=== PATIENT | male | born 1980 | race Two or more races ===

== ENCOUNTER 2018-08-30 14:46 | Emergency (ER) | payer MEDICAID ==
[~2018-08-30] VITALS: Ht 167.6 cm; Wt 90.0 kg
[2018-08-30 16:38] LABS: BASOPHILS % 0.3 % (0.0-2.0); EOSINOPHILS % 0.5 % (0.0-5.0); HEMATOCRIT. 47.7 % (42.0-52.0); HEMOGLOBIN. 16.1 g/dL (14.0-18.0); LYMPHOCYTES % 16.2 % (20.0-50.0); MEAN CORPUSCULAR HEMOGLOBIN 32.7 pg (28.0-32.0); MEAN CORPUSCULAR VOLUME 96.9 fL (80.0-94.0); MONOCYTES % 11.9 % (2.0-8.0); NEUTROPHILS % 71.1 % (40.0-76.0); RED BLOOD CELL COUNT 4.92 mill/uL (4.7-6.1); RED CELL DISTRIBUTION WIDTH 14.5 % (11.6-14.6)
[2018-08-30 16:39] LABS: CHLORIDE 105 mEq/L (98-107)
[2018-08-30 16:46] LABS: ETHANOL BLOOD < 10 mg/dL
[2018-08-30 16:52] LABS: CLARITY URINE CLEAR (CLEAR); COLOR URINE YELLOW (YELLOW); KETONES URINE TRACE (NEGATIVE); LEUKOCYTE ESTERASE URINE NEGATIVE (NEGATIVE); NITRITE URINE NEGATIVE (NEGATIVE); OCCULT BLOOD URINE NEGATIVE (NEGATIVE); PROTEIN URINE 1+ (NEGATIVE); UROBILINOGEN URINE 0.2 E.U./dL (0.2-1.0)
[2018-08-30 16:56] LABS: MEAN PLATELET VOLUME 9.3 fl (7.4-10.4); PLATELET 220 x1000/uL (130-400)
[2018-08-30] MEDS ORDERED: LORAZEPAM 1MG TABLET PO ONE (18:30)
[2018-08-31 04:06] VITALS: BP 153/98
[2018-08-31 08:13] LABS: *AMPHETAMINES SCREEN URINE NEGATIVE (NEGATIVE); *BARBITURATES SCREEN URINE NEGATIVE (NEGATIVE); *BENZODIAZEPINES SCREEN URINE NEGATIVE (NEGATIVE); *COCAINE SCREEN URINE NEGATIVE (NEGATIVE); METHADONE URINE SCREEN NEGATIVE (NEGATIVE)
[2018-08-31 08:14] LABS: CANNABINOID URINE SCREEN NEGATIVE (NEGATIVE); OPIATES URINE SCREEN NEGATIVE (NEGATIVE); PHENCYCLIDINE URINE SCREEN NEGATIVE (NEGATIVE)
== END 2018-08-31 10:39 | disposition home or self-care (01) ==
LOC: ER 14:49
DX: R51 Headache (principal); F17.200 Nicotine dependence, unspecified, uncomplicated
CPT/HCPCS: 36415; 80305; 80307; 80320; 99283; G0480

== ENCOUNTER 2019-01-29 22:44 | Emergency (ER) | payer MEDICAID ==
[~2019-01-29] VITALS: Ht 175.3 cm; Wt 80.0 kg
[2019-01-29] MEDS ORDERED: SODIUM CHLORIDE 0.9% 1,000 ML IV ONE ×2 (23:14)
[2019-01-29] MEDS ORDERED: LORAZEPAM 2MG/ML CPJ IV ONE (23:15)
[2019-01-29] MEDS ORDERED: ONDANSETRON HCL 4MG/2ML INJ IV PRN (23:15)
[2019-01-29 23:33] LABS: BASOPHILS % 0.2 % (0.0-2.0); EOSINOPHILS % 0.2 % (0.0-5.0); HEMOGLOBIN. 16.7 g/dL (14.0-18.0); LYMPHOCYTES % 11.9 % (20.0-50.0); MEAN CORPUSCULAR HEMOGLOBIN 33.2 pg (28.0-32.0); MEAN CORPUSCULAR VOLUME 97.6 fL (80.0-94.0); MEAN PLATELET VOLUME 8.9 fl (7.4-10.4); MONOCYTES % 5.1 % (2.0-8.0); NEUTROPHILS % 82.6 % (40.0-76.0); PLATELET 224 x1000/uL (130-400); RED BLOOD CELL COUNT 5.02 mill/uL (4.7-6.1); RED CELL DISTRIBUTION WIDTH 13.9 % (11.6-14.6)
[2019-01-29 23:38] LABS: CHLORIDE 107 mEq/L (98-107)
[2019-01-29 23:43] LABS: ETHANOL BLOOD 76 mg/dL
[2019-01-29 23:58] LABS: CLARITY URINE CLEAR (CLEAR); COLOR URINE YELLOW (YELLOW); KETONES URINE TRACE (NEGATIVE); LEUKOCYTE ESTERASE URINE NEGATIVE (NEGATIVE); NITRITE URINE NEGATIVE (NEGATIVE); OCCULT BLOOD URINE NEGATIVE (NEGATIVE); PH URINE 7.5 (4.5-8.0); PROTEIN URINE 1+ (NEGATIVE)
[2019-01-30 00:16] LABS: CANNABINOID URINE SCREEN NEGATIVE (NEGATIVE)
[2019-01-30 00:17] LABS: *AMPHETAMINES SCREEN URINE PRESUMTIVE POSITIVE (NEGATIVE); *BARBITURATES SCREEN URINE NEGATIVE (NEGATIVE); *BENZODIAZEPINES SCREEN URINE NEGATIVE (NEGATIVE); *COCAINE SCREEN URINE NEGATIVE (NEGATIVE); OPIATES URINE SCREEN NEGATIVE (NEGATIVE); PHENCYCLIDINE URINE SCREEN NEGATIVE (NEGATIVE)
[2019-01-30 00:19] LABS: METHADONE URINE SCREEN NEGATIVE (NEGATIVE)
[2019-01-30] MEDS ORDERED: LORAZEPAM 2MG/ML CPJ IV ONE (01:30)
[2019-01-30 06:52] VITALS: BP 151/102
== END 2019-01-30 06:53 | disposition home or self-care (01) ==
LOC: ER 22:44
DX: F15.10 Other stimulant abuse, uncomplicated (principal); F20.9 Schizophrenia, unspecified
CPT/HCPCS: 36415; 71045; 74018; 80053; 80305; 80307; 80320; 80329; 81003; 85025; 93005; 96374; 96375; 96376; 99284; J2060; J2405; J7030; G0480

== ENCOUNTER 2019-01-30 22:50 | Emergency (ER) | payer MEDICAID ==
[~2019-01-30] VITALS: Ht 170.2 cm; Wt 100.0 kg
[2019-01-30] MEDS ORDERED: IBUPROFEN 600MG TABLET PO STA (23:43)
[2019-01-31 02:06] VITALS: BP 164/93
== END 2019-01-31 02:09 | disposition home or self-care (01) ==
LOC: ER 22:50
DX: R07.81 Pleurodynia (principal); F20.9 Schizophrenia, unspecified; F22 Delusional disorders; F15.10 Other stimulant abuse, uncomplicated; L98.8 Other specified disorders of the skin and subcutaneous tissue; Z98.890 Other specified postprocedural states
CPT/HCPCS: 71045; 99283

== ENCOUNTER 2019-02-07 02:13 | Emergency (ER) | payer MEDICAID ==
[~2019-02-07] VITALS: Ht 167.6 cm; Wt 100.0 kg
[2019-02-07] MEDS ORDERED: DIPHENHYDRAMINE 25MG CAPSULE PO ONE (03:15)
[2019-02-07] MEDS ORDERED: LORAZEPAM 1MG TABLET PO ONE (03:15)
[2019-02-07 05:52] VITALS: BP 179/122
== END 2019-02-07 06:20 | disposition home or self-care (01) ==
LOC: ER 02:13
DX: S60.562A Insect bite (nonvenomous) of left hand, initial encounter (principal); F15.10 Other stimulant abuse, uncomplicated; F20.9 Schizophrenia, unspecified; W57.XXXA Bitten or stung by nonvenomous insect and other nonvenomous arthropods, initial encounter; Y93.89 Activity, other specified; Y92.018 Other place in single-family (private) house as the place of occurrence of the external cause
CPT/HCPCS: 73130; 93005; 99283; Q0163

== ENCOUNTER 2019-03-17 23:02 | Emergency (ER) | payer MEDICAID ==
[~2019-03-17] VITALS: Ht 170.2 cm; Wt 100.0 kg
[2019-03-18] MEDS ORDERED: IBUPROFEN 600MG TABLET PO ONE (02:15)
[2019-03-18] MEDS ORDERED: LORAZEPAM 1MG TABLET PO ONE (02:15)
[2019-03-18 10:43] LABS: *AMPHETAMINES SCREEN URINE PRESUMTIVE POSITIVE (NEGATIVE); *BARBITURATES SCREEN URINE NEGATIVE (NEGATIVE); *BENZODIAZEPINES SCREEN URINE NEGATIVE (NEGATIVE); *COCAINE SCREEN URINE NEGATIVE (NEGATIVE); METHADONE URINE SCREEN NEGATIVE (NEGATIVE); OPIATES URINE SCREEN NEGATIVE (NEGATIVE)
[2019-03-18 10:45] LABS: CANNABINOID URINE SCREEN NEGATIVE (NEGATIVE); PHENCYCLIDINE URINE SCREEN NEGATIVE (NEGATIVE)
[2019-03-18 10:46] VITALS: BP 112/68
== END 2019-03-18 14:00 | disposition left against medical advice (07) ==
LOC: ER 23:02
DX: F15.188 Other stimulant abuse with other stimulant-induced disorder (principal); F22 Delusional disorders; R44.0 Auditory hallucinations; R03.0 Elevated blood-pressure reading, without diagnosis of hypertension
CPT/HCPCS: 80305; 93005; 99284

== ENCOUNTER 2019-03-29 09:58 | Inpatient (IN) | payer MEDICAID ==
[~2019-03-29] VITALS: Ht 167.6 cm; Wt 104.3 kg
[2019-03-29] MEDS ORDERED: SODIUM CHLORIDE 0.9% 1,000 ML IV ONE (10:31)
[2019-03-29] MEDS ORDERED: LORAZEPAM 2MG/ML CPJ IV ONE ×2 (10:45→11:15)
[2019-03-29 10:58] LABS: BASOPHILS % 0.2 % (0.0-2.0); HEMATOCRIT. 48.5 % (42.0-52.0); HEMOGLOBIN. 16.5 g/dL (14.0-18.0); LYMPHOCYTES % 9.8 % (20.0-50.0); MEAN CORPUSCULAR HEMOGLOBIN 32.7 pg (28.0-32.0); MEAN CORPUSCULAR VOLUME 95.9 fL (80.0-94.0); MEAN PLATELET VOLUME 9.2 fl (7.4-10.4); MONOCYTES % 6.6 % (2.0-8.0); NEUTROPHILS % 83.4 % (40.0-76.0); PLATELET 236 x1000/uL (130-400); RED BLOOD CELL COUNT 5.05 mill/uL (4.7-6.1); RED CELL DISTRIBUTION WIDTH 14.2 % (11.6-14.6)
[2019-03-29 11:06] LABS: CHLORIDE 107 mEq/L (98-107)
[2019-03-29 11:11] LABS: ETHANOL BLOOD 52 mg/dL
[2019-03-29] MEDS ORDERED: ENALAPRIL 2.5MG/2ML VIAL 2ML IV ONE (11:45)
[2019-03-29] MEDS ORDERED: NICARDIPINE 40MG/200ML PREMIX 200 ML IV STA (12:08)
[2019-03-29 12:09] LABS: CREATINE KINASE MB FRACTION 1.7 ng/mL (0.5-3.6)
[2019-03-29] MEDS ORDERED: ASPIRIN 81MG TABLET PO ONE (12:15)
[2019-03-29 13:29] LABS: CLARITY URINE TURBID (CLEAR); COLOR URINE YELLOW (YELLOW); KETONES URINE 1+ (NEGATIVE); LEUKOCYTE ESTERASE URINE NEGATIVE (NEGATIVE); NITRITE URINE NEGATIVE (NEGATIVE); OCCULT BLOOD URINE TRACE (NEGATIVE); PROTEIN URINE 1+ (NEGATIVE); SPECIFIC GRAVITY URINE 1.025 (1.005-1.030); UROBILINOGEN URINE 0.2 E.U./dL (0.2-1.0)
[2019-03-29 13:43] LABS: *COCAINE SCREEN URINE NEGATIVE (NEGATIVE); METHADONE URINE SCREEN NEGATIVE (NEGATIVE); OPIATES URINE SCREEN NEGATIVE (NEGATIVE)
[2019-03-29 13:44] LABS: *AMPHETAMINES SCREEN URINE PRESUMTIVE POSITIVE (NEGATIVE); *BARBITURATES SCREEN URINE NEGATIVE (NEGATIVE); *BENZODIAZEPINES SCREEN URINE NEGATIVE (NEGATIVE); CANNABINOID URINE SCREEN NEGATIVE (NEGATIVE); PHENCYCLIDINE URINE SCREEN NEGATIVE (NEGATIVE)
[2019-03-29] MEDS ORDERED: LORAZEPAM 2MG/ML CPJ IV PRN (17:15)
[2019-03-29] MEDS ORDERED: HYDRALAZINE 20MG/ML VIAL IV PRN (17:15)
[2019-03-29 17:47] VITALS: BP 173/105
[2019-03-29 18:01] VITALS: BP 165/98
[2019-03-29] MEDS ORDERED: ACETAMINOPHEN 325MG TABLET PO PRN (19:15)
[2019-03-29] MEDS ORDERED: CLONIDINE 0.1MG TABLET PO PRN (19:15)
[2019-03-29] MEDS ORDERED: ONDANSETRON HCL 4MG/2ML INJ IV PRN (19:15)
[2019-03-29] MEDS ORDERED: MAGNESIUM/ALUMINUM HYDROXIDE/SIMETHICONE 30ML UDC PO PRN (19:15)
[2019-03-29] MEDS ORDERED: DIPHENHYDRAMINE 50MG/ML VIAL IV PRN (19:15)
[2019-03-29] MEDS ORDERED: INFLUENZA VIRUS VACCINE(AFLURIA) 0.5ML SYR IM ONE (19:45)
[2019-03-29 20:00] VITALS: BP 156/90
[2019-03-29] MEDS: NIFEDIPINE XL 60MG TAB PO SCH (20:16)
[2019-03-29] MEDS ORDERED: PNEUMOCOCCAL 23-VAL P-SAC VAC 0.5 ML IM ONE (21:45)
[2019-03-29 22:00] VITALS: BP 129/75
[2019-03-29] MEDS ORDERED: CHLORDIAZEPOXIDE 25MG CAPSULE PO SCH (22:00)
[2019-03-29] MEDS: SODIUM CHLORIDE 0.9% INJ 3ML FLUSH IVF SCH (22:00)
[2019-03-29] MEDS: DIAZEPAM 5 MG TABLET PO SCH (22:10)
[2019-03-30] VITALS (12 sets, daily range): BP systolic 102–146; BP diastolic 57–83
[2019-03-30] MEDS: DIAZEPAM 5 MG TABLET PO SCH ×2 (06:12→14:27)
[2019-03-30] MEDS: SODIUM CHLORIDE 0.9% INJ 3ML FLUSH IVF SCH ×3 (06:12→22:00)
[2019-03-30] MEDS: NIFEDIPINE XL 60MG TAB PO SCH (09:29)
[2019-03-30] MEDS ORDERED: CEFTRIAXONE SODIUM 1 G/VIAL IM ONE (18:30)
[2019-03-30] MEDS ORDERED: CEFTRIAXONE 1 G PREMIX 50 ML IV SCH (20:00)
[2019-03-31] VITALS: BP 140/73
[2019-03-31 00:43] VITALS: BP 140/73
[2019-03-31 02:01] VITALS: BP 121/76
[2019-03-31 04:00] VITALS: BP 104/60
[2019-03-31] MEDS: SODIUM CHLORIDE 0.9% INJ 3ML FLUSH IVF SCH (06:31)
[2019-03-31] MEDS ORDERED: NIFE10CA PO (06:45)
[2019-03-31 06:51] VITALS: BP 125/72
[2019-03-31 07:30] VITALS: BP 127/65
[2019-03-31] MEDS ORDERED: NIFEDIPINE XL 30MG TAB PO SCH (09:00)
== END 2019-03-31 07:52 | disposition home or self-care (01) | DRG 52 ==
LOC: ER 09:58 → 3WST 14:15 → EDBEDREQTM 14:18 → EDBEDREQSVC 14:18 → ENRESERV 14:24
PROVIDERS: ADMIT Internal Medicine; ATTEND Internal Medicine
DX: G92 Toxic encephalopathy (principal); E66.01 Morbid (severe) obesity due to excess calories; I10 Essential (primary) hypertension; A46 Erysipelas; I16.1 Hypertensive emergency; Z68.37 Body mass index [BMI] 37.0-37.9, adult; Z79.899 Other long term (current) drug therapy; Z87.891 Personal history of nicotine dependence
CPT/HCPCS: 36415; 71045; 80305; 80307; 80320; 80329; 81003; 82550; 82553; 84443; 84484; 90686; 90732; 93005; 93970; 99291; J0360; J0696; J2060; J3490; J7030; G0480

== ENCOUNTER 2019-04-13 23:00 | Emergency (ER) | payer MEDICAID, OTHER ==
[~2019-04-13] VITALS: Ht 170.2 cm; Wt 109.0 kg
[~2019-04-13 23:00] MED LIST: NIFE10CA PO
[2019-04-13] MEDS ORDERED: KETOROLAC 30MG/ML VIAL IV STA (23:45)
[2019-04-13] MEDS ORDERED: SODIUM CHLORIDE 0.9% 1,000 ML IV ONE (23:45)
[2019-04-14 00:21] LABS: BASOPHILS % 0.2 % (0.0-2.0); EOSINOPHILS % 0.4 % (0.0-5.0); HEMATOCRIT. 44.7 % (42.0-52.0); HEMOGLOBIN. 15.4 g/dL (14.0-18.0); LYMPHOCYTES % 12.4 % (20.0-50.0); MEAN CORPUSCULAR HEMOGLOBIN 32.6 pg (28.0-32.0); MEAN PLATELET VOLUME 9.1 fl (7.4-10.4); MONOCYTES % 9.3 % (2.0-8.0); NEUTROPHILS % 77.7 % (40.0-76.0); PLATELET 203 x1000/uL (130-400); RED BLOOD CELL COUNT 4.71 mill/uL (4.7-6.1); RED CELL DISTRIBUTION WIDTH 13.7 % (11.6-14.6)
[2019-04-14 00:29] LABS: CHLORIDE 104 mEq/L (98-107)
[2019-04-14 00:31] LABS: ETHANOL BLOOD < 10 mg/dL
[2019-04-14 00:55] LABS: CLARITY URINE CLEAR (CLEAR); COLOR URINE YELLOW (YELLOW); KETONES URINE NEGATIVE (NEGATIVE); LEUKOCYTE ESTERASE URINE NEGATIVE (NEGATIVE); NITRITE URINE NEGATIVE (NEGATIVE); OCCULT BLOOD URINE NEGATIVE (NEGATIVE); PH URINE 7.5 (4.5-8.0); PROTEIN URINE NEGATIVE (NEGATIVE); SPECIFIC GRAVITY URINE 1.018 (1.005-1.030); UROBILINOGEN URINE 0.2 E.U./dL (0.2-1.0)
[2019-04-14 01:06] LABS: *BENZODIAZEPINES SCREEN URINE NEGATIVE (NEGATIVE); *COCAINE SCREEN URINE NEGATIVE (NEGATIVE); METHADONE URINE SCREEN NEGATIVE (NEGATIVE)
[2019-04-14 01:07] LABS: *AMPHETAMINES SCREEN URINE NEGATIVE (NEGATIVE); *BARBITURATES SCREEN URINE NEGATIVE (NEGATIVE); CANNABINOID URINE SCREEN NEGATIVE (NEGATIVE); OPIATES URINE SCREEN NEGATIVE (NEGATIVE); PHENCYCLIDINE URINE SCREEN NEGATIVE (NEGATIVE)
[2019-04-14] MEDS ORDERED: IOHEXOL-300 100 ML BOTTLE ONE (04:41)
[2019-04-14 05:25] VITALS: BP 132/97
== END 2019-04-14 05:34 | disposition home or self-care (01) ==
LOC: ER 23:00
DX: R10.31 Right lower quadrant pain (principal); I10 Essential (primary) hypertension; F12.10 Cannabis abuse, uncomplicated; F17.200 Nicotine dependence, unspecified, uncomplicated
CPT/HCPCS: 36415; 74177; 80053; 80305; 80320; 81003; 83690; 85025; 96374; 99284; J1885; J7030; Q9967; Z7610; G0480

== ENCOUNTER 2019-04-20 03:52 | Emergency (ER) | payer MEDICAID ==
[~2019-04-20] VITALS: Ht 167.6 cm; Wt 100.0 kg
[2019-04-20] MEDS ORDERED: MORPHINE SULFATE 4 MG/ML CPJ (NOT FOR IM USE) IV STA (04:14)
[2019-04-20] MEDS ORDERED: ONDANSETRON HCL 4MG/2ML INJ IV STA (04:14)
[2019-04-20] MEDS ORDERED: SODIUM CHLORIDE 0.9% 1,000 ML IV ONE ×2 (04:14→10:04)
[2019-04-20 04:37] LABS: BASOPHILS % 0.5 % (0.0-2.0); HEMATOCRIT. 45.5 % (42.0-52.0); HEMOGLOBIN. 15.5 g/dL (14.0-18.0); LYMPHOCYTES % 13.3 % (20.0-50.0); MEAN CORPUSCULAR HEMOGLOBIN 32.4 pg (28.0-32.0); MEAN PLATELET VOLUME 8.9 fl (7.4-10.4); MONOCYTES % 6.4 % (2.0-8.0); NEUTROPHILS % 79.8 % (40.0-76.0); PLATELET 261 x1000/uL (130-400); RED BLOOD CELL COUNT 4.79 mill/uL (4.7-6.1); RED CELL DISTRIBUTION WIDTH 14.1 % (11.6-14.6)
[2019-04-20 04:41] LABS: CHLORIDE 108 mEq/L (98-107)
[2019-04-20 04:42] LABS: INR 1.1
[2019-04-20] MEDS ORDERED: AMOXICILLIN/POTASSIUM CLAVULANATE 875/125MG TAB PO ONE (05:45)
[2019-04-20] MEDS ORDERED: MORPHINE SULFATE 4 MG/ML CPJ (NOT FOR IM USE) IV ONE (06:45)
[2019-04-20 07:08] LABS: CLARITY URINE CLEAR (CLEAR); COLOR URINE YELLOW (YELLOW); KETONES URINE 1+ (NEGATIVE); LEUKOCYTE ESTERASE URINE NEGATIVE (NEGATIVE); NITRITE URINE NEGATIVE (NEGATIVE); OCCULT BLOOD URINE TRACE (NEGATIVE); PH URINE 5.5 (4.5-8.0); PROTEIN URINE TRACE (NEGATIVE); SPECIFIC GRAVITY URINE 1.019 (1.005-1.030); UROBILINOGEN URINE 0.2 E.U./dL (0.2-1.0)
[2019-04-20] MEDS ORDERED: LORAZEPAM 2MG/ML CPJ IV ONE (10:15)
[2019-04-20] MEDS ORDERED: LORAZEPAM 1MG TABLET PO ONE (10:15)
[2019-04-20 14:28] LABS: *AMPHETAMINES SCREEN URINE PRESUMTIVE POSITIVE (NEGATIVE); *BARBITURATES SCREEN URINE NEGATIVE (NEGATIVE); *BENZODIAZEPINES SCREEN URINE NEGATIVE (NEGATIVE); *COCAINE SCREEN URINE NEGATIVE (NEGATIVE)
[2019-04-20 14:29] LABS: CANNABINOID URINE SCREEN NEGATIVE (NEGATIVE); METHADONE URINE SCREEN NEGATIVE (NEGATIVE); OPIATES URINE SCREEN PRESUMTIVE POSITIVE (NEGATIVE); PHENCYCLIDINE URINE SCREEN NEGATIVE (NEGATIVE)
[2019-04-21] MEDS ORDERED: ACETAMINOPHEN 500MG TABLET PO ONE (00:15)
[2019-04-21] MEDS ORDERED: ACETAMINOPHEN 325MG TABLET PO STA (14:34)
[2019-04-21 15:45] VITALS: BP 134/77
== END 2019-04-21 16:00 | disposition home or self-care (01) ==
LOC: ER 03:58
DX: K57.32 Diverticulitis of large intestine without perforation or abscess without bleeding (principal); T43.621A Poisoning by amphetamines, accidental (unintentional), initial encounter; I10 Essential (primary) hypertension; Z79.899 Other long term (current) drug therapy; Y92.89 Other specified places as the place of occurrence of the external cause
CPT/HCPCS: 36415; 71045; 74176; 80053; 80305; 81003; 83690; 84484; 85025; 85610; 93005; 96374; 96375; 96376; 99284; J2060; J2270; J2405; J7030; Z7610

== ENCOUNTER 2019-04-23 00:36 | Emergency (ER) | payer MEDICAID ==
[~2019-04-23] VITALS: Ht 170.2 cm; Wt 100.0 kg
[2019-04-23 01:05] VITALS: BP 160/105
[2019-04-23] MEDS ORDERED: ACETAMINOPHEN 500MG TABLET PO ONE (01:15)
== END 2019-04-23 05:43 | disposition home or self-care (01) ==
LOC: ER 00:36
DX: G89.29 Other chronic pain (principal); R10.30 Lower abdominal pain, unspecified; F15.10 Other stimulant abuse, uncomplicated; R51 Headache; Z98.890 Other specified postprocedural states
CPT/HCPCS: 99283; Z7610

== ENCOUNTER 2019-05-23 05:29 | Emergency (ER) | payer MEDICAID ==
[~2019-05-23] VITALS: Ht 172.7 cm; Wt 100.0 kg
[2019-05-23] MEDS ORDERED: IBUPROFEN 600MG TABLET PO STA (09:00)
[2019-05-23 10:02] VITALS: BP 193/127
[2019-05-23] MEDS ORDERED: LORAZEPAM 1MG TABLET PO ONE (10:15)
[2019-05-23 10:21] LABS: CLARITY URINE CLEAR (CLEAR); COLOR URINE YELLOW (YELLOW); KETONES URINE TRACE (NEGATIVE); LEUKOCYTE ESTERASE URINE NEGATIVE (NEGATIVE); NITRITE URINE NEGATIVE (NEGATIVE); OCCULT BLOOD URINE NEGATIVE (NEGATIVE); PH URINE 5.5 (4.5-8.0); PROTEIN URINE 1+ (NEGATIVE); SPECIFIC GRAVITY URINE 1.022 (1.005-1.030); UROBILINOGEN URINE 0.2 E.U./dL (0.2-1.0)
[2019-05-23 11:02] LABS: *AMPHETAMINES SCREEN URINE PRESUMTIVE POSITIVE (NEGATIVE)
[2019-05-23 11:03] LABS: *BARBITURATES SCREEN URINE NEGATIVE (NEGATIVE); *BENZODIAZEPINES SCREEN URINE NEGATIVE (NEGATIVE); *COCAINE SCREEN URINE NEGATIVE (NEGATIVE); METHADONE URINE SCREEN NEGATIVE (NEGATIVE); OPIATES URINE SCREEN NEGATIVE (NEGATIVE); PHENCYCLIDINE URINE SCREEN NEGATIVE (NEGATIVE)
[2019-05-23 11:04] LABS: CANNABINOID URINE SCREEN NEGATIVE (NEGATIVE)
== END 2019-05-23 11:19 | disposition home or self-care (01) ==
LOC: ER 05:29
DX: F15.10 Other stimulant abuse, uncomplicated (principal); F17.210 Nicotine dependence, cigarettes, uncomplicated
CPT/HCPCS: 36415; 71045; 73552; 80305; 80320; 81003; 93005; 99284; G0480

== ENCOUNTER 2019-05-23 20:37 | Emergency (ER) | payer MEDICAID, OTHER ==
[~2019-05-23] VITALS: Ht 182.9 cm; Wt 96.0 kg
[2019-05-23 23:32] LABS: BASOPHILS % 0.4 % (0.0-2.0); EOSINOPHILS % 0.1 % (0.0-5.0); HEMATOCRIT. 48.9 % (42.0-52.0); HEMOGLOBIN. 16.4 g/dL (14.0-18.0); LYMPHOCYTES % 15.9 % (20.0-50.0); MEAN CORPUSCULAR HEMOGLOBIN 31.9 pg (28.0-32.0); MEAN CORPUSCULAR VOLUME 95.3 fL (80.0-94.0); MONOCYTES % 10.1 % (2.0-8.0); NEUTROPHILS % 73.5 % (40.0-76.0); PLATELET 231 x1000/uL (130-400); RED BLOOD CELL COUNT 5.14 mill/uL (4.7-6.1)
[2019-05-23 23:40] LABS: CHLORIDE 102 mEq/L (98-107)
[2019-05-24] MEDS ORDERED: SODIUM CHLORIDE 0.9% 1,000 ML IV ONE (00:13)
[2019-05-24 01:49] LABS: *AMPHETAMINES SCREEN URINE PRESUMTIVE POSITIVE (NEGATIVE); *BARBITURATES SCREEN URINE NEGATIVE (NEGATIVE)
[2019-05-24 01:51] LABS: *BENZODIAZEPINES SCREEN URINE NEGATIVE (NEGATIVE); *COCAINE SCREEN URINE NEGATIVE (NEGATIVE); CANNABINOID URINE SCREEN NEGATIVE (NEGATIVE); METHADONE URINE SCREEN NEGATIVE (NEGATIVE); OPIATES URINE SCREEN NEGATIVE (NEGATIVE); PHENCYCLIDINE URINE SCREEN NEGATIVE (NEGATIVE)
[2019-05-24 02:03] LABS: HEPATITIS B SURFACE ANTIGEN NEGATIVE
[2019-05-24 02:32] LABS: HEPATITIS A AB IGM NEGATIVE (NEGATIVE)
[2019-05-24 07:01] VITALS: BP 143/82
[2019-05-26 13:06] LABS: HIV SCREEN 4G Non Reactive (Non Reactive)
== END 2019-05-24 07:03 | disposition home or self-care (01) ==
LOC: ER 20:37
DX: R07.89 Other chest pain (principal); F15.10 Other stimulant abuse, uncomplicated
CPT/HCPCS: 36415; 71045; 80053; 80305; 84484; 85025; 87389; 93005; 99284; J7030; 86705; 86709; 86803; 87340

== ENCOUNTER 2019-05-25 02:26 | Emergency (ER) | payer MEDICAID ==
[~2019-05-25] VITALS: Ht 165.1 cm; Wt 100.0 kg
[2019-05-25] MEDS ORDERED: ACETAMINOPHEN 325MG TABLET PO ONE (03:30)
[2019-05-25 04:08] VITALS: BP 154/107
== END 2019-05-25 04:27 | disposition home or self-care (01) ==
LOC: ER 02:26
DX: M79.605 Pain in left leg (principal); F99 Mental disorder, not otherwise specified; F15.10 Other stimulant abuse, uncomplicated
CPT/HCPCS: 93005; 99283

== ENCOUNTER 2019-05-31 23:54 | Emergency (ER) | payer MEDICAID ==
[~2019-05-31] VITALS: Ht 180.3 cm; Wt 110.0 kg
[2019-06-01] MEDS ORDERED: SODIUM CHLORIDE 0.9% 1,000 ML IV ONE ×2 (01:00→03:15)
[2019-06-01] MEDS ORDERED: LORAZEPAM 2MG/ML CPJ IV ONE ×2 (01:00→03:15)
[2019-06-01 01:17] LABS: BASOPHILS % 0.2 % (0.0-2.0); HEMATOCRIT. 48.5 % (42.0-52.0); HEMOGLOBIN. 16.3 g/dL (14.0-18.0); LYMPHOCYTES % 12.9 % (20.0-50.0); MEAN CORPUSCULAR HEMOGLOBIN 32.1 pg (28.0-32.0); MEAN CORPUSCULAR VOLUME 95.3 fL (80.0-94.0); MEAN PLATELET VOLUME 8.8 fl (7.4-10.4); MONOCYTES % 8.3 % (2.0-8.0); NEUTROPHILS % 78.6 % (40.0-76.0); PLATELET 243 x1000/uL (130-400); RED BLOOD CELL COUNT 5.09 mill/uL (4.7-6.1)
[2019-06-01 01:27] LABS: CHLORIDE 109 mEq/L (98-107)
[2019-06-01 01:31] LABS: ETHANOL BLOOD 13 mg/dL
[2019-06-01 03:18] LABS: *AMPHETAMINES SCREEN URINE PRESUMTIVE POSITIVE (NEGATIVE); *BARBITURATES SCREEN URINE NEGATIVE (NEGATIVE); *BENZODIAZEPINES SCREEN URINE NEGATIVE (NEGATIVE); *COCAINE SCREEN URINE NEGATIVE (NEGATIVE)
[2019-06-01 03:19] LABS: CANNABINOID URINE SCREEN NEGATIVE (NEGATIVE); METHADONE URINE SCREEN NEGATIVE (NEGATIVE); OPIATES URINE SCREEN NEGATIVE (NEGATIVE); PHENCYCLIDINE URINE SCREEN NEGATIVE (NEGATIVE)
[2019-06-01 07:56] VITALS: BP 131/72
== END 2019-06-01 08:00 | disposition home or self-care (01) ==
LOC: ER 23:54
DX: F15.10 Other stimulant abuse, uncomplicated (principal); R07.89 Other chest pain
CPT/HCPCS: 36415; 71045; 80053; 80305; 80320; 84484; 85025; 93005; 96374; 96376; 99284; J2060; J7030; Z7610; G0480

== ENCOUNTER 2019-06-05 03:16 | Emergency (ER) | payer MEDICAID ==
[~2019-06-05] VITALS: Ht 162.6 cm; Wt 90.0 kg
[2019-06-05] MEDS ORDERED: SODIUM CHLORIDE 0.9% 1,000 ML IV ONE (05:00)
[2019-06-05 05:12] LABS: BASOPHILS % 0.3 % (0.0-2.0); EOSINOPHILS % 0.3 % (0.0-5.0); HEMATOCRIT. 45.3 % (42.0-52.0); HEMOGLOBIN. 15.6 g/dL (14.0-18.0); LYMPHOCYTES % 18.4 % (20.0-50.0); MEAN CORPUSCULAR HEMOGLOBIN 32.2 pg (28.0-32.0); MEAN CORPUSCULAR VOLUME 93.5 fL (80.0-94.0); MEAN PLATELET VOLUME 8.9 fl (7.4-10.4); MONOCYTES % 10.8 % (2.0-8.0); NEUTROPHILS % 70.2 % (40.0-76.0); PLATELET 235 x1000/uL (130-400); RED BLOOD CELL COUNT 4.84 mill/uL (4.7-6.1); RED CELL DISTRIBUTION WIDTH 13.9 % (11.6-14.6)
[2019-06-05] MEDS ORDERED: IBUPROFEN 600MG TABLET PO ONE (05:15)
[2019-06-05 05:23] LABS: CHLORIDE 106 mEq/L (98-107)
[2019-06-05 05:23] LABS: *BARBITURATES SCREEN URINE NEGATIVE (NEGATIVE); *BENZODIAZEPINES SCREEN URINE NEGATIVE (NEGATIVE); *COCAINE SCREEN URINE PRESUMTIVE POSITIVE (NEGATIVE); METHADONE URINE SCREEN NEGATIVE (NEGATIVE); OPIATES URINE SCREEN NEGATIVE (NEGATIVE); PHENCYCLIDINE URINE SCREEN NEGATIVE (NEGATIVE)
[2019-06-05 05:24] LABS: *AMPHETAMINES SCREEN URINE NEGATIVE (NEGATIVE); CANNABINOID URINE SCREEN NEGATIVE (NEGATIVE)
[2019-06-05 05:27] LABS: ETHANOL BLOOD < 10 mg/dL
[2019-06-05] MEDS ORDERED: HYDROCODONE/ACETAMINOPHEN 5/325MG TABLET PO ONE (06:30)
[2019-06-05 08:05] VITALS: BP 121/81
== END 2019-06-05 08:08 | disposition home or self-care (01) ==
LOC: ER 03:16
DX: R07.89 Other chest pain (principal); E86.0 Dehydration; F15.10 Other stimulant abuse, uncomplicated; F14.10 Cocaine abuse, uncomplicated
CPT/HCPCS: 36415; 80053; 80305; 80320; 84484; 85025; 93005; 99284; J7030; Z7610; G0480

== ENCOUNTER 2019-06-13 07:07 | Emergency (ER) | payer MEDICAID ==
[~2019-06-13] VITALS: Ht 172.7 cm; Wt 107.0 kg
[2019-06-13 09:15] LABS: BASOPHILS % 0.3 % (0.0-2.0); EOSINOPHILS % 0.1 % (0.0-5.0); HEMATOCRIT. 43.6 % (42.0-52.0); HEMOGLOBIN. 15.2 g/dL (14.0-18.0); LYMPHOCYTES % 14.8 % (20.0-50.0); MEAN CORPUSCULAR HEMOGLOBIN 32.6 pg (28.0-32.0); MEAN CORPUSCULAR VOLUME 93.5 fL (80.0-94.0); MEAN PLATELET VOLUME 8.8 fl (7.4-10.4); MONOCYTES % 10.6 % (2.0-8.0); NEUTROPHILS % 74.2 % (40.0-76.0); PLATELET 220 x1000/uL (130-400); RED BLOOD CELL COUNT 4.66 mill/uL (4.7-6.1)
[2019-06-13 09:18] LABS: CHLORIDE 106 mEq/L (98-107)
[2019-06-13 09:21] LABS: *AMPHETAMINES SCREEN URINE PRESUMTIVE POSITIVE (NEGATIVE); *BARBITURATES SCREEN URINE NEGATIVE (NEGATIVE); *BENZODIAZEPINES SCREEN URINE NEGATIVE (NEGATIVE); *COCAINE SCREEN URINE PRESUMTIVE POSITIVE (NEGATIVE); METHADONE URINE SCREEN NEGATIVE (NEGATIVE); OPIATES URINE SCREEN NEGATIVE (NEGATIVE)
[2019-06-13 09:22] LABS: CANNABINOID URINE SCREEN NEGATIVE (NEGATIVE); PHENCYCLIDINE URINE SCREEN NEGATIVE (NEGATIVE)
[2019-06-13 09:57] VITALS: BP 148/98
== END 2019-06-13 10:00 | disposition home or self-care (01) ==
LOC: ER 07:07
DX: F15.10 Other stimulant abuse, uncomplicated (principal); F14.10 Cocaine abuse, uncomplicated
CPT/HCPCS: 36415; 71045; 80053; 80305; 83880; 84484; 85025; 93005; 99285

== ENCOUNTER 2019-07-06 06:44 | Emergency (ER) | payer MEDICAID, OTHER ==
[~2019-07-06] VITALS: Ht 170.2 cm; Wt 87.0 kg
[2019-07-06 08:50] VITALS: BP 156/99
== END 2019-07-06 09:08 | disposition home or self-care (01) ==
LOC: ER 06:44
DX: F15.10 Other stimulant abuse, uncomplicated (principal); F19.10 Other psychoactive substance abuse, uncomplicated; M79.10 Myalgia, unspecified site
CPT/HCPCS: 71045; 93005; 99283

== ENCOUNTER 2019-07-12 06:12 | Emergency (ER) | payer MEDICAID ==
[~2019-07-12] VITALS: Ht 167.6 cm; Wt 104.0 kg
[2019-07-12] MEDS ORDERED: SODIUM CHLORIDE 0.9% 1,000 ML IV ONE (06:37)
[2019-07-12 07:00] LABS: BASOPHILS % 0.3 % (0.0-2.0); HEMOGLOBIN. 16.5 g/dL (14.0-18.0); LYMPHOCYTES % 7.5 % (20.0-50.0); MEAN CORPUSCULAR HEMOGLOBIN 32.3 pg (28.0-32.0); MEAN CORPUSCULAR VOLUME 94.3 fL (80.0-94.0); MEAN PLATELET VOLUME 9.2 fl (7.4-10.4); MONOCYTES % 7.4 % (2.0-8.0); NEUTROPHILS % 84.8 % (40.0-76.0); PLATELET 243 x1000/uL (130-400); RED CELL DISTRIBUTION WIDTH 14.1 % (11.6-14.6)
[2019-07-12 07:03] LABS: CHLORIDE 106 mEq/L (98-107)
[2019-07-12] MEDS ORDERED: LORAZEPAM 2MG/ML CPJ IV ONE ×3 (07:15→10:30)
[2019-07-12] MEDS ORDERED: IOHEXOL-350 100 ML BOTTLE ONE (11:31)
[2019-07-12 12:00] VITALS: BP 140/86
== END 2019-07-12 12:06 | disposition home or self-care (01) ==
LOC: ER 06:41
DX: R07.9 Chest pain, unspecified (principal); R11.0 Nausea; F14.10 Cocaine abuse, uncomplicated; F17.200 Nicotine dependence, unspecified, uncomplicated
CPT/HCPCS: 36415; 71045; 71275; 80053; 83880; 84484; 85025; 93005; 96374; 99285; J2060; J7030; Q9967

== ENCOUNTER 2019-07-12 18:43 | Emergency (ER) | payer MEDICAID ==
[~2019-07-12] VITALS: Ht 167.6 cm; Wt 109.0 kg
[2019-07-12] MEDS ORDERED: ONDANSETRON HCL 4MG/2ML INJ IV STA (22:31)
[2019-07-12] MEDS ORDERED: SODIUM CHLORIDE 0.9% 1,000 ML IV ONE (22:31)
[2019-07-12] MEDS ORDERED: ASPIRIN 81MG TABLET PO ONE (22:45)
[2019-07-12 23:01] LABS: BASOPHILS % 0.5 % (0.0-2.0); EOSINOPHILS % 0.4 % (0.0-5.0); HEMATOCRIT. 46.4 % (42.0-52.0); LYMPHOCYTES % 20.8 % (20.0-50.0); MEAN CORPUSCULAR HEMOGLOBIN 32.8 pg (28.0-32.0); MEAN CORPUSCULAR VOLUME 94.8 fL (80.0-94.0); MEAN PLATELET VOLUME 9.7 fl (7.4-10.4); MONOCYTES % 9.5 % (2.0-8.0); NEUTROPHILS % 68.8 % (40.0-76.0); PLATELET 250 x1000/uL (130-400); RED BLOOD CELL COUNT 4.89 mill/uL (4.7-6.1); RED CELL DISTRIBUTION WIDTH 14.2 % (11.6-14.6)
[2019-07-12 23:08] LABS: CHLORIDE 103 mEq/L (98-107)
[2019-07-12 23:12] LABS: ETHANOL BLOOD < 10 mg/dL
[2019-07-12 23:16] LABS: CREATINE KINASE 233 IU/L (39-308)
[2019-07-12 23:19] LABS: CREATINE KINASE MB FRACTION 2.1 ng/mL (0.5-3.6)
[2019-07-12] MEDS ORDERED: LORAZEPAM 2MG/ML CPJ IV ONE (23:45)
[2019-07-13 00:20] LABS: *BARBITURATES SCREEN URINE NEGATIVE (NEGATIVE); *BENZODIAZEPINES SCREEN URINE NEGATIVE (NEGATIVE)
[2019-07-13 00:21] LABS: *COCAINE SCREEN URINE NEGATIVE (NEGATIVE); CANNABINOID URINE SCREEN NEGATIVE (NEGATIVE); METHADONE URINE SCREEN NEGATIVE (NEGATIVE); OPIATES URINE SCREEN NEGATIVE (NEGATIVE); PHENCYCLIDINE URINE SCREEN NEGATIVE (NEGATIVE)
[2019-07-13 00:22] LABS: *AMPHETAMINES SCREEN URINE PRESUMTIVE POSITIVE (NEGATIVE)
[2019-07-13 05:02] VITALS: BP 117/74
== END 2019-07-13 05:04 | disposition home or self-care (01) ==
LOC: ER 18:55
DX: T43.621A Poisoning by amphetamines, accidental (unintentional), initial encounter (principal); R07.89 Other chest pain; I10 Essential (primary) hypertension; F17.210 Nicotine dependence, cigarettes, uncomplicated; Y92.018 Other place in single-family (private) house as the place of occurrence of the external cause
CPT/HCPCS: 36415; 71045; 80053; 80305; 80320; 82550; 82553; 83690; 83880; 84443; 84484; 85025; 93005; 96374; 96375; 99285; J2060; J2405; J7030; Z7610; G0480

== ENCOUNTER 2019-07-24 03:58 | Emergency (ER) | payer MEDICAID ==
[~2019-07-24] VITALS: Ht 167.6 cm; Wt 113.0 kg
[2019-07-24] MEDS ORDERED: LORAZEPAM 2MG/ML CPJ IV ONE ×3 (04:45→07:00)
[2019-07-24] MEDS ORDERED: SODIUM CHLORIDE 0.9% 1,000 ML IV ONE ×3 (04:45→08:16)
[2019-07-24] MEDS ORDERED: HYDROCODONE/ACETAMINOPHEN 5/325MG TABLET PO ONE (04:45)
[2019-07-24 06:53] LABS: CLARITY URINE CLEAR (CLEAR); COLOR URINE YELLOW (YELLOW); KETONES URINE TRACE (NEGATIVE); LEUKOCYTE ESTERASE URINE NEGATIVE (NEGATIVE); NITRITE URINE NEGATIVE (NEGATIVE); OCCULT BLOOD URINE TRACE (NEGATIVE); PH URINE 6.5 (4.5-8.0); PROTEIN URINE TRACE (NEGATIVE); SPECIFIC GRAVITY URINE 1.019 (1.005-1.030); UROBILINOGEN URINE 0.2 E.U./dL (0.2-1.0)
[2019-07-24] MEDS ORDERED: HALOPERIDOL LACTATE 5MG/ML VIAL IM ONE (07:15)
[2019-07-24 07:16] LABS: *AMPHETAMINES SCREEN URINE PRESUMTIVE POSITIVE (NEGATIVE); *BARBITURATES SCREEN URINE NEGATIVE (NEGATIVE); *BENZODIAZEPINES SCREEN URINE NEGATIVE (NEGATIVE)
[2019-07-24 07:17] LABS: *COCAINE SCREEN URINE NEGATIVE (NEGATIVE); CANNABINOID URINE SCREEN NEGATIVE (NEGATIVE); METHADONE URINE SCREEN NEGATIVE (NEGATIVE); OPIATES URINE SCREEN NEGATIVE (NEGATIVE); PHENCYCLIDINE URINE SCREEN NEGATIVE (NEGATIVE)
[2019-07-24 09:14] VITALS: BP 136/92
== END 2019-07-24 09:16 | disposition home or self-care (01) ==
LOC: ER 03:58
DX: S30.810A Abrasion of lower back and pelvis, initial encounter (principal); F15.10 Other stimulant abuse, uncomplicated; X58.XXXA Exposure to other specified factors, initial encounter; Y93.89 Activity, other specified; Y92.480 Sidewalk as the place of occurrence of the external cause
CPT/HCPCS: 72100; 80305; 81003; 93005; 96372; 96374; 96376; 99285; J1630; J2060; J7030

== ENCOUNTER 2019-07-26 06:11 | Emergency (ER) | payer MEDICAID ==
[~2019-07-26] VITALS: Ht 167.6 cm; Wt 109.0 kg
[2019-07-26] MEDS ORDERED: SODIUM CHLORIDE 0.9% 1,000 ML IV ONE ×2 (06:43→07:40)
[2019-07-26] MEDS ORDERED: LORAZEPAM 2MG/ML CPJ IV ONE ×2 (06:45→07:15)
[2019-07-26 07:04] LABS: BASOPHILS % 0.4 % (0.0-2.0); EOSINOPHILS % 0.1 % (0.0-5.0); HEMATOCRIT. 48.1 % (42.0-52.0); HEMOGLOBIN. 16.3 g/dL (14.0-18.0); MEAN CORPUSCULAR HEMOGLOBIN 32.4 pg (28.0-32.0); MEAN CORPUSCULAR VOLUME 95.4 fL (80.0-94.0); MEAN PLATELET VOLUME 8.7 fl (7.4-10.4); MONOCYTES % 8.1 % (2.0-8.0); NEUTROPHILS % 69.4 % (40.0-76.0); PLATELET 244 x1000/uL (130-400); RED BLOOD CELL COUNT 5.04 mill/uL (4.7-6.1); RED CELL DISTRIBUTION WIDTH 14.1 % (11.6-14.6)
[2019-07-26 07:15] LABS: CHLORIDE 103 mEq/L (98-107)
[2019-07-26 07:19] LABS: ETHANOL BLOOD 73 mg/dL
[2019-07-26 09:03] LABS: *AMPHETAMINES SCREEN URINE PRESUMTIVE POSITIVE (NEGATIVE); *BENZODIAZEPINES SCREEN URINE NEGATIVE (NEGATIVE); *COCAINE SCREEN URINE NEGATIVE (NEGATIVE)
[2019-07-26 09:04] LABS: CANNABINOID URINE SCREEN NEGATIVE (NEGATIVE); METHADONE URINE SCREEN NEGATIVE (NEGATIVE); OPIATES URINE SCREEN NEGATIVE (NEGATIVE); PHENCYCLIDINE URINE SCREEN NEGATIVE (NEGATIVE)
[2019-07-26 09:05] LABS: *BARBITURATES SCREEN URINE NEGATIVE (NEGATIVE)
[2019-07-26 12:54] VITALS: BP 141/99
== END 2019-07-26 12:59 | disposition home or self-care (01) ==
LOC: ER 06:11
DX: R00.2 Palpitations (principal); M54.5 Low back pain; F15.10 Other stimulant abuse, uncomplicated; I10 Essential (primary) hypertension
CPT/HCPCS: 36415; 71045; 72100; 80053; 80305; 80320; 83880; 84484; 85025; 93005; 96374; 99285; J2060; J7030; G0480

== ENCOUNTER 2019-07-28 05:57 | Emergency (ER) | payer MEDICAID ==
[~2019-07-28] VITALS: Ht 167.6 cm; Wt 109.0 kg
[2019-07-28] MEDS ORDERED: ASPIRIN 81MG TABLET PO ONE (06:45)
[2019-07-28 07:34] LABS: BASOPHILS % 0.4 % (0.0-2.0); HEMATOCRIT. 46.2 % (42.0-52.0); LYMPHOCYTES % 17.5 % (20.0-50.0); MEAN CORPUSCULAR HEMOGLOBIN 32.7 pg (28.0-32.0); MEAN CORPUSCULAR VOLUME 94.6 fL (80.0-94.0); MEAN PLATELET VOLUME 8.9 fl (7.4-10.4); MONOCYTES % 7.2 % (2.0-8.0); NEUTROPHILS % 74.9 % (40.0-76.0); PLATELET 228 x1000/uL (130-400); RED BLOOD CELL COUNT 4.89 mill/uL (4.7-6.1); RED CELL DISTRIBUTION WIDTH 14.3 % (11.6-14.6)
[2019-07-28 07:38] LABS: PARTIAL THROMBOPLASTIN TIME 29.2 sec (23.4-31.0); PROTHROMBIN TIME 10.5 sec (9.6-11.0)
[2019-07-28 07:39] LABS: CHLORIDE 102 mEq/L (98-107)
[2019-07-28] MEDS ORDERED: POTASSIUM CHLORIDE 20MEQ TABLET SR PO NR (08:00)
[2019-07-28] MEDS ORDERED: SODIUM CHLORIDE 0.9% 1,000 ML IV ONE (08:30)
[2019-07-28 09:30] VITALS: BP 154/108
== END 2019-07-28 10:10 | disposition home or self-care (01) ==
LOC: ER 05:57
DX: R07.89 Other chest pain (principal); F15.10 Other stimulant abuse, uncomplicated; E87.6 Hypokalemia; Z98.890 Other specified postprocedural states
CPT/HCPCS: 36415; 71045; 80053; 83880; 84484; 85025; 85610; 85730; 93005; 99285; J7030; Z7610

== ENCOUNTER 2019-08-03 10:09 | Emergency (ER) | payer MEDICAID ==
[~2019-08-03] VITALS: Ht 167.6 cm; Wt 118.0 kg
[2019-08-03 10:49] VITALS: BP 178/127
[2019-08-03] MEDS ORDERED: IBUPROFEN 600MG TABLET PO STA (14:51)
[2019-08-03 15:15] LABS: CHLORIDE 102 mEq/L (98-107)
[2019-08-03 15:17] LABS: BASOPHILS % 0.2 % (0.0-2.0); EOSINOPHILS % 0.1 % (0.0-5.0); HEMATOCRIT. 48.4 % (42.0-52.0); HEMOGLOBIN. 16.4 g/dL (14.0-18.0); LYMPHOCYTES % 14.5 % (20.0-50.0); MEAN CORPUSCULAR HEMOGLOBIN 32.3 pg (28.0-32.0); MEAN CORPUSCULAR VOLUME 95.2 fL (80.0-94.0); MEAN PLATELET VOLUME 8.8 fl (7.4-10.4); MONOCYTES % 9.8 % (2.0-8.0); NEUTROPHILS % 75.4 % (40.0-76.0); PLATELET 242 x1000/uL (130-400); RED BLOOD CELL COUNT 5.08 mill/uL (4.7-6.1); RED CELL DISTRIBUTION WIDTH 14.7 % (11.6-14.6)
[2019-08-03 15:18] LABS: ETHANOL BLOOD < 10 mg/dL
== END 2019-08-03 19:45 | disposition left against medical advice (07) ==
LOC: ER 10:24
DX: R07.89 Other chest pain (principal); I10 Essential (primary) hypertension
CPT/HCPCS: 36415; 80053; 80320; 83880; 84484; 85025; 93005; 99284; G0480

== ENCOUNTER 2019-08-11 06:48 | Emergency (ER) | payer MEDICAID ==
[~2019-08-11] VITALS: Ht 167.6 cm; Wt 109.0 kg
[2019-08-11] MEDS ORDERED: SODIUM CHLORIDE 0.9% 1,000 ML IV ONE ×2 (07:09→16:00)
[2019-08-11] MEDS ORDERED: LORAZEPAM 2MG/ML CPJ IV ONE ×3 (07:15→16:00)
[2019-08-11 07:26] LABS: BASOPHILS % 0.5 % (0.0-2.0); HEMATOCRIT. 48.8 % (42.0-52.0); LYMPHOCYTES % 14.3 % (20.0-50.0); MEAN CORPUSCULAR HEMOGLOBIN 32.6 pg (28.0-32.0); MEAN PLATELET VOLUME 8.9 fl (7.4-10.4); MONOCYTES % 9.8 % (2.0-8.0); NEUTROPHILS % 75.4 % (40.0-76.0); PLATELET 238 x1000/uL (130-400); RED BLOOD CELL COUNT 5.19 mill/uL (4.7-6.1); RED CELL DISTRIBUTION WIDTH 14.2 % (11.6-14.6)
[2019-08-11 07:31] LABS: CHLORIDE 103 mEq/L (98-107)
[2019-08-11 07:36] LABS: ETHANOL BLOOD < 10 mg/dL
[2019-08-11 10:38] LABS: *AMPHETAMINES SCREEN URINE PRESUMTIVE POSITIVE (NEGATIVE); *BARBITURATES SCREEN URINE NEGATIVE (NEGATIVE)
[2019-08-11 10:39] LABS: *BENZODIAZEPINES SCREEN URINE NEGATIVE (NEGATIVE); *COCAINE SCREEN URINE NEGATIVE (NEGATIVE); METHADONE URINE SCREEN NEGATIVE (NEGATIVE); OPIATES URINE SCREEN NEGATIVE (NEGATIVE); PHENCYCLIDINE URINE SCREEN NEGATIVE (NEGATIVE)
[2019-08-11 10:40] LABS: CANNABINOID URINE SCREEN NEGATIVE (NEGATIVE)
[2019-08-11] MEDS ORDERED: ASPIRIN 81MG TABLET PO ONE (16:00)
[2019-08-11] MEDS ORDERED: NITROGLYCERIN 0.4MG TABLET SL SL PRN (16:00)
[2019-08-11] MEDS ORDERED: KETOROLAC 30MG/ML VIAL IV PRN (17:15)
[2019-08-11] MEDS ORDERED: LORAZEPAM 2MG/ML CPJ IV PRN (17:15)
[2019-08-11 18:00] VITALS: BP 136/97
[2019-08-12] MEDS ORDERED: ASPIRIN 81MG TABLET PO SCH (09:00)
== END 2019-08-11 19:55 | disposition left against medical advice (07) ==
LOC: ER 06:48 → CANRESERV 19:52 → ENRESERV 19:52 → ER 19:55 → CANBEDREQ 08-12 20:08
DX: R00.2 Palpitations (principal); R00.0 Tachycardia, unspecified; I10 Essential (primary) hypertension; F15.10 Other stimulant abuse, uncomplicated; Z98.890 Other specified postprocedural states
CPT/HCPCS: 36415; 71045; 80053; 80305; 80320; 84443; 84484; 85025; 93005; 96374; 96376; 99285; J2060; J7030; Z7610; G0480

== ENCOUNTER 2019-08-12 10:38 | Emergency (ER) | payer MEDICAID ==
[~2019-08-12] VITALS: Ht 167.6 cm; Wt 108.0 kg
[2019-08-12] MEDS ORDERED: LORAZEPAM 1MG TABLET PO ONE (11:15)
[2019-08-12 11:31] LABS: CLARITY URINE CLEAR (CLEAR); COLOR URINE YELLOW (YELLOW); KETONES URINE NEGATIVE (NEGATIVE); LEUKOCYTE ESTERASE URINE NEGATIVE (NEGATIVE); NITRITE URINE NEGATIVE (NEGATIVE); OCCULT BLOOD URINE NEGATIVE (NEGATIVE); PROTEIN URINE NEGATIVE (NEGATIVE); SPECIFIC GRAVITY URINE 1.015 (1.005-1.030)
[2019-08-12 11:52] LABS: BASOPHILS % 0.4 % (0.0-2.0); EOSINOPHILS % 0.2 % (0.0-5.0); HEMATOCRIT. 45.4 % (42.0-52.0); HEMOGLOBIN. 15.5 g/dL (14.0-18.0); LYMPHOCYTES % 17.7 % (20.0-50.0); MEAN CORPUSCULAR HEMOGLOBIN 32.4 pg (28.0-32.0); MEAN CORPUSCULAR VOLUME 94.9 fL (80.0-94.0); MEAN PLATELET VOLUME 8.7 fl (7.4-10.4); MONOCYTES % 11.1 % (2.0-8.0); NEUTROPHILS % 70.6 % (40.0-76.0); PLATELET 189 x1000/uL (130-400); RED BLOOD CELL COUNT 4.79 mill/uL (4.7-6.1); RED CELL DISTRIBUTION WIDTH 14.3 % (11.6-14.6)
[2019-08-12 12:08] LABS: *AMPHETAMINES SCREEN URINE PRESUMTIVE POSITIVE (NEGATIVE); *BARBITURATES SCREEN URINE NEGATIVE (NEGATIVE); *BENZODIAZEPINES SCREEN URINE NEGATIVE (NEGATIVE); *COCAINE SCREEN URINE NEGATIVE (NEGATIVE)
[2019-08-12 12:09] LABS: CANNABINOID URINE SCREEN NEGATIVE (NEGATIVE); METHADONE URINE SCREEN NEGATIVE (NEGATIVE); OPIATES URINE SCREEN NEGATIVE (NEGATIVE); PHENCYCLIDINE URINE SCREEN NEGATIVE (NEGATIVE)
[2019-08-12 13:00] LABS: CHLORIDE 103 mEq/L (98-107)
[2019-08-12 13:04] LABS: ETHANOL BLOOD < 10 mg/dL
[2019-08-12 14:30] VITALS: BP 136/97
== END 2019-08-12 14:34 | disposition home or self-care (01) ==
LOC: ER 10:38
DX: R07.89 Other chest pain (principal); T43.621A Poisoning by amphetamines, accidental (unintentional), initial encounter; Y92.89 Other specified places as the place of occurrence of the external cause
CPT/HCPCS: 36415; 71045; 80053; 80305; 80320; 81003; 84484; 85025; 93005; 99285; G0480

== ENCOUNTER 2019-08-18 13:19 | Emergency (ER) | payer MEDICAID ==
[~2019-08-18] VITALS: Ht 167.6 cm; Wt 109.0 kg
[2019-08-18 13:26] VITALS: BP 162/113
== END 2019-08-18 16:50 | disposition home or self-care (01) ==
LOC: ER 13:28
DX: R07.89 Other chest pain (principal); F15.10 Other stimulant abuse, uncomplicated; Z98.890 Other specified postprocedural states
CPT/HCPCS: 71045; 93005; 99283

== ENCOUNTER 2019-09-03 05:21 | Emergency (ER) | payer MEDICAID, OTHER ==
[~2019-09-03] VITALS: Ht 172.7 cm; Wt 100.0 kg
[2019-09-03] MEDS ORDERED: ACETAMINOPHEN 325MG TABLET PO STA (06:17)
[2019-09-03 06:51] LABS: CHLORIDE 103 mEq/L (98-107)
[2019-09-03 06:52] LABS: PROTHROMBIN TIME 10.7 sec (9.6-11.0)
[2019-09-03 06:54] LABS: BASOPHILS % 0.3 % (0.0-2.0); EOSINOPHILS % 0.1 % (0.0-5.0); HEMATOCRIT. 43.9 % (42.0-52.0); HEMOGLOBIN. 14.9 g/dL (14.0-18.0); LYMPHOCYTES % 19.7 % (20.0-50.0); MEAN CORPUSCULAR HEMOGLOBIN 32.5 pg (28.0-32.0); MEAN CORPUSCULAR VOLUME 95.7 fL (80.0-94.0); MEAN PLATELET VOLUME 9.3 fl (7.4-10.4); MONOCYTES % 11.3 % (2.0-8.0); NEUTROPHILS % 68.6 % (40.0-76.0); PLATELET 199 x1000/uL (130-400); RED BLOOD CELL COUNT 4.58 mill/uL (4.7-6.1); RED CELL DISTRIBUTION WIDTH 14.5 % (11.6-14.6)
[2019-09-03 08:00] VITALS: BP 168/106
== END 2019-09-03 08:45 | disposition home or self-care (01) ==
LOC: ER 05:21
DX: R07.89 Other chest pain (principal); R51 Headache; F15.20 Other stimulant dependence, uncomplicated
CPT/HCPCS: 36415; 71045; 80053; 84484; 85025; 93005; 99285

== ENCOUNTER 2019-09-29 06:41 | Emergency (ER) | payer MEDICAID ==
[~2019-09-29] VITALS: Ht 167.6 cm; Wt 107.1 kg
[2019-09-29] MEDS ORDERED: SODIUM CHLORIDE 0.9% 1,000 ML IV ONE (07:22)
[2019-09-29] MEDS ORDERED: LORAZEPAM 2MG/ML CPJ IV ONE (07:30)
[2019-09-29 07:56] LABS: BASOPHILS % 0.4 % (0.0-2.0); EOSINOPHILS % 0.3 % (0.0-5.0); HEMATOCRIT. 47.3 % (42.0-52.0); HEMOGLOBIN. 16.2 g/dL (14.0-18.0); LYMPHOCYTES % 19.9 % (20.0-50.0); MEAN CORPUSCULAR HEMOGLOBIN 32.7 pg (28.0-32.0); MEAN CORPUSCULAR VOLUME 95.5 fL (80.0-94.0); MEAN PLATELET VOLUME 9.3 fl (7.4-10.4); MONOCYTES % 11.5 % (2.0-8.0); NEUTROPHILS % 67.9 % (40.0-76.0); PLATELET 245 x1000/uL (130-400); RED BLOOD CELL COUNT 4.95 mill/uL (4.7-6.1); RED CELL DISTRIBUTION WIDTH 14.6 % (11.6-14.6)
[2019-09-29 08:05] LABS: CHLORIDE 101 mEq/L (98-107)
[2019-09-29 08:09] LABS: ETHANOL BLOOD < 10 mg/dL
[2019-09-29] MEDS ORDERED: POTASSIUM CHLORIDE 20MEQ TABLET SR PO SCH (08:30)
[2019-09-29] MEDS ORDERED: KETOROLAC 30MG/ML VIAL IV SCH (09:00)
[2019-09-29 10:07] LABS: *AMPHETAMINES SCREEN URINE PRESUMTIVE POSITIVE (NEGATIVE); *BARBITURATES SCREEN URINE NEGATIVE (NEGATIVE); *BENZODIAZEPINES SCREEN URINE NEGATIVE (NEGATIVE); *COCAINE SCREEN URINE NEGATIVE (NEGATIVE)
[2019-09-29 10:08] LABS: CANNABINOID URINE SCREEN NEGATIVE (NEGATIVE); METHADONE URINE SCREEN NEGATIVE (NEGATIVE); PHENCYCLIDINE URINE SCREEN NEGATIVE (NEGATIVE)
[2019-09-29 10:10] LABS: OPIATES URINE SCREEN NEGATIVE (NEGATIVE)
[2019-09-29 12:05] VITALS: BP 116/82
== END 2019-09-29 12:06 | disposition home or self-care (01) ==
LOC: ER 06:41
DX: R07.89 Other chest pain (principal); R06.02 Shortness of breath; F15.10 Other stimulant abuse, uncomplicated; Z98.890 Other specified postprocedural states
CPT/HCPCS: 36415; 71045; 80053; 80305; 80320; 84484; 85025; 93005; 96374; 96375; 99285; J1885; J2060; J7030; G0480

== ENCOUNTER 2019-09-30 03:45 | Emergency (ER) | payer MEDICAID ==
[~2019-09-30] VITALS: Ht 167.6 cm; Wt 109.0 kg
[2019-09-30] MEDS ORDERED: SODIUM CHLORIDE 0.9% 1,000 ML IV ONE (04:02)
[2019-09-30] MEDS ORDERED: LORAZEPAM 2MG/ML CPJ IV ONE (04:15)
[2019-09-30 05:39] VITALS: BP 138/80
== END 2019-09-30 05:40 | disposition home or self-care (01) ==
LOC: ER 03:45
DX: T43.621A Poisoning by amphetamines, accidental (unintentional), initial encounter (principal); R07.89 Other chest pain; F15.188 Other stimulant abuse with other stimulant-induced disorder; R03.0 Elevated blood-pressure reading, without diagnosis of hypertension; Y92.89 Other specified places as the place of occurrence of the external cause
CPT/HCPCS: 71045; 93005; 96374; 99283; J2060; J7030

== ENCOUNTER 2019-10-16 08:47 | Emergency (ER) | payer MEDICAID ==
[~2019-10-16] VITALS: Ht 172.7 cm; Wt 100.0 kg
[2019-10-16] MEDS ORDERED: SODIUM CHLORIDE 0.9% 1,000 ML IV ONE (09:08)
[2019-10-16] MEDS ORDERED: KETOROLAC 30MG/ML VIAL IV STA (09:08)
[2019-10-16] MEDS ORDERED: LORAZEPAM 2MG/ML CPJ IV ONE (09:15)
[2019-10-16 09:45] LABS: BASOPHILS % 0.2 % (0.0-2.0); HEMATOCRIT. 42.5 % (42.0-52.0); HEMOGLOBIN. 14.6 g/dL (14.0-18.0); MEAN CORPUSCULAR HEMOGLOBIN 32.9 pg (28.0-32.0); MEAN CORPUSCULAR VOLUME 95.9 fL (80.0-94.0); MEAN PLATELET VOLUME 9.2 fl (7.4-10.4); MONOCYTES % 7.2 % (2.0-8.0); NEUTROPHILS % 78.6 % (40.0-76.0); PLATELET 208 x1000/uL (130-400); RED BLOOD CELL COUNT 4.44 mill/uL (4.7-6.1); RED CELL DISTRIBUTION WIDTH 14.5 % (11.6-14.6)
[2019-10-16 09:51] LABS: CHLORIDE 105 mEq/L (98-107)
[2019-10-16 09:53] LABS: INR 0.9; PROTHROMBIN TIME 10.3 sec (9.6-11.0)
[2019-10-16 11:18] LABS: CLARITY URINE CLEAR (CLEAR); COLOR URINE YELLOW (YELLOW); KETONES URINE TRACE (NEGATIVE); LEUKOCYTE ESTERASE URINE NEGATIVE (NEGATIVE); NITRITE URINE NEGATIVE (NEGATIVE); OCCULT BLOOD URINE 1+ (NEGATIVE); PROTEIN URINE TRACE (NEGATIVE); UROBILINOGEN URINE 0.2 E.U./dL (0.2-1.0)
[2019-10-16 11:23] VITALS: BP 142/99
== END 2019-10-16 11:48 | disposition home or self-care (01) ==
LOC: ER 08:47
DX: R10.84 Generalized abdominal pain (principal); F15.10 Other stimulant abuse, uncomplicated
CPT/HCPCS: 36415; 74176; 80053; 81003; 83690; 85025; 85610; 96374; 96375; 99284; J1885; J2060; J7030

== ENCOUNTER 2019-10-18 21:04 | Emergency (ER) | payer MEDICAID ==
[~2019-10-18] VITALS: Ht 177.8 cm; Wt 100.0 kg
[2019-10-18 23:29] LABS: BASOPHILS % 0.4 % (0.0-2.0); EOSINOPHILS % 0.2 % (0.0-5.0); HEMATOCRIT. 42.9 % (42.0-52.0); HEMOGLOBIN. 14.7 g/dL (14.0-18.0); LYMPHOCYTES % 26.5 % (20.0-50.0); MEAN CORPUSCULAR HEMOGLOBIN 32.7 pg (28.0-32.0); MEAN CORPUSCULAR VOLUME 95.7 fL (80.0-94.0); MEAN PLATELET VOLUME 9.4 fl (7.4-10.4); MONOCYTES % 7.8 % (2.0-8.0); NEUTROPHILS % 65.1 % (40.0-76.0); PLATELET 209 x1000/uL (130-400); RED BLOOD CELL COUNT 4.48 mill/uL (4.7-6.1); RED CELL DISTRIBUTION WIDTH 14.7 % (11.6-14.6)
[2019-10-18 23:30] LABS: CHLORIDE 106 mEq/L (98-107)
[2019-10-19 03:32] VITALS: BP 127/70
== END 2019-10-19 03:38 | disposition home or self-care (01) ==
LOC: ER 21:04
DX: R07.89 Other chest pain (principal); F15.10 Other stimulant abuse, uncomplicated
CPT/HCPCS: 36415; 71045; 80053; 84484; 85025; 99285

== ENCOUNTER 2019-10-26 06:15 | Emergency (ER) | payer MEDICAID ==
[~2019-10-26] VITALS: Ht 167.6 cm; Wt 100.0 kg
[2019-10-26] MEDS ORDERED: LORAZEPAM 1MG TABLET PO ONE (07:15)
[2019-10-26 07:28] LABS: BASOPHILS % 0.6 % (0.0-2.0); EOSINOPHILS % 0.1 % (0.0-5.0); HEMATOCRIT. 46.4 % (42.0-52.0); HEMOGLOBIN. 15.9 g/dL (14.0-18.0); LYMPHOCYTES % 19.1 % (20.0-50.0); MEAN CORPUSCULAR HEMOGLOBIN 32.8 pg (28.0-32.0); MEAN CORPUSCULAR VOLUME 95.8 fL (80.0-94.0); MEAN PLATELET VOLUME 9.1 fl (7.4-10.4); MONOCYTES % 9.5 % (2.0-8.0); NEUTROPHILS % 70.7 % (40.0-76.0); PLATELET 244 x1000/uL (130-400); RED BLOOD CELL COUNT 4.84 mill/uL (4.7-6.1); RED CELL DISTRIBUTION WIDTH 14.7 % (11.6-14.6)
[2019-10-26 07:36] LABS: CHLORIDE 106 mEq/L (98-107)
[2019-10-26 07:40] LABS: ETHANOL BLOOD 12 mg/dL
[2019-10-26 07:44] LABS: CREATINE KINASE 190 IU/L (39-308)
[2019-10-26 07:57] LABS: CLARITY URINE CLEAR (CLEAR); COLOR URINE YELLOW (YELLOW); KETONES URINE TRACE (NEGATIVE); LEUKOCYTE ESTERASE URINE NEGATIVE (NEGATIVE); NITRITE URINE NEGATIVE (NEGATIVE); OCCULT BLOOD URINE TRACE (NEGATIVE); PROTEIN URINE 1+ (NEGATIVE); SPECIFIC GRAVITY URINE 1.024 (1.005-1.030); UROBILINOGEN URINE 0.2 E.U./dL (0.2-1.0)
[2019-10-26 08:06] LABS: *AMPHETAMINES SCREEN URINE PRESUMTIVE POSITIVE (NEGATIVE); *BARBITURATES SCREEN URINE NEGATIVE (NEGATIVE); *BENZODIAZEPINES SCREEN URINE NEGATIVE (NEGATIVE); *COCAINE SCREEN URINE NEGATIVE (NEGATIVE); METHADONE URINE SCREEN NEGATIVE (NEGATIVE)
[2019-10-26 08:07] LABS: CANNABINOID URINE SCREEN NEGATIVE (NEGATIVE); OPIATES URINE SCREEN NEGATIVE (NEGATIVE); PHENCYCLIDINE URINE SCREEN NEGATIVE (NEGATIVE)
[2019-10-26 10:33] VITALS: BP 200/110
== END 2019-10-26 11:23 | disposition home or self-care (01) ==
LOC: ER 06:15
DX: T43.621A Poisoning by amphetamines, accidental (unintentional), initial encounter (principal); R07.89 Other chest pain; R10.33 Periumbilical pain; Y92.018 Other place in single-family (private) house as the place of occurrence of the external cause
CPT/HCPCS: 36415; 71045; 74176; 80053; 80305; 80320; 81003; 82550; 84484; 85025; 93005; 99285; G0480

== ENCOUNTER 2019-10-29 05:50 | Emergency (ER) | payer MEDICAID, OTHER ==
[~2019-10-29] VITALS: Ht 170.2 cm; Wt 97.0 kg
[2019-10-29 05:54] VITALS: BP 144/101
== END 2019-10-29 12:01 | disposition left against medical advice (07) ==
LOC: ER 05:50
DX: R07.89 Other chest pain (principal); Z53.21 Procedure and treatment not carried out due to patient leaving prior to being seen by health care provider

== ENCOUNTER 2019-10-31 10:20 | Inpatient (IN) | payer MEDICAID, OTHER ==
[~2019-10-31] VITALS: Ht 167.6 cm; Wt 108.4 kg
[2019-10-31] MEDS ORDERED: SODIUM CHLORIDE 0.9% 1,000 ML IV ONE ×2 (10:37→11:30)
[2019-10-31] MEDS ORDERED: LORAZEPAM 2MG/ML CPJ IV ONE ×3 (11:00→12:15)
[2019-10-31 11:29] LABS: BASOPHILS % 0.4 % (0.0-2.0); HEMATOCRIT. 44.6 % (42.0-52.0); HEMOGLOBIN. 15.2 g/dL (14.0-18.0); LYMPHOCYTES % 15.6 % (20.0-50.0); MEAN CORPUSCULAR HEMOGLOBIN 32.5 pg (28.0-32.0); MEAN CORPUSCULAR VOLUME 95.2 fL (80.0-94.0); MEAN PLATELET VOLUME 9.3 fl (7.4-10.4); MONOCYTES % 7.4 % (2.0-8.0); NEUTROPHILS % 76.6 % (40.0-76.0); PLATELET 224 x1000/uL (130-400); RED BLOOD CELL COUNT 4.69 mill/uL (4.7-6.1); RED CELL DISTRIBUTION WIDTH 14.5 % (11.6-14.6)
[2019-10-31 11:39] LABS: CHLORIDE 106 mEq/L (98-107)
[2019-10-31 12:49] LABS: *AMPHETAMINES SCREEN URINE PRESUMTIVE POSITIVE (NEGATIVE); *BARBITURATES SCREEN URINE NEGATIVE (NEGATIVE); *COCAINE SCREEN URINE NEGATIVE (NEGATIVE)
[2019-10-31 12:50] LABS: *BENZODIAZEPINES SCREEN URINE NEGATIVE (NEGATIVE); CANNABINOID URINE SCREEN NEGATIVE (NEGATIVE); METHADONE URINE SCREEN NEGATIVE (NEGATIVE); OPIATES URINE SCREEN NEGATIVE (NEGATIVE); PHENCYCLIDINE URINE SCREEN NEGATIVE (NEGATIVE)
[2019-10-31] MEDS ORDERED: CLONIDINE 0.1MG TABLET PO PRN (16:15)
[2019-10-31] MEDS ORDERED: ACETAMINOPHEN 325MG TABLET PO PRN (16:15)
[2019-10-31] MEDS ORDERED: ONDANSETRON HCL 4MG/2ML INJ IV PRN (16:15)
[2019-10-31] MEDS: LOSARTAN POTASSIUM 100 MG TABLET PO SCH (16:15)
[2019-10-31] MEDS: LORAZEPAM 2MG/ML CPJ IV PRN (17:52)
[2019-10-31] MEDS ORDERED: ZOLPIDEM TARTRATE 5MG TABLET PO PRN (21:00)
[2019-10-31] MEDS: ENOXAPARIN 30MG/0.3ML SYR SUBCUT SCH (21:32)
[2019-10-31 22:20] VITALS: BP 146/91
[2019-11-01] VITALS: BP 131/89
[2019-11-01 04:00] VITALS: BP 143/93
[2019-11-01 08:00] VITALS: BP 111/88
[2019-11-01] MEDS: LOSARTAN POTASSIUM 100 MG TABLET PO SCH (08:48)
[2019-11-01] MEDS: ENOXAPARIN 30MG/0.3ML SYR SUBCUT SCH (08:49)
[2019-11-01] MEDS: LORAZEPAM 2MG/ML CPJ IV PRN (10:07)
[2019-11-01 12:00] VITALS: BP 107/61
[2019-11-01 14:45] VITALS: BP 107/61
== END 2019-11-01 15:20 | disposition home or self-care (01) | DRG 203 ==
LOC: ER 10:20 → 5WST 15:23 → ENRESERV 21:20
PROVIDERS: ADMIT Internal Medicine; ATTEND Internal Medicine
DX: R07.89 Other chest pain (principal); E87.2 Acidosis; E66.9 Obesity, unspecified; F10.10 Alcohol abuse, uncomplicated; F15.90 Other stimulant use, unspecified, uncomplicated; I10 Essential (primary) hypertension; I16.0 Hypertensive urgency; F14.90 Cocaine use, unspecified, uncomplicated; Z71.89 Other specified counseling; Z71.51 Drug abuse counseling and surveillance of drug abuser; Z68.38 Body mass index [BMI] 38.0-38.9, adult
CPT/HCPCS: 36415; 71045; 80053; 80305; 83605; 83880; 84484; 85025; 93005; 93306; 99285; J1650; J2060; J2405; J7030

== ENCOUNTER 2019-11-07 02:20 | Emergency (ER) | payer MEDICAID ==
[~2019-11-07] VITALS: Ht 177.8 cm; Wt 102.0 kg
[2019-11-07 02:22] VITALS: BP 130/90
[2019-11-07] MEDS ORDERED: ASPIRIN 81MG TABLET PO ONE (02:45)
[2019-11-07 03:02] LABS: CHLORIDE 110 mEq/L (98-107)
[2019-11-07 03:07] LABS: BASOPHILS % 0.5 % (0.0-2.0); EOSINOPHILS % 0.3 % (0.0-5.0); LYMPHOCYTES % 15.6 % (20.0-50.0); MEAN CORPUSCULAR HEMOGLOBIN 32.4 pg (28.0-32.0); MEAN CORPUSCULAR VOLUME 94.9 fL (80.0-94.0); MEAN PLATELET VOLUME 9.2 fl (7.4-10.4); MONOCYTES % 6.8 % (2.0-8.0); NEUTROPHILS % 76.8 % (40.0-76.0); PLATELET 238 x1000/uL (130-400); RED BLOOD CELL COUNT 4.63 mill/uL (4.7-6.1); RED CELL DISTRIBUTION WIDTH 14.4 % (11.6-14.6)
[2019-11-07] MEDS ORDERED: IBUPROFEN 600MG TABLET PO ONE (04:00)
== END 2019-11-07 04:00 | disposition home or self-care (01) ==
LOC: ER 02:20
DX: R07.89 Other chest pain (principal); F15.10 Other stimulant abuse, uncomplicated; F14.10 Cocaine abuse, uncomplicated
CPT/HCPCS: 36415; 71045; 80053; 83880; 84484; 85025; 93005; 99285; Z7610

== ENCOUNTER 2019-11-09 10:00 | Emergency (ER) | payer MEDICAID, OTHER ==
[~2019-11-09] VITALS: Ht 167.6 cm; Wt 104.0 kg
[2019-11-09] MEDS ORDERED: MAGNESIUM/ALUMINUM HYDROXIDE/SIMETHICONE 30ML UDC PO STA (10:21)
[2019-11-09] MEDS ORDERED: IBUPROFEN 600MG TABLET PO STA (10:21)
[2019-11-09] MEDS ORDERED: LORAZEPAM 2MG/ML CPJ IV ONE (10:30)
[2019-11-09] MEDS ORDERED: SODIUM CHLORIDE 0.9% 1,000 ML IV ONE ×2 (10:30→13:15)
[2019-11-09 11:06] LABS: BASOPHILS % 0.3 % (0.0-2.0); HEMATOCRIT. 43.9 % (42.0-52.0); HEMOGLOBIN. 15.1 g/dL (14.0-18.0); LYMPHOCYTES % 13.3 % (20.0-50.0); MEAN CORPUSCULAR HEMOGLOBIN 32.5 pg (28.0-32.0); MEAN CORPUSCULAR VOLUME 94.7 fL (80.0-94.0); MEAN PLATELET VOLUME 9.4 fl (7.4-10.4); MONOCYTES % 6.9 % (2.0-8.0); NEUTROPHILS % 79.5 % (40.0-76.0); PLATELET 238 x1000/uL (130-400); RED BLOOD CELL COUNT 4.64 mill/uL (4.7-6.1); RED CELL DISTRIBUTION WIDTH 15.1 % (11.6-14.6)
[2019-11-09 11:14] LABS: CHLORIDE 106 mEq/L (98-107)
[2019-11-09 11:23] LABS: ETHANOL BLOOD 17 mg/dL
[2019-11-09 12:05] LABS: CLARITY URINE CLEAR (CLEAR); COLOR URINE YELLOW (YELLOW); KETONES URINE 1+ (NEGATIVE); LEUKOCYTE ESTERASE URINE NEGATIVE (NEGATIVE); NITRITE URINE NEGATIVE (NEGATIVE); OCCULT BLOOD URINE NEGATIVE (NEGATIVE); PROTEIN URINE TRACE (NEGATIVE); SPECIFIC GRAVITY URINE 1.026 (1.005-1.030)
[2019-11-09 12:18] LABS: *AMPHETAMINES SCREEN URINE PRESUMTIVE POSITIVE (NEGATIVE); *BARBITURATES SCREEN URINE NEGATIVE (NEGATIVE); *BENZODIAZEPINES SCREEN URINE NEGATIVE (NEGATIVE); *COCAINE SCREEN URINE NEGATIVE (NEGATIVE); METHADONE URINE SCREEN NEGATIVE (NEGATIVE)
[2019-11-09 12:19] LABS: CANNABINOID URINE SCREEN NEGATIVE (NEGATIVE); OPIATES URINE SCREEN NEGATIVE (NEGATIVE); PHENCYCLIDINE URINE SCREEN NEGATIVE (NEGATIVE)
[2019-11-09] MEDS ORDERED: LORAZEPAM 1MG TABLET PO ONE (12:45)
[2019-11-09] MEDS ORDERED: ACETAMINOPHEN 325MG TABLET PO ONE (12:45)
[2019-11-09 14:24] VITALS: BP 179/103
== END 2019-11-09 14:24 | disposition home or self-care (01) ==
LOC: ER 10:05
DX: T43.621A Poisoning by amphetamines, accidental (unintentional), initial encounter (principal); T40.991A Poisoning by other psychodysleptics [hallucinogens], accidental (unintentional), initial encounter; R10.33 Periumbilical pain; Y92.018 Other place in single-family (private) house as the place of occurrence of the external cause
CPT/HCPCS: 36415; 74176; 80053; 80305; 80320; 81003; 83690; 85025; 93005; 96374; 99285; J2060; J7030; G0480

== ENCOUNTER 2019-11-09 21:48 | Emergency (ER) | payer MEDICAID ==
[~2019-11-09] VITALS: Ht 167.6 cm; Wt 99.0 kg
[2019-11-09] MEDS ORDERED: ACETAMINOPHEN 650MG/20.3ML UDC PO ONE (22:00)
[2019-11-09] MEDS ORDERED: SODIUM CHLORIDE 0.9% 1,000 ML IV ONE (22:30)
[2019-11-09] MEDS ORDERED: CLONIDINE 0.2MG TABLET PO ONE (22:30)
[2019-11-09 22:56] LABS: BASOPHILS % 0.5 % (0.0-2.0); EOSINOPHILS % 0.1 % (0.0-5.0); HEMATOCRIT. 42.3 % (42.0-52.0); HEMOGLOBIN. 14.6 g/dL (14.0-18.0); LYMPHOCYTES % 21.1 % (20.0-50.0); MEAN CORPUSCULAR HEMOGLOBIN 32.8 pg (28.0-32.0); MONOCYTES % 12.2 % (2.0-8.0); NEUTROPHILS % 66.1 % (40.0-76.0); PLATELET 206 x1000/uL (130-400); RED BLOOD CELL COUNT 4.45 mill/uL (4.7-6.1); RED CELL DISTRIBUTION WIDTH 14.6 % (11.6-14.6)
[2019-11-09 23:02] LABS: CHLORIDE 105 mEq/L (98-107)
[2019-11-09 23:32] LABS: *AMPHETAMINES SCREEN URINE PRESUMTIVE POSITIVE (NEGATIVE); *BARBITURATES SCREEN URINE NEGATIVE (NEGATIVE); *BENZODIAZEPINES SCREEN URINE NEGATIVE (NEGATIVE); *COCAINE SCREEN URINE NEGATIVE (NEGATIVE); METHADONE URINE SCREEN NEGATIVE (NEGATIVE); OPIATES URINE SCREEN NEGATIVE (NEGATIVE); PHENCYCLIDINE URINE SCREEN NEGATIVE (NEGATIVE)
[2019-11-09 23:33] LABS: CANNABINOID URINE SCREEN NEGATIVE (NEGATIVE)
[2019-11-10] MEDS ORDERED: AMLODIPINE 10MG TABLET PO ONE (02:15)
[2019-11-10] MEDS ORDERED: LABETALOL 5MG/ML SYR 20 MG/4 ML SYRINGE IV ONE (02:15)
[2019-11-10 06:31] VITALS: BP 146/90
== END 2019-11-10 06:32 | disposition home or self-care (01) ==
LOC: ER 21:48
DX: R51 Headache (principal); F15.10 Other stimulant abuse, uncomplicated; I10 Essential (primary) hypertension
CPT/HCPCS: 36415; 70450; 71045; 80053; 80305; 83880; 84484; 85025; 93005; 96374; 99285; J3490; J7030

== ENCOUNTER 2019-11-17 11:07 | Inpatient (IN) | payer MEDICAID, OTHER ==
[~2019-11-17] VITALS: Ht 167.6 cm; Wt 108.9 kg
[2019-11-17] MEDS ORDERED: MORPHINE SULFATE 4 MG/ML CPJ (NOT FOR IM USE) IV STA (11:16)
[2019-11-17] MEDS ORDERED: SODIUM CHLORIDE 0.9% 1,000 ML IV ONE (11:16)
[2019-11-17 11:55] LABS: BASOPHILS % 0.4 % (0.0-2.0); HEMATOCRIT. 44.4 % (42.0-52.0); LYMPHOCYTES % 11.7 % (20.0-50.0); MEAN CORPUSCULAR HEMOGLOBIN 31.9 pg (28.0-32.0); MEAN CORPUSCULAR VOLUME 94.9 fL (80.0-94.0); MEAN PLATELET VOLUME 9.6 fl (7.4-10.4); MONOCYTES % 10.8 % (2.0-8.0); NEUTROPHILS % 77.1 % (40.0-76.0); PLATELET 214 x1000/uL (130-400); RED BLOOD CELL COUNT 4.68 mill/uL (4.7-6.1); RED CELL DISTRIBUTION WIDTH 15.1 % (11.6-14.6)
[2019-11-17 12:01] LABS: CHLORIDE 104 mEq/L (98-107)
[2019-11-17] MEDS ORDERED: MORPHINE SULFATE 4 MG/ML CPJ (NOT FOR IM USE) IV ONE (12:15)
[2019-11-17] MEDS ORDERED: IOHEXOL-300 100 ML BOTTLE ONE (13:10)
[2019-11-17 14:48] LABS: PROTHROMBIN TIME 10.9 sec (9.6-11.0)
[2019-11-17 17:02] LABS: CLARITY URINE CLEAR (CLEAR); COLOR URINE YELLOW (YELLOW); KETONES URINE NEGATIVE (NEGATIVE); LEUKOCYTE ESTERASE URINE NEGATIVE (NEGATIVE); NITRITE URINE NEGATIVE (NEGATIVE); OCCULT BLOOD URINE NEGATIVE (NEGATIVE); PH URINE 6.5 (4.5-8.0); PROTEIN URINE NEGATIVE (NEGATIVE); SPECIFIC GRAVITY URINE 1.036 (1.005-1.030); UROBILINOGEN URINE 0.2 E.U./dL (0.2-1.0)
[2019-11-17] MEDS ORDERED: ACETAMINOPHEN 325MG TABLET PO ONE (17:15)
[2019-11-17] MEDS ORDERED: SODIUM CHLORIDE 0.9% 100 ML IV ONE (17:15)
[2019-11-17] MEDS ORDERED: CEFTRIAXONE 1 G PREMIX 50 ML IV ONE (17:30)
[2019-11-17] MEDS ORDERED: METRONIDAZOLE 500 MG PREMIX 100 ML IV ONE (17:30)
[2019-11-17 17:35] LABS: *AMPHETAMINES SCREEN URINE PRESUMTIVE POSITIVE (NEGATIVE); *BARBITURATES SCREEN URINE NEGATIVE (NEGATIVE)
[2019-11-17 17:36] LABS: *BENZODIAZEPINES SCREEN URINE NEGATIVE (NEGATIVE); *COCAINE SCREEN URINE NEGATIVE (NEGATIVE); OPIATES URINE SCREEN PRESUMTIVE POSITIVE (NEGATIVE)
[2019-11-17 17:37] LABS: CANNABINOID URINE SCREEN NEGATIVE (NEGATIVE); PHENCYCLIDINE URINE SCREEN NEGATIVE (NEGATIVE)
[2019-11-17 17:44] LABS: METHADONE URINE SCREEN NEGATIVE (NEGATIVE)
[2019-11-17 20:40] VITALS: BP 162/110
[2019-11-17 21:49] VITALS: BP 162/110
[2019-11-17] MEDS ORDERED: IOHEXOL-350 100 ML BOTTLE ONE (21:59)
[2019-11-17] MEDS ORDERED: MORPHINE SULFATE 2 MG/ML CPJ (NOT FOR IM USE) IV PRN (22:45)
[2019-11-17] MEDS ORDERED: ONDANSETRON HCL 4MG/2ML INJ IV PRN (22:45)
[2019-11-18] VITALS: BP 138/91
[2019-11-18] MEDS: AMLODIPINE 10MG TABLET PO SCH ×2 (00:21→08:51)
[2019-11-18 04:00] VITALS: BP 117/91
[2019-11-18 06:15] LABS: HEMATOCRIT 42.7 % (42.0-52.0); HEMOGLOBIN 14.4 g/dL (14.0-18.0); MEAN CORPUSCULAR HEMOGLOBIN 32.1 pg (28.0-32.0); PLATELET 194 x1000/uL (130-400); RED BLOOD CELL COUNT 4.49 mill/uL (4.7-6.1); RED CELL DISTRIBUTION WIDTH 14.7 % (11.6-14.6)
[2019-11-18 06:36] LABS: CHLORIDE 102 mEq/L (98-107)
[2019-11-18 06:44] LABS: AMYLASE 49 IU/L (25-115)
[2019-11-18] MEDS ORDERED: OMEPRAZOLE 20MG CAPSULE EXTENDED RELEASE PO SCH (06:45)
[2019-11-18 06:49] LABS: LDL CHOLESTEROL 140 mg/dL (5-100)
[2019-11-18 06:50] LABS: HDL CHOLESTEROL 50 mg/dL (40-59)
[2019-11-18 08:00] VITALS: BP 152/92
[2019-11-18] MEDS ORDERED: POTASSIUM CHLORIDE 20MEQ TABLET SR PO NR (08:00)
[2019-11-18] MEDS ORDERED: POTASSIUM CHLORIDE 20MEQ TABLET SR PO ONE (08:30)
[2019-11-18 12:00] VITALS: BP 134/87
[2019-11-18] MEDS ORDERED: OMEP20CA14 MT (13:38)
[2019-11-18] MEDS ORDERED: AMLO10TA80 PO (13:38)
== END 2019-11-18 13:30 | disposition home or self-care (01) | DRG 243 ==
LOC: ER 11:36 → EDBEDREQ 17:32 → EDBEDREQTM 17:32 → ENRESERV 18:57 → 5WST 21:10
PROVIDERS: ADMIT Internal Medicine; ATTEND Internal Medicine
DX: K21.9 Gastro-esophageal reflux disease without esophagitis (principal); K52.9 Noninfective gastroenteritis and colitis, unspecified; I11.0 Hypertensive heart disease with heart failure; I50.22 Chronic systolic (congestive) heart failure; F10.10 Alcohol abuse, uncomplicated; F15.10 Other stimulant abuse, uncomplicated; R74.0 Nonspecific elevation of levels of transaminase and lactic acid dehydrogenase [LDH]; I42.9 Cardiomyopathy, unspecified; Z71.41 Alcohol abuse counseling and surveillance of alcoholic; Z71.51 Drug abuse counseling and surveillance of drug abuser
CPT/HCPCS: 36415; 71045; 74174; 74177; 80048; 80053; 80061; 80305; 81003; 82150; 83605; 83880; 84484; 85025; 85027; 86850; 86900; 93005; 99291; J0696; J2270; J3490; J7030; J7050; Q9967

== ENCOUNTER 2019-11-20 11:37 | Emergency (ER) | payer MEDICAID, OTHER ==
[~2019-11-20] VITALS: Ht 167.6 cm; Wt 109.0 kg
[~2019-11-20 11:37] MED LIST changes: +AMLO10TA80 PO; -NIFE10CA PO; +OMEP20CA14 MT
[2019-11-20] MEDS ORDERED: SODIUM CHLORIDE 0.9% 1,000 ML IV ONE (11:51)
[2019-11-20] MEDS ORDERED: LORAZEPAM 2MG/ML CPJ IV ONE (12:00)
[2019-11-20 12:20] LABS: CHLORIDE 110 mEq/L (98-107)
[2019-11-20 12:24] LABS: ETHANOL BLOOD 105 mg/dL
[2019-11-20 12:25] LABS: *COCAINE SCREEN URINE NEGATIVE (NEGATIVE)
[2019-11-20 12:28] LABS: METHADONE URINE SCREEN NEGATIVE (NEGATIVE); OPIATES URINE SCREEN NEGATIVE (NEGATIVE)
[2019-11-20 12:29] LABS: *AMPHETAMINES SCREEN URINE PRESUMTIVE POSITIVE (NEGATIVE); *BARBITURATES SCREEN URINE NEGATIVE (NEGATIVE); *BENZODIAZEPINES SCREEN URINE NEGATIVE (NEGATIVE); CANNABINOID URINE SCREEN NEGATIVE (NEGATIVE); PHENCYCLIDINE URINE SCREEN NEGATIVE (NEGATIVE)
[2019-11-20 12:35] LABS: BASOPHILS % 0.4 % (0.0-2.0); HEMATOCRIT. 43.9 % (42.0-52.0); LYMPHOCYTES % 14.3 % (20.0-50.0); MEAN CORPUSCULAR HEMOGLOBIN 32.4 pg (28.0-32.0); MEAN CORPUSCULAR VOLUME 94.7 fL (80.0-94.0); MEAN PLATELET VOLUME 9.3 fl (7.4-10.4); MONOCYTES % 7.1 % (2.0-8.0); NEUTROPHILS % 78.2 % (40.0-76.0); PLATELET 228 x1000/uL (130-400); RED BLOOD CELL COUNT 4.64 mill/uL (4.7-6.1); RED CELL DISTRIBUTION WIDTH 14.9 % (11.6-14.6)
[2019-11-20 16:11] VITALS: BP 149/99
[2019-11-20] MEDS ORDERED: ACETAMINOPHEN 325MG TABLET PO ONE (16:15)
== END 2019-11-20 16:25 | disposition home or self-care (01) ==
LOC: ER 11:37
DX: T43.621A Poisoning by amphetamines, accidental (unintentional), initial encounter (principal); F10.229 Alcohol dependence with intoxication, unspecified; R07.89 Other chest pain; F12.10 Cannabis abuse, uncomplicated; F16.10 Hallucinogen abuse, uncomplicated; Y90.5 Blood alcohol level of 100-119 mg/100 ml; Y92.488 Other paved roadways as the place of occurrence of the external cause
CPT/HCPCS: 36415; 71045; 80053; 80305; 80320; 84484; 85025; 93005; 96374; 99285; J2060; J7030; G0480

== ENCOUNTER 2019-11-23 07:42 | Emergency (ER) | payer MEDICAID, OTHER ==
[~2019-11-23] VITALS: Ht 167.6 cm; Wt 80.0 kg
[2019-11-23 08:16] LABS: BASOPHILS % 0.5 % (0.0-2.0); EOSINOPHILS % 0.1 % (0.0-5.0); HEMATOCRIT. 45.3 % (42.0-52.0); HEMOGLOBIN. 15.6 g/dL (14.0-18.0); LYMPHOCYTES % 19.5 % (20.0-50.0); MEAN CORPUSCULAR HEMOGLOBIN 32.4 pg (28.0-32.0); MEAN CORPUSCULAR VOLUME 94.2 fL (80.0-94.0); MEAN PLATELET VOLUME 8.8 fl (7.4-10.4); MONOCYTES % 7.5 % (2.0-8.0); NEUTROPHILS % 72.4 % (40.0-76.0); PLATELET 228 x1000/uL (130-400); RED BLOOD CELL COUNT 4.81 mill/uL (4.7-6.1); RED CELL DISTRIBUTION WIDTH 14.8 % (11.6-14.6)
[2019-11-23 08:26] LABS: CHLORIDE 105 mEq/L (98-107)
[2019-11-23 08:30] LABS: ETHANOL BLOOD 120 mg/dL
[2019-11-23] MEDS ORDERED: SODIUM CHLORIDE 0.9% 1,000 ML IV ONE (09:05)
[2019-11-23 11:01] VITALS: BP 139/93
== END 2019-11-23 11:16 | disposition home or self-care (01) ==
LOC: ER 07:42
DX: R07.89 Other chest pain (principal); F15.10 Other stimulant abuse, uncomplicated; Z87.891 Personal history of nicotine dependence
CPT/HCPCS: 36415; 71045; 80053; 80320; 83880; 84484; 85025; 85379; 93005; 99285; G0480

== ENCOUNTER 2019-11-29 06:58 | Emergency (ER) | payer MEDICAID ==
[~2019-11-29] VITALS: Ht 165.1 cm; Wt 103.0 kg
[2019-11-29] MEDS ORDERED: SODIUM CHLORIDE 0.9% 1,000 ML IV ONE ×2 (07:03→08:13)
[2019-11-29] MEDS ORDERED: LORAZEPAM 2MG/ML CPJ IV ONE ×2 (07:15→08:15)
[2019-11-29 08:48] VITALS: BP 145/106
== END 2019-11-29 09:15 | disposition home or self-care (01) ==
LOC: ER 07:06
DX: R07.89 Other chest pain (principal); F15.10 Other stimulant abuse, uncomplicated; Z79.899 Other long term (current) drug therapy
CPT/HCPCS: 71045; 93005; 96374; 96376; 99284; J2060; J7030

== ENCOUNTER 2019-11-29 09:55 | Emergency (ER) | payer MEDICAID ==
[~2019-11-29] VITALS: Ht 167.6 cm; Wt 100.0 kg
[2019-11-29] MEDS ORDERED: SODIUM CHLORIDE 0.9% 1,000 ML IV ONE (10:16)
[2019-11-29] MEDS ORDERED: KETOROLAC 30MG/ML VIAL IV STA (10:16)
[2019-11-29 10:33] LABS: BASOPHILS % 0.6 % (0.0-2.0); HEMOGLOBIN. 15.1 g/dL (14.0-18.0); LYMPHOCYTES % 17.1 % (20.0-50.0); MEAN CORPUSCULAR HEMOGLOBIN 31.8 pg (28.0-32.0); MEAN CORPUSCULAR VOLUME 94.9 fL (80.0-94.0); MEAN PLATELET VOLUME 8.9 fl (7.4-10.4); MONOCYTES % 8.1 % (2.0-8.0); NEUTROPHILS % 74.2 % (40.0-76.0); PLATELET 220 x1000/uL (130-400); RED BLOOD CELL COUNT 4.75 mill/uL (4.7-6.1); RED CELL DISTRIBUTION WIDTH 14.9 % (11.6-14.6)
[2019-11-29 10:39] LABS: CHLORIDE 109 mEq/L (98-107)
[2019-11-29 11:30] VITALS: BP 160/100
== END 2019-11-29 11:30 | disposition home or self-care (01) ==
LOC: ER 09:55
DX: R10.84 Generalized abdominal pain (principal); F17.200 Nicotine dependence, unspecified, uncomplicated; F15.90 Other stimulant use, unspecified, uncomplicated
CPT/HCPCS: 36415; 74176; 80053; 83690; 85025; 96374; 99284; J1885; J7030

== ENCOUNTER 2019-12-09 07:08 | Emergency (ER) | payer MEDICAID ==
[~2019-12-09] VITALS: Ht 175.3 cm; Wt 100.0 kg
[2019-12-09] MEDS ORDERED: SODIUM CHLORIDE 0.9% 1,000 ML IV ONE (07:22)
[2019-12-09] MEDS ORDERED: LORAZEPAM 2MG/ML CPJ IV ONE (07:30)
[2019-12-09 07:43] LABS: BASOPHILS % 0.2 % (0.0-2.0); HEMATOCRIT. 45.2 % (42.0-52.0); HEMOGLOBIN. 15.1 g/dL (14.0-18.0); LYMPHOCYTES % 12.7 % (20.0-50.0); MEAN CORPUSCULAR HEMOGLOBIN 32.1 pg (28.0-32.0); MEAN CORPUSCULAR VOLUME 96.1 fL (80.0-94.0); MONOCYTES % 9.4 % (2.0-8.0); NEUTROPHILS % 77.7 % (40.0-76.0); PLATELET 210 x1000/uL (130-400); RED BLOOD CELL COUNT 4.71 mill/uL (4.7-6.1); RED CELL DISTRIBUTION WIDTH 15.4 % (11.6-14.6)
[2019-12-09 07:48] LABS: CHLORIDE 107 mEq/L (98-107)
[2019-12-09] MEDS ORDERED: IOHEXOL-350 100 ML BOTTLE ONE (09:29)
[2019-12-09 09:47] VITALS: BP 144/105
== END 2019-12-09 09:54 | disposition home or self-care (01) ==
LOC: ER 07:08
DX: T43.621A Poisoning by amphetamines, accidental (unintentional), initial encounter (principal); R07.89 Other chest pain; F15.188 Other stimulant abuse with other stimulant-induced disorder; Y92.89 Other specified places as the place of occurrence of the external cause; Z86.19 Personal history of other infectious and parasitic diseases; K76.0 Fatty (change of) liver, not elsewhere classified
CPT/HCPCS: 36415; 71045; 71275; 80053; 83880; 84484; 85025; 93005; 96361; 96374; 99285; J2060; J7030; Q9967

== ENCOUNTER 2019-12-13 05:42 | Emergency (ER) | payer MEDICAID ==
[~2019-12-13] VITALS: Ht 172.7 cm; Wt 100.0 kg
[2019-12-13] MEDS ORDERED: METOPROLOL TARTRATE 5MG/5ML VIAL IV SCH (07:15)
[2019-12-13] MEDS ORDERED: METOPROLOL TARTRATE 25MG TABLET PO ONE (07:15)
[2019-12-13 07:39] LABS: BASOPHILS % 0.3 % (0.0-2.0); HEMATOCRIT. 45.1 % (42.0-52.0); HEMOGLOBIN. 15.2 g/dL (14.0-18.0); LYMPHOCYTES % 10.8 % (20.0-50.0); MEAN CORPUSCULAR VOLUME 94.6 fL (80.0-94.0); MEAN PLATELET VOLUME 9.7 fl (7.4-10.4); NEUTROPHILS % 82.9 % (40.0-76.0); PLATELET 215 x1000/uL (130-400); RED BLOOD CELL COUNT 4.76 mill/uL (4.7-6.1); RED CELL DISTRIBUTION WIDTH 14.8 % (11.6-14.6)
[2019-12-13 07:45] LABS: CHLORIDE 109 mEq/L (98-107)
[2019-12-13 07:48] LABS: ETHANOL BLOOD 33 mg/dL
[2019-12-13 12:39] VITALS: BP 174/107
== END 2019-12-13 12:40 | disposition home or self-care (01) ==
LOC: ER 06:02
DX: T43.621A Poisoning by amphetamines, accidental (unintentional), initial encounter (principal); R00.0 Tachycardia, unspecified; Y92.89 Other specified places as the place of occurrence of the external cause
CPT/HCPCS: 36415; 80048; 80320; 84484; 85025; 93005; 99285; G0480

== ENCOUNTER 2019-12-15 05:51 | Emergency (ER) | payer MEDICAID ==
[~2019-12-15] VITALS: Ht 175.3 cm; Wt 110.0 kg
[2019-12-15] MEDS ORDERED: SODIUM CHLORIDE 0.9% 1,000 ML IV ONE ×2 (06:28→09:37)
[2019-12-15] MEDS ORDERED: LORAZEPAM 2MG/ML CPJ IV ONE ×2 (06:30→09:45)
[2019-12-15 09:03] LABS: BASOPHILS % 0.2 % (0.0-2.0); HEMATOCRIT. 42.1 % (42.0-52.0); HEMOGLOBIN. 14.2 g/dL (14.0-18.0); LYMPHOCYTES % 15.8 % (20.0-50.0); MEAN CORPUSCULAR HEMOGLOBIN 32.2 pg (28.0-32.0); MEAN CORPUSCULAR VOLUME 95.2 fL (80.0-94.0); PLATELET 194 x1000/uL (130-400); RED BLOOD CELL COUNT 4.42 mill/uL (4.7-6.1); RED CELL DISTRIBUTION WIDTH 14.9 % (11.6-14.6)
[2019-12-15 09:08] LABS: CHLORIDE 108 mEq/L (98-107)
[2019-12-15 12:25] LABS: *AMPHETAMINES SCREEN URINE PRESUMTIVE POSITIVE (NEGATIVE); *BARBITURATES SCREEN URINE NEGATIVE (NEGATIVE); *BENZODIAZEPINES SCREEN URINE NEGATIVE (NEGATIVE); *COCAINE SCREEN URINE NEGATIVE (NEGATIVE)
[2019-12-15 12:26] VITALS: BP 145/88
[2019-12-15 12:27] LABS: CANNABINOID URINE SCREEN NEGATIVE (NEGATIVE); METHADONE URINE SCREEN NEGATIVE (NEGATIVE); OPIATES URINE SCREEN NEGATIVE (NEGATIVE); PHENCYCLIDINE URINE SCREEN NEGATIVE (NEGATIVE)
== END 2019-12-15 12:40 | disposition home or self-care (01) ==
LOC: ER 05:51
DX: R07.89 Other chest pain (principal); R00.0 Tachycardia, unspecified; F15.10 Other stimulant abuse, uncomplicated
CPT/HCPCS: 36415; 71045; 80053; 80305; 83880; 84484; 85025; 85379; 93005; 96361; 96374; 99285; J2060

== ENCOUNTER 2019-12-16 03:49 | Emergency (ER) | payer MEDICAID ==
[~2019-12-16] VITALS: Ht 177.8 cm; Wt 114.0 kg
[2019-12-16] MEDS ORDERED: ASPIRIN 325MG EC TABLET PO ONE (04:15)
[2019-12-16] MEDS ORDERED: KETOROLAC 30MG/ML VIAL IV ONE (04:15)
[2019-12-16 04:22] LABS: HEMATOCRIT 43.1 % (42.0-52.0); HEMOGLOBIN 14.7 g/dL (14.0-18.0); MEAN CORPUSCULAR HEMOGLOBIN 32.2 pg (28.0-32.0); MEAN CORPUSCULAR VOLUME 94.7 fL (80.0-94.0); PLATELET 198 x1000/uL (130-400); RED BLOOD CELL COUNT 4.55 mill/uL (4.7-6.1); RED CELL DISTRIBUTION WIDTH 14.9 % (11.6-14.6)
[2019-12-16 04:27] LABS: CHLORIDE 106 mEq/L (98-107)
[2019-12-16 05:45] VITALS: BP 144/7
== END 2019-12-16 06:14 | disposition home or self-care (01) ==
LOC: ER 03:49
DX: F15.10 Other stimulant abuse, uncomplicated (principal); G89.29 Other chronic pain; R07.89 Other chest pain
CPT/HCPCS: 36415; 80053; 84484; 85027; 93005; 96374; 99284; J1885

== ENCOUNTER 2019-12-19 04:29 | Emergency (ER) | payer MEDICAID ==
[~2019-12-19] VITALS: Ht 172.7 cm; Wt 90.0 kg
[2019-12-19] MEDS ORDERED: LORAZEPAM 2MG/ML CPJ IV ONE (06:45)
[2019-12-19 07:07] LABS: BASOPHILS % 0.5 % (0.0-2.0); HEMATOCRIT. 43.7 % (42.0-52.0); HEMOGLOBIN. 14.6 g/dL (14.0-18.0); MEAN CORPUSCULAR HEMOGLOBIN 31.7 pg (28.0-32.0); MEAN CORPUSCULAR VOLUME 94.6 fL (80.0-94.0); MONOCYTES % 7.2 % (2.0-8.0); NEUTROPHILS % 78.3 % (40.0-76.0); PLATELET 208 x1000/uL (130-400); RED BLOOD CELL COUNT 4.62 mill/uL (4.7-6.1); RED CELL DISTRIBUTION WIDTH 15.2 % (11.6-14.6)
[2019-12-19 07:10] LABS: CHLORIDE 108 mEq/L (98-107)
[2019-12-19 09:15] VITALS: BP 150/78
== END 2019-12-19 09:15 | disposition home or self-care (01) ==
LOC: ER 04:29
DX: F15.10 Other stimulant abuse, uncomplicated (principal); R07.89 Other chest pain; R00.0 Tachycardia, unspecified; Z86.19 Personal history of other infectious and parasitic diseases
CPT/HCPCS: 36415; 71045; 80053; 83880; 84484; 85025; 93005; 96374; 99285; J2060

== ENCOUNTER 2020-02-08 05:50 | Inpatient (IN) | payer MEDICAID ==
[~2020-02-08] VITALS: Ht 167.6 cm; Wt 108.9 kg
[2020-02-08] MEDS ORDERED: SODIUM CHLORIDE 0.9% 1,000 ML IV ONE ×2 (06:45→07:00)
[2020-02-08] MEDS ORDERED: LORAZEPAM 2MG/ML CPJ IV ONE (07:00)
[2020-02-08 08:00] VITALS: BP 146/99
[2020-02-08 08:14] LABS: BASOPHILS % 0.2 % (0.0-2.0); HEMOGLOBIN. 15.1 g/dL (14.0-18.0); LYMPHOCYTES % 9.2 % (20.0-50.0); MEAN CORPUSCULAR HEMOGLOBIN 32.3 pg (28.0-32.0); MEAN CORPUSCULAR VOLUME 96.1 fL (80.0-94.0); MEAN PLATELET VOLUME 9.7 fl (7.4-10.4); MONOCYTES % 4.1 % (2.0-8.0); NEUTROPHILS % 86.5 % (40.0-76.0); PLATELET 235 x1000/uL (130-400); RED BLOOD CELL COUNT 4.68 mill/uL (4.7-6.1); RED CELL DISTRIBUTION WIDTH 14.9 % (11.6-14.6)
[2020-02-08 08:28] LABS: CHLORIDE 106 mEq/L (98-107)
[2020-02-08 08:34] LABS: ETHANOL BLOOD 53 mg/dL
[2020-02-08 08:38] LABS: CREATINE KINASE 179 IU/L (39-308)
[2020-02-08 08:41] LABS: CLARITY URINE CLEAR (CLEAR); COLOR URINE YELLOW (YELLOW); KETONES URINE TRACE (NEGATIVE); LEUKOCYTE ESTERASE URINE NEGATIVE (NEGATIVE); NITRITE URINE NEGATIVE (NEGATIVE); OCCULT BLOOD URINE NEGATIVE (NEGATIVE); PH URINE 5.5 (4.5-8.0); PROTEIN URINE 1+ (NEGATIVE); UROBILINOGEN URINE 0.2 E.U./dL (0.2-1.0)
[2020-02-08] MEDS ORDERED: ONDANSETRON HCL 4MG/2ML INJ IV PRN (12:30)
[2020-02-08] MEDS ORDERED: ACETAMINOPHEN 325MG TABLET PO PRN (12:30)
[2020-02-08] MEDS ORDERED: LORAZEPAM 2MG/ML CPJ IV PRN (12:30)
[2020-02-08] MEDS ORDERED: LOSARTAN POTASSIUM 100 MG TABLET PO SCH (12:30)
[2020-02-08] MEDS ORDERED: ENOXAPARIN 30MG/0.3ML SYR SUBCUT SCH (12:30)
[2020-02-08 14:00] VITALS: BP 146/99
[2020-02-08 14:18] LABS: *AMPHETAMINES SCREEN URINE PRESUMTIVE POSITIVE (NEGATIVE); *BARBITURATES SCREEN URINE NEGATIVE (NEGATIVE); *COCAINE SCREEN URINE NEGATIVE (NEGATIVE); METHADONE URINE SCREEN NEGATIVE (NEGATIVE)
[2020-02-08 14:19] LABS: *BENZODIAZEPINES SCREEN URINE NEGATIVE (NEGATIVE); CANNABINOID URINE SCREEN NEGATIVE (NEGATIVE); OPIATES URINE SCREEN NEGATIVE (NEGATIVE); PHENCYCLIDINE URINE SCREEN NEGATIVE (NEGATIVE)
== END 2020-02-08 16:23 | disposition left against medical advice (07) | DRG 812 ==
LOC: ER 05:50 → ENRESERV 11:37 → 8WST 12:58
PROVIDERS: ADMIT Internal Medicine Nephrology; ATTEND Internal Medicine Nephrology
DX: T43.621A Poisoning by amphetamines, accidental (unintentional), initial encounter (principal); R00.0 Tachycardia, unspecified; F15.10 Other stimulant abuse, uncomplicated; E66.9 Obesity, unspecified; I16.0 Hypertensive urgency; F99 Mental disorder, not otherwise specified; F10.129 Alcohol abuse with intoxication, unspecified; Y90.9 Presence of alcohol in blood, level not specified; I11.0 Hypertensive heart disease with heart failure; I50.22 Chronic systolic (congestive) heart failure; I42.9 Cardiomyopathy, unspecified; Z53.29 Procedure and treatment not carried out because of patient's decision for other reasons; Z72.89 Other problems related to lifestyle; Y92.89 Other specified places as the place of occurrence of the external cause; Z68.38 Body mass index [BMI] 38.0-38.9, adult; Z91.19 Patient's noncompliance with other medical treatment and regimen; Z71.51 Drug abuse counseling and surveillance of drug abuser; R07.89 Other chest pain; E87.2 Acidosis; E72.20 Disorder of urea cycle metabolism, unspecified
CPT/HCPCS: 36415; 71045; 80053; 80305; 80320; 81003; 82140; 82550; 82962; 83605; 84484; 85025; 93005; 99285; J1650; J2060; J7030; G0480

== ENCOUNTER 2020-03-04 09:56 | Emergency (ER) | payer MEDICAID ==
[~2020-03-04] VITALS: Ht 167.6 cm; Wt 109.0 kg
[2020-03-04] MEDS ORDERED: LORAZEPAM 2MG/ML CPJ IV STA (10:10)
[2020-03-04] MEDS ORDERED: SODIUM CHLORIDE 0.9% 1,000 ML IV ONE (10:15)
[2020-03-04 11:02] LABS: BASOPHILS % 0.3 % (0.0-2.0); CHLORIDE 104 mEq/L (98-107); HEMATOCRIT. 44.1 % (42.0-52.0); LYMPHOCYTES % 11.4 % (20.0-50.0); MEAN CORPUSCULAR HEMOGLOBIN 32.3 pg (28.0-32.0); MEAN CORPUSCULAR VOLUME 94.8 fL (80.0-94.0); MEAN PLATELET VOLUME 8.7 fl (7.4-10.4); MONOCYTES % 8.4 % (2.0-8.0); NEUTROPHILS % 79.9 % (40.0-76.0); PLATELET 220 x1000/uL (130-400); RED BLOOD CELL COUNT 4.66 mill/uL (4.7-6.1); RED CELL DISTRIBUTION WIDTH 13.9 % (11.6-14.6)
[2020-03-04 11:05] LABS: ETHANOL BLOOD 19 mg/dL
[2020-03-04] MEDS ORDERED: LORAZEPAM 2MG/ML CPJ IV ONE (11:30)
[2020-03-04 11:51] LABS: CLARITY URINE CLEAR (CLEAR); COLOR URINE YELLOW (YELLOW); KETONES URINE NEGATIVE (NEGATIVE); LEUKOCYTE ESTERASE URINE NEGATIVE (NEGATIVE); NITRITE URINE NEGATIVE (NEGATIVE); OCCULT BLOOD URINE NEGATIVE (NEGATIVE); PH URINE 7.5 (4.5-8.0); PROTEIN URINE NEGATIVE (NEGATIVE); UROBILINOGEN URINE 0.2 E.U./dL (0.2-1.0)
[2020-03-04 12:21] LABS: *AMPHETAMINES SCREEN URINE PRESUMTIVE POSITIVE (NEGATIVE)
[2020-03-04 12:22] LABS: *BARBITURATES SCREEN URINE NEGATIVE (NEGATIVE); *BENZODIAZEPINES SCREEN URINE NEGATIVE (NEGATIVE); *COCAINE SCREEN URINE NEGATIVE (NEGATIVE); METHADONE URINE SCREEN NEGATIVE (NEGATIVE); OPIATES URINE SCREEN NEGATIVE (NEGATIVE)
[2020-03-04 12:23] LABS: CANNABINOID URINE SCREEN NEGATIVE (NEGATIVE); PHENCYCLIDINE URINE SCREEN NEGATIVE (NEGATIVE)
[2020-03-04 13:06] VITALS: BP 155/101
== END 2020-03-04 13:19 | disposition home or self-care (01) ==
LOC: ER 09:56
DX: F15.10 Other stimulant abuse, uncomplicated (principal); Z98.890 Other specified postprocedural states
CPT/HCPCS: 36415; 80053; 80305; 80320; 81003; 82962; 85025; 93005; 96374; 96376; 99284; J2060; J7030; G0480

== ENCOUNTER 2020-03-23 06:08 | Emergency (ER) | payer MEDICAID ==
[~2020-03-23] VITALS: Ht 177.8 cm; Wt 113.0 kg
[2020-03-23] MEDS ORDERED: KETOROLAC 30MG/ML VIAL IV STA (06:28)
[2020-03-23] MEDS ORDERED: LORAZEPAM 2MG/ML CPJ IV ONE (06:45)
[2020-03-23] MEDS ORDERED: SODIUM CHLORIDE 0.9% 1,000 ML IV ONE (06:45)
[2020-03-23 06:56] LABS: BASOPHILS % 0.3 % (0.0-2.0); HEMOGLOBIN. 15.6 g/dL (14.0-18.0); LYMPHOCYTES % 17.9 % (20.0-50.0); MEAN CORPUSCULAR HEMOGLOBIN 31.9 pg (28.0-32.0); MEAN CORPUSCULAR VOLUME 94.4 fL (80.0-94.0); MEAN PLATELET VOLUME 8.9 fl (7.4-10.4); MONOCYTES % 8.1 % (2.0-8.0); NEUTROPHILS % 73.7 % (40.0-76.0); PLATELET 232 x1000/uL (130-400); RED BLOOD CELL COUNT 4.87 mill/uL (4.7-6.1); RED CELL DISTRIBUTION WIDTH 13.8 % (11.6-14.6)
[2020-03-23 07:01] LABS: CHLORIDE 104 mEq/L (98-107)
[2020-03-23 10:15] VITALS: BP 151/89
== END 2020-03-23 10:55 | disposition home or self-care (01) ==
LOC: ER 06:08
DX: T43.621A Poisoning by amphetamines, accidental (unintentional), initial encounter (principal); R07.89 Other chest pain; F15.10 Other stimulant abuse, uncomplicated; Y92.89 Other specified places as the place of occurrence of the external cause; R03.0 Elevated blood-pressure reading, without diagnosis of hypertension
CPT/HCPCS: 36415; 71045; 80053; 84484; 85025; 93005; 96361; 96374; 99285; J1885; J2060; J7030

== ENCOUNTER 2020-05-08 05:39 | Emergency (ER) | payer MEDICAID ==
[~2020-05-08] VITALS: Ht 170.2 cm; Wt 82.0 kg
[2020-05-08] MEDS ORDERED: KETOROLAC 60MG/2ML VIAL IM ONE (06:15)
[2020-05-08 06:33] LABS: BASOPHILS % 0.3 % (0.0-2.0); EOSINOPHILS % 1.2 % (0.0-5.0); HEMATOCRIT. 44.3 % (42.0-52.0); LYMPHOCYTES % 21.5 % (20.0-50.0); MEAN CORPUSCULAR HEMOGLOBIN 31.8 pg (28.0-32.0); MEAN PLATELET VOLUME 8.5 fl (7.4-10.4); MONOCYTES % 8.5 % (2.0-8.0); NEUTROPHILS % 68.5 % (40.0-76.0); PLATELET 244 x1000/uL (130-400); RED BLOOD CELL COUNT 4.72 mill/uL (4.7-6.1); RED CELL DISTRIBUTION WIDTH 14.5 % (11.6-14.6)
[2020-05-08 06:57] LABS: CHLORIDE 105 mEq/L (98-107)
[2020-05-08 07:06] LABS: ETHANOL BLOOD < 10 mg/dL
[2020-05-08 07:16] LABS: *BARBITURATES SCREEN URINE NEGATIVE (NEGATIVE)
[2020-05-08 07:17] LABS: *AMPHETAMINES SCREEN URINE NEGATIVE (NEGATIVE); *BENZODIAZEPINES SCREEN URINE NEGATIVE (NEGATIVE); *COCAINE SCREEN URINE NEGATIVE (NEGATIVE); METHADONE URINE SCREEN NEGATIVE (NEGATIVE); OPIATES URINE SCREEN NEGATIVE (NEGATIVE); PHENCYCLIDINE URINE SCREEN NEGATIVE (NEGATIVE)
[2020-05-08 07:18] LABS: CANNABINOID URINE SCREEN NEGATIVE (NEGATIVE)
[2020-05-08 07:30] VITALS: BP 160/54
== END 2020-05-08 07:31 | disposition home or self-care (01) ==
LOC: ER 05:39
DX: R07.89 Other chest pain (principal); I10 Essential (primary) hypertension; K21.9 Gastro-esophageal reflux disease without esophagitis; F15.10 Other stimulant abuse, uncomplicated; Z91.19 Patient's noncompliance with other medical treatment and regimen
CPT/HCPCS: 36415; 71045; 80053; 80305; 80320; 83880; 84484; 85025; 93005; 96372; 99285; J1885; G0480

== ENCOUNTER 2020-05-12 04:45 | Emergency (ER) | payer MEDICAID ==
[~2020-05-12] VITALS: Ht 167.6 cm; Wt 100.0 kg
[2020-05-12] MEDS ORDERED: SODIUM CHLORIDE 0.9% 1,000 ML IV ONE ×2 (07:45→11:00)
[2020-05-12 07:50] LABS: BASOPHILS % 0.5 % (0.0-2.0); EOSINOPHILS % 0.1 % (0.0-5.0); HEMATOCRIT. 44.7 % (42.0-52.0); HEMOGLOBIN. 14.8 g/dL (14.0-18.0); LYMPHOCYTES % 14.9 % (20.0-50.0); MEAN CORPUSCULAR VOLUME 93.3 fL (80.0-94.0); MONOCYTES % 7.6 % (2.0-8.0); NEUTROPHILS % 76.9 % (40.0-76.0); PLATELET 203 x1000/uL (130-400); RED BLOOD CELL COUNT 4.78 mill/uL (4.7-6.1); RED CELL DISTRIBUTION WIDTH 14.8 % (11.6-14.6)
[2020-05-12 07:56] LABS: CHLORIDE 104 mEq/L (98-107)
[2020-05-12] MEDS ORDERED: KETOROLAC 15MG/ML VIAL IV ONE (08:00)
[2020-05-12 08:06] LABS: ETHANOL BLOOD 14 mg/dL
[2020-05-12 10:11] LABS: *AMPHETAMINES SCREEN URINE PRESUMTIVE POSITIVE (NEGATIVE); *BARBITURATES SCREEN URINE NEGATIVE (NEGATIVE); *BENZODIAZEPINES SCREEN URINE NEGATIVE (NEGATIVE); *COCAINE SCREEN URINE NEGATIVE (NEGATIVE)
[2020-05-12 10:12] LABS: CANNABINOID URINE SCREEN NEGATIVE (NEGATIVE); METHADONE URINE SCREEN NEGATIVE (NEGATIVE); OPIATES URINE SCREEN NEGATIVE (NEGATIVE)
[2020-05-12 10:19] LABS: PHENCYCLIDINE URINE SCREEN NEGATIVE (NEGATIVE)
[2020-05-12] MEDS ORDERED: KETOROLAC 15MG/ML VIAL IV SCH (11:00)
[2020-05-12 12:43] VITALS: BP 154/87
== END 2020-05-12 12:53 | disposition home or self-care (01) ==
LOC: ER 04:45
DX: R07.89 Other chest pain (principal); F15.10 Other stimulant abuse, uncomplicated; I10 Essential (primary) hypertension; Z76.89 Persons encountering health services in other specified circumstances
CPT/HCPCS: 36415; 71045; 80053; 80305; 80320; 83880; 84484; 85025; 85379; 93005; 96361; 96374; 96376; 99285; J1885; J7030; G0480

== ENCOUNTER 2020-05-23 00:16 | Emergency (ER) | payer MEDICAID ==
[~2020-05-23] VITALS: Ht 170.2 cm; Wt 107.0 kg
[2020-05-23] MEDS ORDERED: IBUPROFEN 600MG TABLET PO ONE (01:00)
[2020-05-23] MEDS ORDERED: LORAZEPAM 1MG TABLET PO ONE (01:00)
[2020-05-23 01:17] LABS: BASOPHILS % 0.2 % (0.0-2.0); HEMATOCRIT. 45.2 % (42.0-52.0); HEMOGLOBIN. 15.7 g/dL (14.0-18.0); LYMPHOCYTES % 11.8 % (20.0-50.0); MEAN CORPUSCULAR HEMOGLOBIN 32.3 pg (28.0-32.0); MEAN CORPUSCULAR VOLUME 93.1 fL (80.0-94.0); MEAN PLATELET VOLUME 8.4 fl (7.4-10.4); MONOCYTES % 3.7 % (2.0-8.0); NEUTROPHILS % 84.3 % (40.0-76.0); PLATELET 235 x1000/uL (130-400); RED BLOOD CELL COUNT 4.86 mill/uL (4.7-6.1); RED CELL DISTRIBUTION WIDTH 14.9 % (11.6-14.6)
[2020-05-23 01:25] LABS: CHLORIDE 106 mEq/L (98-107)
[2020-05-23] MEDS ORDERED: KETOROLAC 30MG/ML VIAL IV NR (01:36)
[2020-05-23] MEDS ORDERED: SODIUM CHLORIDE 0.9% 1,000 ML IV NR (01:45)
[2020-05-23] MEDS ORDERED: LORAZEPAM 2MG/ML CPJ IV NR (01:45)
[2020-05-23 04:30] VITALS: BP 146/99
== END 2020-05-23 05:38 | disposition home or self-care (01) ==
LOC: ER 00:16
DX: R07.89 Other chest pain (principal); K21.9 Gastro-esophageal reflux disease without esophagitis; F15.10 Other stimulant abuse, uncomplicated; I10 Essential (primary) hypertension
CPT/HCPCS: 36415; 71045; 80053; 84484; 85025; 93005; 96361; 96374; 96375; 99285; J1885; J2060

== ENCOUNTER 2020-06-27 06:51 | Emergency (ER) | payer MEDICAID ==
[~2020-06-27] VITALS: Ht 177.8 cm; Wt 99.0 kg
[2020-06-27] MEDS ORDERED: LORAZEPAM 1MG TABLET PO ONE (07:30)
[2020-06-27 08:09] LABS: BASOPHILS % 0.3 % (0.0-2.0); HEMATOCRIT. 42.5 % (42.0-52.0); HEMOGLOBIN. 14.3 g/dL (14.0-18.0); LYMPHOCYTES % 20.3 % (20.0-50.0); MEAN CORPUSCULAR HEMOGLOBIN 31.8 pg (28.0-32.0); MEAN CORPUSCULAR VOLUME 94.5 fL (80.0-94.0); MEAN PLATELET VOLUME 8.5 fl (7.4-10.4); NEUTROPHILS % 74.4 % (40.0-76.0); PLATELET 220 x1000/uL (130-400); RED CELL DISTRIBUTION WIDTH 15.3 % (11.6-14.6)
[2020-06-27 08:15] LABS: CHLORIDE 107 mEq/L (98-107)
[2020-06-27 08:19] LABS: ETHANOL BLOOD 89 mg/dL
[2020-06-27 11:07] LABS: CLARITY URINE CLEAR (CLEAR); COLOR URINE YELLOW (YELLOW); KETONES URINE TRACE (NEGATIVE); LEUKOCYTE ESTERASE URINE NEGATIVE (NEGATIVE); NITRITE URINE NEGATIVE (NEGATIVE); OCCULT BLOOD URINE NEGATIVE (NEGATIVE); PH URINE 5.5 (4.5-8.0); PROTEIN URINE NEGATIVE (NEGATIVE); SPECIFIC GRAVITY URINE 1.019 (1.005-1.030); UROBILINOGEN URINE 0.2 E.U./dL (0.2-1.0)
[2020-06-27 11:24] LABS: *AMPHETAMINES SCREEN URINE PRESUMTIVE POSITIVE (NEGATIVE); *BARBITURATES SCREEN URINE NEGATIVE (NEGATIVE); *BENZODIAZEPINES SCREEN URINE PRESUMTIVE POSITIVE (NEGATIVE); *COCAINE SCREEN URINE PRESUMTIVE POSITIVE (NEGATIVE); METHADONE URINE SCREEN NEGATIVE (NEGATIVE)
[2020-06-27 11:25] LABS: CANNABINOID URINE SCREEN NEGATIVE (NEGATIVE); OPIATES URINE SCREEN PRESUMTIVE POSITIVE (NEGATIVE); PHENCYCLIDINE URINE SCREEN NEGATIVE (NEGATIVE)
[2020-06-27 11:57] LABS: CREATINE KINASE 269 IU/L (39-308)
[2020-06-27 14:30] VITALS: BP 155/98
== END 2020-06-27 14:30 | disposition home or self-care (01) ==
LOC: ER 07:25
DX: R07.89 Other chest pain (principal); F15.10 Other stimulant abuse, uncomplicated; F10.129 Alcohol abuse with intoxication, unspecified; F13.10 Sedative, hypnotic or anxiolytic abuse, uncomplicated; F16.10 Hallucinogen abuse, uncomplicated; Y90.4 Blood alcohol level of 80-99 mg/100 ml
CPT/HCPCS: 36415; 71045; 80053; 80305; 80320; 81003; 82550; 84484; 85025; 93005; 99285; G0480

== ENCOUNTER 2020-06-28 00:40 | Emergency (ER) | payer MEDICAID ==
[~2020-06-28] VITALS: Ht 180.3 cm; Wt 105.0 kg
[2020-06-28] MEDS ORDERED: ACETAMINOPHEN 325MG TABLET PO ONE (02:15)
[2020-06-28] MEDS ORDERED: IBUPROFEN 400MG TABLET PO ONE (02:30)
[2020-06-28 02:33] VITALS: BP 172/121
== END 2020-06-28 04:11 | disposition home or self-care (01) ==
LOC: ER 00:40
DX: R07.89 Other chest pain (principal); F15.10 Other stimulant abuse, uncomplicated; Z79.899 Other long term (current) drug therapy
CPT/HCPCS: 93005; 99283

== ENCOUNTER 2020-06-30 08:18 | Emergency (ER) | payer MEDICAID ==
[~2020-06-30] VITALS: Ht 167.6 cm; Wt 109.0 kg
[2020-06-30] MEDS ORDERED: LORAZEPAM 2MG/ML CPJ IV ONE ×2 (08:45→09:30)
[2020-06-30] MEDS ORDERED: SODIUM CHLORIDE 0.9% 1,000 ML IV ONE (09:30)
[2020-06-30 09:40] LABS: BASOPHILS % 0.3 % (0.0-2.0); EOSINOPHILS % 0.1 % (0.0-5.0); HEMOGLOBIN. 14.7 g/dL (14.0-18.0); LYMPHOCYTES % 23.2 % (20.0-50.0); MEAN CORPUSCULAR HEMOGLOBIN 31.2 pg (28.0-32.0); MEAN CORPUSCULAR VOLUME 93.9 fL (80.0-94.0); MEAN PLATELET VOLUME 8.7 fl (7.4-10.4); MONOCYTES % 6.8 % (2.0-8.0); NEUTROPHILS % 69.6 % (40.0-76.0); PLATELET 251 x1000/uL (130-400); RED BLOOD CELL COUNT 4.69 mill/uL (4.7-6.1); RED CELL DISTRIBUTION WIDTH 15.2 % (11.6-14.6)
[2020-06-30 09:48] LABS: CHLORIDE 105 mEq/L (98-107)
[2020-06-30 10:41] VITALS: BP 134/97
== END 2020-06-30 10:51 | disposition home or self-care (01) ==
LOC: ER 08:18
DX: F15.129 Other stimulant abuse with intoxication, unspecified (principal); R07.9 Chest pain, unspecified; R00.0 Tachycardia, unspecified; Z79.899 Other long term (current) drug therapy
CPT/HCPCS: 36415; 71045; 80053; 83880; 84484; 85025; 93005; 96361; 96374; 96376; 99285; J2060; J7030; Z7610

== ENCOUNTER 2020-07-28 02:10 | Emergency (ER) | payer MEDICAID ==
[~2020-07-28] VITALS: Ht 167.6 cm; Wt 107.0 kg
[2020-07-28] MEDS ORDERED: LORAZEPAM 1MG TABLET PO ONE (03:15)
[2020-07-28] MEDS ORDERED: HYDROCODONE/ACETAMINOPHEN 10/325MG TABLET PO ONE (03:15)
[2020-07-28] MEDS ORDERED: ASPIRIN 325MG TABLET PO ONE (03:15)
[2020-07-28 03:20] LABS: BASOPHILS % 0.3 % (0.0-2.0); EOSINOPHILS % 0.1 % (0.0-5.0); HEMATOCRIT. 44.8 % (42.0-52.0); HEMOGLOBIN. 14.9 g/dL (14.0-18.0); LYMPHOCYTES % 17.2 % (20.0-50.0); MEAN CORPUSCULAR HEMOGLOBIN 31.3 pg (28.0-32.0); MEAN CORPUSCULAR VOLUME 94.1 fL (80.0-94.0); MEAN PLATELET VOLUME 8.5 fl (7.4-10.4); MONOCYTES % 4.4 % (2.0-8.0); PLATELET 271 x1000/uL (130-400); RED BLOOD CELL COUNT 4.76 mill/uL (4.7-6.1); RED CELL DISTRIBUTION WIDTH 15.1 % (11.6-14.6)
[2020-07-28 03:24] LABS: CHLORIDE 106 mEq/L (98-107)
[2020-07-28] MEDS ORDERED: LORAZEPAM 1MG TABLET PO NR (05:45)
[2020-07-28 05:57] VITALS: BP 177/105
== END 2020-07-28 06:09 | disposition home or self-care (01) ==
LOC: ER 02:10
DX: F15.10 Other stimulant abuse, uncomplicated (principal); R07.89 Other chest pain
CPT/HCPCS: 36415; 71045; 80053; 83880; 84484; 85025; 93005; 99285

== ENCOUNTER 2020-07-29 02:26 | Emergency (ER) | payer MEDICAID ==
[~2020-07-29] VITALS: Ht 167.6 cm; Wt 109.0 kg
[2020-07-29] MEDS ORDERED: TETANUS, DIPHTHERIA, PERTUSSIS VAC/PF 0.5ML (>7YR OLD) IM ONE (02:45)
[2020-07-29 04:29] VITALS: BP 159/98
== END 2020-07-29 04:30 | disposition home or self-care (01) ==
LOC: ER 02:27
DX: S00.01XA Abrasion of scalp, initial encounter (principal); F15.10 Other stimulant abuse, uncomplicated; R07.89 Other chest pain; X58.XXXA Exposure to other specified factors, initial encounter; Y93.89 Activity, other specified; Y92.488 Other paved roadways as the place of occurrence of the external cause
CPT/HCPCS: 90471; 90715; 93005; 99284

== ENCOUNTER 2020-08-06 04:16 | Emergency (ER) | payer MEDICAID ==
[~2020-08-06] VITALS: Ht 167.6 cm; Wt 101.0 kg
[2020-08-06] MEDS ORDERED: KETOROLAC 30MG/ML VIAL IV STA (04:41)
[2020-08-06] MEDS ORDERED: SODIUM CHLORIDE 0.9% 1,000 ML IV ONE (04:45)
[2020-08-06] MEDS ORDERED: LORAZEPAM 2MG/ML CPJ IV ONE ×2 (04:45→05:45)
[2020-08-06 05:01] LABS: BASOPHILS % 0.8 % (0.0-2.0); HEMATOCRIT. 43.7 % (42.0-52.0); HEMOGLOBIN. 14.3 g/dL (14.0-18.0); LYMPHOCYTES % 12.3 % (20.0-50.0); MEAN CORPUSCULAR HEMOGLOBIN 31.1 pg (28.0-32.0); MEAN CORPUSCULAR VOLUME 94.7 fL (80.0-94.0); MEAN PLATELET VOLUME 8.8 fl (7.4-10.4); MONOCYTES % 5.5 % (2.0-8.0); NEUTROPHILS % 81.4 % (40.0-76.0); PLATELET 263 x1000/uL (130-400); RED BLOOD CELL COUNT 4.61 mill/uL (4.7-6.1); RED CELL DISTRIBUTION WIDTH 15.7 % (11.6-14.6)
[2020-08-06 05:10] LABS: CHLORIDE 109 mEq/L (98-107)
[2020-08-06 05:14] LABS: ETHANOL BLOOD 103 mg/dL
[2020-08-06 06:21] LABS: *AMPHETAMINES SCREEN URINE PRESUMTIVE POSITIVE (NEGATIVE); *BARBITURATES SCREEN URINE NEGATIVE (NEGATIVE); *BENZODIAZEPINES SCREEN URINE NEGATIVE (NEGATIVE)
[2020-08-06 06:22] LABS: *COCAINE SCREEN URINE NEGATIVE (NEGATIVE); CANNABINOID URINE SCREEN NEGATIVE (NEGATIVE); METHADONE URINE SCREEN NEGATIVE (NEGATIVE); OPIATES URINE SCREEN NEGATIVE (NEGATIVE); PHENCYCLIDINE URINE SCREEN NEGATIVE (NEGATIVE)
[2020-08-06 07:45] VITALS: BP 121/76
== END 2020-08-06 08:06 | disposition home or self-care (01) ==
LOC: ER 04:16
DX: T43.621A Poisoning by amphetamines, accidental (unintentional), initial encounter (principal); F10.21 Alcohol dependence, in remission; Y92.018 Other place in single-family (private) house as the place of occurrence of the external cause
CPT/HCPCS: 36415; 71045; 80053; 80305; 80320; 83690; 84484; 85025; 93005; 96361; 96374; 96375; 96376; 99285; J1885; J2060; J7030; Z7610; G0480

== ENCOUNTER 2020-08-08 02:38 | Emergency (ER) | payer MEDICAID ==
[~2020-08-08] VITALS: Ht 167.6 cm; Wt 100.0 kg
[2020-08-08] MEDS ORDERED: ACETAMINOPHEN 325MG TABLET PO STA (03:46)
[2020-08-08 04:13] LABS: BASOPHILS % 0.4 % (0.0-2.0); EOSINOPHILS % 0.1 % (0.0-5.0); HEMATOCRIT. 39.2 % (42.0-52.0); HEMOGLOBIN. 12.9 g/dL (14.0-18.0); LYMPHOCYTES % 19.8 % (20.0-50.0); MEAN CORPUSCULAR VOLUME 94.1 fL (80.0-94.0); MEAN PLATELET VOLUME 8.5 fl (7.4-10.4); NEUTROPHILS % 68.7 % (40.0-76.0); PLATELET 220 x1000/uL (130-400); RED BLOOD CELL COUNT 4.16 mill/uL (4.7-6.1); RED CELL DISTRIBUTION WIDTH 15.9 % (11.6-14.6)
[2020-08-08 04:22] LABS: CHLORIDE 104 mEq/L (98-107)
[2020-08-08 05:30] VITALS: BP 132/72
== END 2020-08-08 06:52 | disposition home or self-care (01) ==
LOC: ER 02:38
DX: F15.129 Other stimulant abuse with intoxication, unspecified (principal); R07.89 Other chest pain
CPT/HCPCS: 36415; 71045; 80053; 83880; 84484; 85025; 93005; 99285

== ENCOUNTER 2020-08-10 03:11 | Emergency (ER) | payer MEDICAID ==
[~2020-08-10] VITALS: Ht 167.6 cm; Wt 103.1 kg
[2020-08-10] MEDS ORDERED: IBUPROFEN 600MG TABLET PO ONE (04:45)
[2020-08-10 05:10] VITALS: BP 152/98
== END 2020-08-10 05:17 | disposition home or self-care (01) ==
LOC: ER 03:11
DX: R07.2 Precordial pain (principal); R00.2 Palpitations; R03.0 Elevated blood-pressure reading, without diagnosis of hypertension
CPT/HCPCS: 93005; 99283

== ENCOUNTER 2020-08-26 02:53 | Emergency (ER) | payer MEDICAID ==
[~2020-08-26] VITALS: Ht 180.3 cm; Wt 91.0 kg
[2020-08-26] MEDS ORDERED: FAMOTIDINE 20MG/2ML VIAL IV STA (03:07)
[2020-08-26] MEDS ORDERED: ONDANSETRON HCL 4MG/2ML INJ IV STA (03:07)
[2020-08-26] MEDS ORDERED: LORAZEPAM 2MG/ML CPJ IV ONE (03:15)
[2020-08-26] MEDS ORDERED: SODIUM CHLORIDE 0.9% 1,000 ML IV ONE (03:15)
[2020-08-26 03:39] LABS: BASOPHILS % 0.4 % (0.0-2.0); EOSINOPHILS % 0.2 % (0.0-5.0); HEMATOCRIT. 41.7 % (42.0-52.0); LYMPHOCYTES % 19.9 % (20.0-50.0); MEAN CORPUSCULAR HEMOGLOBIN 31.6 pg (28.0-32.0); MEAN CORPUSCULAR VOLUME 94.1 fL (80.0-94.0); MEAN PLATELET VOLUME 8.5 fl (7.4-10.4); MONOCYTES % 8.5 % (2.0-8.0); PLATELET 262 x1000/uL (130-400); RED BLOOD CELL COUNT 4.43 mill/uL (4.7-6.1); RED CELL DISTRIBUTION WIDTH 15.6 % (11.6-14.6)
[2020-08-26 03:46] LABS: CHLORIDE 104 mEq/L (98-107)
[2020-08-26 03:50] LABS: ETHANOL BLOOD 28 mg/dL; PROTHROMBIN TIME 10.6 sec (9.6-11.0)
[2020-08-26 04:30] VITALS: BP 164/105
[2020-08-26] MEDS ORDERED: OMEP20CA14 MT (05:43)
[2020-08-26] MEDS ORDERED: ONDA4TAB5 MT (05:43)
== END 2020-08-26 06:05 | disposition home or self-care (01) ==
LOC: ER 02:53
DX: R10.13 Epigastric pain (principal); R11.10 Vomiting, unspecified; F10.129 Alcohol abuse with intoxication, unspecified; F15.10 Other stimulant abuse, uncomplicated; Y90.1 Blood alcohol level of 20-39 mg/100 ml
CPT/HCPCS: 36415; 71045; 80053; 80320; 83690; 84484; 85025; 85610; 93005; 96361; 96374; 96375; 99285; J2060; J2405; J3490; J7030; G0480

== ENCOUNTER 2020-08-31 00:36 | Emergency (ER) | payer MEDICAID ==
[~2020-08-31] VITALS: Ht 175.3 cm; Wt 113.0 kg
[~2020-08-31 00:36] MED LIST changes: +ONDA4TAB5 MT
[2020-08-31 02:19] LABS: BASOPHILS % 0.3 % (0.0-2.0); HEMATOCRIT. 40.9 % (42.0-52.0); HEMOGLOBIN. 13.9 g/dL (14.0-18.0); LYMPHOCYTES % 15.5 % (20.0-50.0); MEAN CORPUSCULAR HEMOGLOBIN 31.7 pg (28.0-32.0); MEAN CORPUSCULAR VOLUME 93.5 fL (80.0-94.0); MEAN PLATELET VOLUME 8.5 fl (7.4-10.4); MONOCYTES % 6.1 % (2.0-8.0); NEUTROPHILS % 78.1 % (40.0-76.0); PLATELET 272 x1000/uL (130-400); RED BLOOD CELL COUNT 4.37 mill/uL (4.7-6.1); RED CELL DISTRIBUTION WIDTH 15.2 % (11.6-14.6)
[2020-08-31 02:22] LABS: CHLORIDE 107 mEq/L (98-107)
[2020-08-31 04:48] VITALS: BP 178/97
== END 2020-08-31 04:55 | disposition home or self-care (01) ==
LOC: ER 00:36
DX: T43.621A Poisoning by amphetamines, accidental (unintentional), initial encounter (principal); R07.89 Other chest pain; R03.0 Elevated blood-pressure reading, without diagnosis of hypertension; Y92.89 Other specified places as the place of occurrence of the external cause
CPT/HCPCS: 36415; 71045; 80053; 85025; 93005; 99285

== ENCOUNTER 2020-09-14 23:50 | Emergency (ER) | payer MEDICAID ==
[~2020-09-14] VITALS: Ht 167.6 cm; Wt 92.0 kg
[2020-09-15] MEDS ORDERED: ACETAMINOPHEN 325MG TABLET PO ONE (00:30)
[2020-09-15] MEDS ORDERED: SODIUM CHLORIDE 0.9% 1,000 ML IV ONE (00:30)
[2020-09-15] MEDS ORDERED: LORAZEPAM 2MG/ML CPJ IV ONE (00:30)
[2020-09-15 01:29] LABS: BASOPHILS % 0.3 % (0.0-2.0); EOSINOPHILS % 0.2 % (0.0-5.0); HEMOGLOBIN. 13.5 g/dL (14.0-18.0); MEAN CORPUSCULAR HEMOGLOBIN 30.5 pg (28.0-32.0); MEAN CORPUSCULAR VOLUME 92.9 fL (80.0-94.0); NEUTROPHILS % 65.5 % (40.0-76.0); PLATELET 245 x1000/uL (130-400); RED BLOOD CELL COUNT 4.41 mill/uL (4.7-6.1); RED CELL DISTRIBUTION WIDTH 15.1 % (11.6-14.6)
[2020-09-15 01:45] LABS: CHLORIDE 105 mEq/L (98-107)
[2020-09-15 05:18] VITALS: BP 149/99
== END 2020-09-15 05:19 | disposition home or self-care (01) ==
LOC: ER 23:50
DX: F15.10 Other stimulant abuse, uncomplicated (principal); R11.0 Nausea; R61 Generalized hyperhidrosis; E86.0 Dehydration; R07.9 Chest pain, unspecified; Z79.899 Other long term (current) drug therapy
CPT/HCPCS: 36415; 71045; 80053; 83690; 83880; 84484; 85025; 93005; 96361; 96374; 99285; J2060; J7030; Z7610

== ENCOUNTER 2020-09-16 04:26 | Emergency (ER) | payer MEDICAID ==
[~2020-09-16] VITALS: Ht 170.2 cm; Wt 102.0 kg
[2020-09-16] MEDS ORDERED: LORAZEPAM 2MG/ML CPJ IV ONE ×2 (05:15→05:45)
[2020-09-16] MEDS ORDERED: SODIUM CHLORIDE 0.9% 1,000 ML IV ONE ×2 (05:15→05:45)
[2020-09-16 05:55] LABS: BASOPHILS % 0.4 % (0.0-2.0); EOSINOPHILS % 0.1 % (0.0-5.0); HEMATOCRIT. 38.7 % (42.0-52.0); HEMOGLOBIN. 12.8 g/dL (14.0-18.0); LYMPHOCYTES % 18.4 % (20.0-50.0); MEAN CORPUSCULAR HEMOGLOBIN 30.2 pg (28.0-32.0); MEAN CORPUSCULAR VOLUME 91.9 fL (80.0-94.0); MEAN PLATELET VOLUME 8.7 fl (7.4-10.4); MONOCYTES % 9.6 % (2.0-8.0); NEUTROPHILS % 71.5 % (40.0-76.0); PLATELET 231 x1000/uL (130-400); RED BLOOD CELL COUNT 4.22 mill/uL (4.7-6.1); RED CELL DISTRIBUTION WIDTH 14.9 % (11.6-14.6)
[2020-09-16 06:04] LABS: CHLORIDE 103 mEq/L (98-107)
[2020-09-16 09:30] VITALS: BP 121/80
== END 2020-09-16 11:00 | disposition home or self-care (01) ==
LOC: ER 04:33
DX: F15.10 Other stimulant abuse, uncomplicated (principal); R07.89 Other chest pain
CPT/HCPCS: 36415; 71045; 80053; 83880; 84484; 85025; 93005; 96361; 96374; 99285; J2060; J7030

== ENCOUNTER 2020-09-28 07:23 | Emergency (ER) | payer MEDICAID ==
[~2020-09-28] VITALS: Ht 165.1 cm; Wt 98.0 kg
[2020-09-28] MEDS ORDERED: SODIUM CHLORIDE 0.9% 1,000 ML IV ONE (08:00)
[2020-09-28] MEDS ORDERED: LORAZEPAM 2MG/ML CPJ IV ONE (08:00)
[2020-09-28 08:08] LABS: BASOPHILS % 0.3 % (0.0-2.0); EOSINOPHILS % 0.1 % (0.0-5.0); HEMATOCRIT. 43.5 % (42.0-52.0); HEMOGLOBIN. 14.8 g/dL (14.0-18.0); LYMPHOCYTES % 15.5 % (20.0-50.0); MEAN CORPUSCULAR VOLUME 91.2 fL (80.0-94.0); MEAN PLATELET VOLUME 8.3 fl (7.4-10.4); MONOCYTES % 13.5 % (2.0-8.0); NEUTROPHILS % 70.6 % (40.0-76.0); PLATELET 272 x1000/uL (130-400); RED BLOOD CELL COUNT 4.76 mill/uL (4.7-6.1); RED CELL DISTRIBUTION WIDTH 15.6 % (11.6-14.6)
[2020-09-28 08:17] LABS: CHLORIDE 102 mEq/L (98-107)
[2020-09-28 08:24] LABS: ETHANOL BLOOD < 10 mg/dL
[2020-09-28 09:26] VITALS: BP 172/130
== END 2020-09-28 09:29 | disposition home or self-care (01) ==
LOC: ER 07:23
DX: T43.621A Poisoning by amphetamines, accidental (unintentional), initial encounter (principal); R00.2 Palpitations; I15.0 Renovascular hypertension; F15.188 Other stimulant abuse with other stimulant-induced disorder; Y92.89 Other specified places as the place of occurrence of the external cause
CPT/HCPCS: 36415; 71045; 80053; 80320; 83880; 84484; 85025; 93005; 96374; 99285; J2060; J7030; G0480

== ENCOUNTER 2020-09-29 08:57 | Emergency (ER) | payer MEDICAID ==
[~2020-09-29] VITALS: Ht 182.9 cm; Wt 111.0 kg
[2020-09-29] MEDS ORDERED: ACETAMINOPHEN 325MG TABLET PO STA (09:10)
[2020-09-29] MEDS ORDERED: LORAZEPAM 1MG TABLET PO ONE (09:15)
[2020-09-29 09:43] LABS: BASOPHILS % 0.4 % (0.0-2.0); EOSINOPHILS % 0.3 % (0.0-5.0); HEMATOCRIT. 39.4 % (42.0-52.0); HEMOGLOBIN. 13.6 g/dL (14.0-18.0); LYMPHOCYTES % 16.5 % (20.0-50.0); MEAN CORPUSCULAR HEMOGLOBIN 31.5 pg (28.0-32.0); MEAN CORPUSCULAR VOLUME 91.2 fL (80.0-94.0); MEAN PLATELET VOLUME 8.3 fl (7.4-10.4); NEUTROPHILS % 68.8 % (40.0-76.0); PLATELET 245 x1000/uL (130-400); RED BLOOD CELL COUNT 4.32 mill/uL (4.7-6.1); RED CELL DISTRIBUTION WIDTH 15.4 % (11.6-14.6)
[2020-09-29 09:50] LABS: CHLORIDE 106 mEq/L (98-107)
[2020-09-29] MEDS ORDERED: LABETALOL HCL 100MG TABLET PO ONE (11:45)
[2020-09-29 12:46] VITALS: BP 160/112
== END 2020-09-29 12:50 | disposition home or self-care (01) ==
LOC: ER 09:02
DX: R07.89 Other chest pain (principal); F15.10 Other stimulant abuse, uncomplicated
CPT/HCPCS: 36415; 71045; 80053; 83880; 84484; 85025; 93005; 99285

== ENCOUNTER 2020-09-29 22:07 | Emergency (ER) | payer MEDICAID ==
[~2020-09-29] VITALS: Ht 175.3 cm; Wt 109.0 kg
[2020-09-29] MEDS ORDERED: LORAZEPAM 0.5MG TABLET PO ONE (22:30)
[2020-09-29 22:45] LABS: BASOPHILS % 0.4 % (0.0-2.0); EOSINOPHILS % 0.3 % (0.0-5.0); HEMOGLOBIN. 12.8 g/dL (14.0-18.0); LYMPHOCYTES % 26.6 % (20.0-50.0); MEAN CORPUSCULAR HEMOGLOBIN 30.7 pg (28.0-32.0); MEAN CORPUSCULAR VOLUME 90.8 fL (80.0-94.0); MEAN PLATELET VOLUME 8.1 fl (7.4-10.4); MONOCYTES % 10.4 % (2.0-8.0); NEUTROPHILS % 62.3 % (40.0-76.0); PLATELET 239 x1000/uL (130-400); RED BLOOD CELL COUNT 4.18 mill/uL (4.7-6.1); RED CELL DISTRIBUTION WIDTH 15.6 % (11.6-14.6)
[2020-09-29 22:51] LABS: CHLORIDE 105 mEq/L (98-107)
[2020-09-30] VITALS: BP 141/81
== END 2020-09-30 00:09 | disposition home or self-care (01) ==
LOC: ER 22:07
DX: R07.89 Other chest pain (principal); F15.10 Other stimulant abuse, uncomplicated; F20.9 Schizophrenia, unspecified
CPT/HCPCS: 36415; 71045; 80053; 85025; 93005; 99285

== ENCOUNTER 2020-10-24 04:36 | Emergency (ER) | payer MEDICAID ==
[~2020-10-24] VITALS: Ht 170.2 cm; Wt 91.0 kg
[2020-10-24] MEDS ORDERED: SODIUM CHLORIDE 0.9% 1,000 ML IV ONE (04:45)
[2020-10-24 05:10] LABS: CHLORIDE 108 mEq/L (98-107)
[2020-10-24 05:15] LABS: BASOPHILS % 0.3 % (0.0-2.0); ETHANOL BLOOD 23 mg/dL; HEMATOCRIT. 42.2 % (42.0-52.0); HEMOGLOBIN. 13.9 g/dL (14.0-18.0); LYMPHOCYTES % 14.1 % (20.0-50.0); MEAN CORPUSCULAR HEMOGLOBIN 30.1 pg (28.0-32.0); MEAN CORPUSCULAR VOLUME 91.5 fL (80.0-94.0); MEAN PLATELET VOLUME 8.5 fl (7.4-10.4); MONOCYTES % 8.3 % (2.0-8.0); NEUTROPHILS % 77.3 % (40.0-76.0); PLATELET 264 x1000/uL (130-400); RED BLOOD CELL COUNT 4.62 mill/uL (4.7-6.1); RED CELL DISTRIBUTION WIDTH 17.3 % (11.6-14.6)
[2020-10-24 05:19] LABS: CREATINE KINASE 134 IU/L (39-308)
[2020-10-24] MEDS ORDERED: SODIUM CHLORIDE 0.9% 1,000 ML IV SCH (06:45)
[2020-10-24] MEDS ORDERED: DEXT 5%/0.9% NACL 1,000 ML IV ONE (11:15)
[2020-10-24 12:50] LABS: CLARITY URINE CLEAR (CLEAR); COLOR URINE YELLOW (YELLOW); KETONES URINE TRACE (NEGATIVE); LEUKOCYTE ESTERASE URINE NEGATIVE (NEGATIVE); NITRITE URINE NEGATIVE (NEGATIVE); OCCULT BLOOD URINE NEGATIVE (NEGATIVE); PH URINE 6.5 (4.5-8.0); PROTEIN URINE 2+ (NEGATIVE); SPECIFIC GRAVITY URINE 1.023 (1.005-1.030); UROBILINOGEN URINE 0.2 E.U./dL (0.2-1.0)
[2020-10-24 12:55] VITALS: BP 163/100
[2020-10-24 13:09] LABS: *BARBITURATES SCREEN URINE NEGATIVE (NEGATIVE)
[2020-10-24 13:10] LABS: *AMPHETAMINES SCREEN URINE PRESUMTIVE POSITIVE (NEGATIVE); *COCAINE SCREEN URINE NEGATIVE (NEGATIVE); CANNABINOID URINE SCREEN NEGATIVE (NEGATIVE); METHADONE URINE SCREEN NEGATIVE (NEGATIVE); OPIATES URINE SCREEN NEGATIVE (NEGATIVE); PHENCYCLIDINE URINE SCREEN NEGATIVE (NEGATIVE)
[2020-10-24 13:13] LABS: *BENZODIAZEPINES SCREEN URINE NEGATIVE (NEGATIVE)
== END 2020-10-24 13:13 | disposition home or self-care (01) ==
LOC: ER 04:36
DX: R10.9 Unspecified abdominal pain (principal); F20.9 Schizophrenia, unspecified; F15.10 Other stimulant abuse, uncomplicated
CPT/HCPCS: 36415; 74176; 80053; 80305; 80320; 81003; 82550; 83690; 84484; 85025; 93005; 96360; 96361; 99285; J7030; J7042; G0480

== ENCOUNTER 2020-11-05 01:01 | Emergency (ER) | payer MEDICAID ==
[~2020-11-05] VITALS: Ht 167.6 cm; Wt 108.0 kg
[2020-11-05] MEDS ORDERED: ASPIRIN 81MG TABLET PO ONE (01:45)
[2020-11-05] MEDS: NITROGLYCERIN 0.4MG TABLET SL SL PRN ×3 (01:52→02:55)
[2020-11-05 02:03] LABS: BASOPHILS % 0.5 % (0.0-2.0); EOSINOPHILS % 0.1 % (0.0-5.0); HEMATOCRIT. 40.8 % (42.0-52.0); HEMOGLOBIN. 13.8 g/dL (14.0-18.0); MEAN CORPUSCULAR HEMOGLOBIN 30.4 pg (28.0-32.0); MEAN CORPUSCULAR VOLUME 89.5 fL (80.0-94.0); MEAN PLATELET VOLUME 8.4 fl (7.4-10.4); NEUTROPHILS % 67.4 % (40.0-76.0); PLATELET 271 x1000/uL (130-400); RED BLOOD CELL COUNT 4.56 mill/uL (4.7-6.1); RED CELL DISTRIBUTION WIDTH 17.2 % (11.6-14.6)
[2020-11-05 02:11] LABS: CHLORIDE 105 mEq/L (98-107)
[2020-11-05 03:17] VITALS: BP 153/104
== END 2020-11-05 03:19 | disposition home or self-care (01) ==
LOC: ER 01:01
DX: R07.89 Other chest pain (principal); F15.10 Other stimulant abuse, uncomplicated
CPT/HCPCS: 36415; 80053; 83880; 84484; 85025; 93005; 99284; Z7610

== ENCOUNTER 2020-11-05 19:04 | Emergency (ER) | payer MEDICAID ==
[~2020-11-05] VITALS: Ht 167.6 cm; Wt 109.0 kg
[2020-11-05] MEDS ORDERED: LORAZEPAM 1MG TABLET PO ONE (19:15)
[2020-11-05 20:43] LABS: BASOPHILS % 0.4 % (0.0-2.0); EOSINOPHILS % 0.2 % (0.0-5.0); HEMATOCRIT. 41.4 % (42.0-52.0); HEMOGLOBIN. 13.9 g/dL (14.0-18.0); LYMPHOCYTES % 19.1 % (20.0-50.0); MEAN CORPUSCULAR HEMOGLOBIN 30.3 pg (28.0-32.0); MEAN CORPUSCULAR VOLUME 90.2 fL (80.0-94.0); MEAN PLATELET VOLUME 8.2 fl (7.4-10.4); MONOCYTES % 11.9 % (2.0-8.0); NEUTROPHILS % 68.4 % (40.0-76.0); PLATELET 268 x1000/uL (130-400); RED BLOOD CELL COUNT 4.59 mill/uL (4.7-6.1); RED CELL DISTRIBUTION WIDTH 17.1 % (11.6-14.6)
[2020-11-05 20:49] LABS: CHLORIDE 103 mEq/L (98-107)
[2020-11-05 21:55] VITALS: BP 170/86
== END 2020-11-05 21:56 | disposition home or self-care (01) ==
LOC: ER 19:04
DX: T43.621A Poisoning by amphetamines, accidental (unintentional), initial encounter (principal); R00.2 Palpitations; Y92.488 Other paved roadways as the place of occurrence of the external cause
CPT/HCPCS: 36415; 71045; 80053; 85025; 93005; 99285

== ENCOUNTER 2020-11-07 07:12 | Emergency (ER) | payer MEDICAID ==
[~2020-11-07] VITALS: Ht 167.6 cm; Wt 109.0 kg
[2020-11-07] MEDS ORDERED: LORAZEPAM 1MG TABLET PO ONE ×2 (08:00→09:30)
[2020-11-07 08:09] LABS: BASOPHILS % 0.4 % (0.0-2.0); EOSINOPHILS % 0.1 % (0.0-5.0); HEMATOCRIT. 38.8 % (42.0-52.0); HEMOGLOBIN. 13.3 g/dL (14.0-18.0); LYMPHOCYTES % 16.5 % (20.0-50.0); MEAN CORPUSCULAR HEMOGLOBIN 30.5 pg (28.0-32.0); MEAN CORPUSCULAR VOLUME 89.4 fL (80.0-94.0); MEAN PLATELET VOLUME 9.1 fl (7.4-10.4); MONOCYTES % 8.2 % (2.0-8.0); NEUTROPHILS % 74.8 % (40.0-76.0); PLATELET 253 x1000/uL (130-400); RED BLOOD CELL COUNT 4.34 mill/uL (4.7-6.1); RED CELL DISTRIBUTION WIDTH 17.1 % (11.6-14.6)
[2020-11-07 08:13] LABS: CHLORIDE 108 mEq/L (98-107)
[2020-11-07 14:06] VITALS: BP 155/98
== END 2020-11-07 14:13 | disposition home or self-care (01) ==
LOC: ER 07:35
DX: T43.621A Poisoning by amphetamines, accidental (unintentional), initial encounter (principal); R07.89 Other chest pain; F10.21 Alcohol dependence, in remission; Y92.018 Other place in single-family (private) house as the place of occurrence of the external cause
CPT/HCPCS: 36415; 71045; 80053; 85025; 93005; 99285; Z7610

== ENCOUNTER 2021-02-13 05:19 | Emergency (ER) | payer MEDICAID ==
[~2021-02-13] VITALS: Ht 167.6 cm; Wt 109.0 kg
[2021-02-13 07:01] VITALS: BP 191/127
[2021-02-13] MEDS ORDERED: LORAZEPAM 2MG/ML CPJ IV ONE (08:00)
[2021-02-13] MEDS ORDERED: SODIUM CHLORIDE 0.9% 1,000 ML IV ONE (08:00)
[2021-02-13 08:05] LABS: BASOPHILS % 0.5 % (0.0-2.0); HEMATOCRIT. 44.9 % (42.0-52.0); HEMOGLOBIN. 14.9 g/dL (14.0-18.0); LYMPHOCYTES % 16.6 % (20.0-50.0); MEAN CORPUSCULAR HEMOGLOBIN 30.7 pg (28.0-32.0); MEAN CORPUSCULAR VOLUME 92.5 fL (80.0-94.0); MEAN PLATELET VOLUME 8.6 fl (7.4-10.4); MONOCYTES % 8.8 % (2.0-8.0); NEUTROPHILS % 74.1 % (40.0-76.0); PLATELET 270 x1000/uL (130-400); RED BLOOD CELL COUNT 4.85 mill/uL (4.7-6.1); RED CELL DISTRIBUTION WIDTH 18.5 % (11.6-14.6)
[2021-02-13 08:13] LABS: CHLORIDE 104 mEq/L (98-107)
[2021-02-14] MEDS ORDERED: IBUP-2028 MT (05:45)
== END 2021-02-13 10:06 | disposition home or self-care (01) ==
LOC: ER 05:19
DX: R07.89 Other chest pain (principal); F15.10 Other stimulant abuse, uncomplicated; Z86.19 Personal history of other infectious and parasitic diseases
CPT/HCPCS: 36415; 71045; 80053; 83880; 84484; 85025; 93005; 96374; 99285; J2060; J7030

== ENCOUNTER 2021-02-14 03:06 | Emergency (ER) | payer MEDICAID ==
[~2021-02-14] VITALS: Ht 170.2 cm; Wt 100.0 kg
[2021-02-14] MEDS ORDERED: SODIUM CHLORIDE 0.9% 1,000 ML IV ONE ×2 (03:15→04:15)
[2021-02-14] MEDS ORDERED: KETOROLAC 15MG/ML VIAL IV ONE (03:15)
[2021-02-14 04:03] LABS: BASOPHILS % 0.4 % (0.0-2.0); EOSINOPHILS % 0.1 % (0.0-5.0); HEMATOCRIT. 43.5 % (42.0-52.0); HEMOGLOBIN. 14.7 g/dL (14.0-18.0); LYMPHOCYTES % 18.7 % (20.0-50.0); MEAN CORPUSCULAR HEMOGLOBIN 30.9 pg (28.0-32.0); MEAN CORPUSCULAR VOLUME 91.5 fL (80.0-94.0); MEAN PLATELET VOLUME 8.8 fl (7.4-10.4); NEUTROPHILS % 72.8 % (40.0-76.0); PLATELET 283 x1000/uL (130-400); RED BLOOD CELL COUNT 4.76 mill/uL (4.7-6.1); RED CELL DISTRIBUTION WIDTH 18.7 % (11.6-14.6)
[2021-02-14 04:13] LABS: CHLORIDE 102 mEq/L (98-107)
[2021-02-14] MEDS ORDERED: ACETAMINOPHEN 325MG TABLET PO ONE (04:15)
[2021-02-14] MEDS ORDERED: LORAZEPAM 2MG/ML CPJ IV ONE (04:15)
[2021-02-14 04:17] LABS: ETHANOL BLOOD 40 mg/dL
[2021-02-14] MEDS ORDERED: IBUP-2028 MT (05:45)
[2021-02-14 05:50] VITALS: BP 169/99
== END 2021-02-14 06:16 | disposition home or self-care (01) ==
LOC: ER 03:06
DX: R07.89 Other chest pain (principal); E87.6 Hypokalemia; F15.10 Other stimulant abuse, uncomplicated; Z79.899 Other long term (current) drug therapy
CPT/HCPCS: 36415; 71045; 80053; 80320; 85025; 96361; 96374; 96375; 99284; J1885; J2060; J7030; G0480

== ENCOUNTER 2021-02-21 05:27 | Emergency (ER) | payer MEDICAID ==
[~2021-02-21] VITALS: Ht 177.8 cm; Wt 113.0 kg
[~2021-02-21 05:27] MED LIST changes: +IBUP-2028 MT
[2021-02-21 05:29] VITALS: BP 180/98
[2021-02-21] MEDS ORDERED: LORAZEPAM 1MG TABLET PO ONE (05:45)
[2021-02-21 05:56] LABS: BASOPHILS % 0.3 % (0.0-2.0); HEMATOCRIT. 41.5 % (42.0-52.0); LYMPHOCYTES % 10.5 % (20.0-50.0); MEAN CORPUSCULAR HEMOGLOBIN 30.7 pg (28.0-32.0); MEAN PLATELET VOLUME 8.6 fl (7.4-10.4); MONOCYTES % 6.3 % (2.0-8.0); NEUTROPHILS % 82.9 % (40.0-76.0); PLATELET 253 x1000/uL (130-400); RED BLOOD CELL COUNT 4.57 mill/uL (4.7-6.1); RED CELL DISTRIBUTION WIDTH 18.9 % (11.6-14.6)
[2021-02-21 05:57] LABS: CHLORIDE 108 mEq/L (98-107)
[2021-02-21 06:02] LABS: ETHANOL BLOOD 28 mg/dL
[2021-02-21 08:59] LABS: CLARITY URINE CLEAR (CLEAR); COLOR URINE YELLOW (YELLOW); KETONES URINE 1+ (NEGATIVE); LEUKOCYTE ESTERASE URINE NEGATIVE (NEGATIVE); NITRITE URINE NEGATIVE (NEGATIVE); OCCULT BLOOD URINE NEGATIVE (NEGATIVE); PROTEIN URINE 1+ (NEGATIVE); SPECIFIC GRAVITY URINE 1.022 (1.005-1.030); UROBILINOGEN URINE 0.2 E.U./dL (0.2-1.0)
[2021-02-21 09:13] LABS: *AMPHETAMINES SCREEN URINE PRESUMTIVE POSITIVE (NEGATIVE); *BARBITURATES SCREEN URINE NEGATIVE (NEGATIVE); *BENZODIAZEPINES SCREEN URINE NEGATIVE (NEGATIVE); *COCAINE SCREEN URINE NEGATIVE (NEGATIVE); METHADONE URINE SCREEN NEGATIVE (NEGATIVE); OPIATES URINE SCREEN NEGATIVE (NEGATIVE); PHENCYCLIDINE URINE SCREEN NEGATIVE (NEGATIVE)
[2021-02-21 09:14] LABS: CANNABINOID URINE SCREEN NEGATIVE (NEGATIVE)
[2021-02-21] MEDS ORDERED: ACETAMINOPHEN 325MG TABLET PO ONE (11:00)
== END 2021-02-21 14:04 | disposition left against medical advice (07) ==
LOC: ER 05:27
DX: R07.89 Other chest pain (principal); F15.10 Other stimulant abuse, uncomplicated; Z79.899 Other long term (current) drug therapy
CPT/HCPCS: 36415; 71045; 80053; 80305; 80320; 81003; 85025; 93005; 99284; G0480

== ENCOUNTER 2021-04-03 01:43 | Emergency (ER) | payer MEDICAID ==
[~2021-04-03] VITALS: Ht 167.6 cm; Wt 109.0 kg
[2021-04-03] MEDS ORDERED: LORAZEPAM 2MG/ML CPJ IV STA (02:53)
[2021-04-03] MEDS ORDERED: ACETAMINOPHEN 325MG TABLET PO STA (02:53)
[2021-04-03] MEDS ORDERED: SODIUM CHLORIDE 0.9% 1,000 ML IV ONE ×2 (03:00→09:15)
[2021-04-03 03:35] LABS: BASOPHILS % 0.3 % (0.0-2.0); HEMATOCRIT. 44.9 % (42.0-52.0); HEMOGLOBIN. 14.8 g/dL (14.0-18.0); LYMPHOCYTES % 10.8 % (20.0-50.0); MEAN CORPUSCULAR HEMOGLOBIN 30.4 pg (28.0-32.0); MEAN CORPUSCULAR VOLUME 92.1 fL (80.0-94.0); MEAN PLATELET VOLUME 8.3 fl (7.4-10.4); MONOCYTES % 5.2 % (2.0-8.0); NEUTROPHILS % 83.7 % (40.0-76.0); PLATELET 299 x1000/uL (130-400); RED BLOOD CELL COUNT 4.87 mill/uL (4.7-6.1); RED CELL DISTRIBUTION WIDTH 16.7 % (11.6-14.6)
[2021-04-03 03:41] LABS: CHLORIDE 105 mEq/L (98-107)
[2021-04-03 03:45] LABS: ETHANOL BLOOD 63 mg/dL
[2021-04-03] MEDS ORDERED: HYDR-3782 MT (05:48)
[2021-04-03] MEDS ORDERED: IOHEXOL-350 100 ML BOTTLE ONE (06:40)
[2021-04-03] MEDS ORDERED: LORAZEPAM 2MG/ML CPJ IV ONE (09:15)
[2021-04-03 10:45] LABS: CLARITY URINE CLEAR (CLEAR); COLOR URINE YELLOW (YELLOW); KETONES URINE TRACE (NEGATIVE); LEUKOCYTE ESTERASE URINE NEGATIVE (NEGATIVE); NITRITE URINE NEGATIVE (NEGATIVE); OCCULT BLOOD URINE NEGATIVE (NEGATIVE); PROTEIN URINE TRACE (NEGATIVE); SPECIFIC GRAVITY URINE 1.053 (1.005-1.030); UROBILINOGEN URINE 0.2 E.U./dL (0.2-1.0)
[2021-04-03 11:15] LABS: *AMPHETAMINES SCREEN URINE PRESUMTIVE POSITIVE (NEGATIVE); *BARBITURATES SCREEN URINE NEGATIVE (NEGATIVE); *BENZODIAZEPINES SCREEN URINE NEGATIVE (NEGATIVE); *COCAINE SCREEN URINE NEGATIVE (NEGATIVE); METHADONE URINE SCREEN NEGATIVE (NEGATIVE); OPIATES URINE SCREEN NEGATIVE (NEGATIVE)
[2021-04-03 11:16] LABS: CANNABINOID URINE SCREEN NEGATIVE (NEGATIVE); PHENCYCLIDINE URINE SCREEN NEGATIVE (NEGATIVE)
[2021-04-03 11:30] VITALS: BP 168/98
== END 2021-04-03 11:54 | disposition home or self-care (01) ==
LOC: ER 01:43
DX: F41.9 Anxiety disorder, unspecified (principal); I10 Essential (primary) hypertension; R07.89 Other chest pain; R00.0 Tachycardia, unspecified; F15.10 Other stimulant abuse, uncomplicated; E66.9 Obesity, unspecified; Z68.38 Body mass index [BMI] 38.0-38.9, adult
CPT/HCPCS: 36415; 71275; 80053; 80305; 80307; 80320; 80329; 81003; 83880; 84484; 85025; 93005; 96361; 96374; 96376; 99285; J2060; J7030; Q9967; G0480

== ENCOUNTER 2021-04-15 05:34 | Emergency (ER) | payer MEDICAID ==
[~2021-04-15] VITALS: Ht 167.6 cm; Wt 109.0 kg
[~2021-04-15 05:34] MED LIST changes: +HYDR-3782 MT
[2021-04-15] MEDS ORDERED: LORAZEPAM 2MG/ML CPJ IV ONE ×2 (06:00→07:45)
[2021-04-15] MEDS ORDERED: SODIUM CHLORIDE 0.9% 1,000 ML IV ONE (06:00)
[2021-04-15 06:25] LABS: BASOPHILS % 0.6 % (0.0-2.0); EOSINOPHILS % 0.4 % (0.0-5.0); HEMOGLOBIN. 13.8 g/dL (14.0-18.0); LYMPHOCYTES % 23.3 % (20.0-50.0); MEAN CORPUSCULAR HEMOGLOBIN 30.8 pg (28.0-32.0); MEAN CORPUSCULAR VOLUME 91.8 fL (80.0-94.0); MEAN PLATELET VOLUME 8.7 fl (7.4-10.4); MONOCYTES % 12.5 % (2.0-8.0); NEUTROPHILS % 63.2 % (40.0-76.0); PLATELET 264 x1000/uL (130-400); RED BLOOD CELL COUNT 4.47 mill/uL (4.7-6.1); RED CELL DISTRIBUTION WIDTH 15.8 % (11.6-14.6)
[2021-04-15 06:30] LABS: CHLORIDE 103 mEq/L (98-107)
[2021-04-15 08:40] VITALS: BP 157/107
== END 2021-04-15 08:50 | disposition home or self-care (01) ==
LOC: ER 05:34
DX: F15.129 Other stimulant abuse with intoxication, unspecified (principal); R07.89 Other chest pain
CPT/HCPCS: 36415; 71045; 80053; 83880; 84484; 85025; 93005; 96361; 96374; 96376; 99285; J2060; J7030

== ENCOUNTER 2021-04-18 06:04 | Emergency (ER) | payer MEDICAID ==
[~2021-04-18] VITALS: Ht 167.6 cm; Wt 109.0 kg
[2021-04-18] MEDS ORDERED: PANTOPRAZOLE SODIUM 40 MG/VIAL IV ONE (07:00)
[2021-04-18] MEDS ORDERED: SODIUM CHLORIDE 0.9% 1,000 ML IV ONE (07:00)
[2021-04-18 07:20] LABS: BASOPHILS % 0.2 % (0.0-2.0); EOSINOPHILS % 0.1 % (0.0-5.0); HEMATOCRIT. 42.8 % (42.0-52.0); HEMOGLOBIN. 14.2 g/dL (14.0-18.0); LYMPHOCYTES % 24.1 % (20.0-50.0); MEAN CORPUSCULAR HEMOGLOBIN 30.6 pg (28.0-32.0); MEAN CORPUSCULAR VOLUME 92.2 fL (80.0-94.0); MEAN PLATELET VOLUME 8.7 fl (7.4-10.4); MONOCYTES % 8.2 % (2.0-8.0); NEUTROPHILS % 67.4 % (40.0-76.0); PLATELET 253 x1000/uL (130-400); RED BLOOD CELL COUNT 4.64 mill/uL (4.7-6.1); RED CELL DISTRIBUTION WIDTH 15.9 % (11.6-14.6)
[2021-04-18 07:29] LABS: CHLORIDE 106 mEq/L (98-107)
[2021-04-18 07:33] LABS: ETHANOL BLOOD 83 mg/dL
[2021-04-18] MEDS ORDERED: AMOX-424 MT (09:40)
[2021-04-18] MEDS ORDERED: POLY119P2 MT (09:41)
[2021-04-18] MEDS ORDERED: POTASSIUM CHLORIDE 20MEQ TABLET SR PO NR (09:45)
[2021-04-18 10:02] VITALS: BP 160/99
[2021-04-18] MEDS ORDERED: IOHEXOL-300 100 ML BOTTLE ONE (10:21)
== END 2021-04-18 10:09 | disposition home or self-care (01) ==
LOC: ER 06:04
DX: K57.92 Diverticulitis of intestine, part unspecified, without perforation or abscess without bleeding (principal); Z79.899 Other long term (current) drug therapy
CPT/HCPCS: 36415; 74177; 80053; 80320; 83690; 85025; 96374; 99285; C9113; J7030; Q9967; G0480

== ENCOUNTER 2021-04-27 00:07 | Emergency (ER) | payer MEDICAID ==
[~2021-04-27] VITALS: Ht 177.8 cm; Wt 118.0 kg
[~2021-04-27 00:07] MED LIST changes: +AMOX-424 MT; +POLY119P2 MT
[2021-04-27 00:14] VITALS: BP 167/113
[2021-04-27] MEDS ORDERED: LORAZEPAM 1MG TABLET PO ONE (00:30)
== END 2021-04-27 01:01 | disposition home or self-care (01) ==
LOC: ER 00:07
DX: R07.9 Chest pain, unspecified (principal); R00.2 Palpitations; R00.0 Tachycardia, unspecified; F41.9 Anxiety disorder, unspecified; Z79.899 Other long term (current) drug therapy
CPT/HCPCS: 99283

== ENCOUNTER 2021-04-27 01:26 | Emergency (ER) | payer MEDICAID ==
[~2021-04-27] VITALS: Ht 167.6 cm; Wt 100.0 kg
[2021-04-27 01:45] VITALS: BP 167/109
[2021-04-27] MEDS ORDERED: ACETAMINOPHEN 325MG TABLET PO STA (05:18)
[2021-04-27] MEDS ORDERED: LORAZEPAM 1MG TABLET PO ONE (05:30)
== END 2021-04-27 10:36 | disposition left against medical advice (07) ==
LOC: ER 01:26
DX: R07.9 Chest pain, unspecified (principal); F15.10 Other stimulant abuse, uncomplicated; R00.0 Tachycardia, unspecified; Z79.899 Other long term (current) drug therapy
CPT/HCPCS: 93005; 99283

== ENCOUNTER 2021-05-07 02:08 | Emergency (ER) | payer MEDICAID ==
[~2021-05-07] VITALS: Ht 167.6 cm; Wt 100.0 kg
[2021-05-07 02:19] VITALS: BP 165/107
[2021-05-07] MEDS ORDERED: ASPIRIN 81MG TABLET PO ONE (05:45)
[2021-05-07 06:59] LABS: BASOPHILS % 0.4 % (0.0-2.0); EOSINOPHILS % 0.2 % (0.0-5.0); HEMATOCRIT. 43.5 % (42.0-52.0); HEMOGLOBIN. 14.5 g/dL (14.0-18.0); LYMPHOCYTES % 16.8 % (20.0-50.0); MEAN CORPUSCULAR HEMOGLOBIN 31.1 pg (28.0-32.0); MEAN CORPUSCULAR VOLUME 93.2 fL (80.0-94.0); MONOCYTES % 8.5 % (2.0-8.0); NEUTROPHILS % 74.1 % (40.0-76.0); PLATELET 288 x1000/uL (130-400); RED BLOOD CELL COUNT 4.67 mill/uL (4.7-6.1); RED CELL DISTRIBUTION WIDTH 15.7 % (11.6-14.6)
[2021-05-07 07:09] LABS: CHLORIDE 107 mEq/L (98-107)
[2021-05-07 07:13] LABS: ETHANOL BLOOD 22 mg/dL
[2021-05-07] MEDS ORDERED: ACET-2708 MT (13:36)
== END 2021-05-07 11:30 ==
LOC: ER 04:38
DX: R07.89 Other chest pain (principal); F10.129 Alcohol abuse with intoxication, unspecified; Y90.1 Blood alcohol level of 20-39 mg/100 ml
CPT/HCPCS: 36415; 71045; 80053; 80320; 83880; 84484; 85025; 93005; 99285; G0480

== ENCOUNTER 2021-05-07 11:10 | Emergency (ER) | payer MEDICAID ==
[~2021-05-07] VITALS: Ht 172.7 cm; Wt 93.0 kg
[2021-05-07 11:12] VITALS: BP 136/84
[2021-05-07] MEDS ORDERED: ACETAMINOPHEN 325MG TABLET PO STA (11:26)
[2021-05-07] MEDS ORDERED: MAGNESIUM/ALUMINUM HYDROXIDE/SIMETHICONE 30ML UDC PO STA (11:26)
[2021-05-07] MEDS ORDERED: ACET-2708 MT (13:36)
== END 2021-05-07 13:48 | disposition home or self-care (01) ==
LOC: ER 11:10
DX: R10.84 Generalized abdominal pain (principal); F15.10 Other stimulant abuse, uncomplicated; Z98.890 Other specified postprocedural states; Z79.899 Other long term (current) drug therapy
CPT/HCPCS: 74176; 99284

== ENCOUNTER 2021-05-10 02:03 | Emergency (ER) | payer MEDICAID ==
[~2021-05-10] VITALS: Ht 167.6 cm; Wt 109.0 kg
[~2021-05-10 02:03] MED LIST changes: +ACET-2708 MT
[2021-05-10 02:07] VITALS: BP 156/103
[2021-05-10 02:43] LABS: BASOPHILS % 0.2 % (0.0-2.0); EOSINOPHILS % 0.2 % (0.0-5.0); HEMATOCRIT. 42.6 % (42.0-52.0); HEMOGLOBIN. 14.2 g/dL (14.0-18.0); MEAN CORPUSCULAR HEMOGLOBIN 31.4 pg (28.0-32.0); MEAN CORPUSCULAR VOLUME 94.3 fL (80.0-94.0); MEAN PLATELET VOLUME 8.6 fl (7.4-10.4); MONOCYTES % 8.2 % (2.0-8.0); NEUTROPHILS % 78.4 % (40.0-76.0); PLATELET 235 x1000/uL (130-400); RED BLOOD CELL COUNT 4.52 mill/uL (4.7-6.1); RED CELL DISTRIBUTION WIDTH 15.9 % (11.6-14.6)
[2021-05-10 02:44] LABS: CHLORIDE 105 mEq/L (98-107)
[2021-05-10] MEDS ORDERED: ACETAMINOPHEN 325MG TABLET PO ONE ×2 (05:00→05:30)
== END 2021-05-10 05:52 | disposition home or self-care (01) ==
LOC: ER 02:03
DX: F15.188 Other stimulant abuse with other stimulant-induced disorder (principal); R07.89 Other chest pain; Z71.51 Drug abuse counseling and surveillance of drug abuser; R00.0 Tachycardia, unspecified; R03.0 Elevated blood-pressure reading, without diagnosis of hypertension
CPT/HCPCS: 36415; 71045; 80053; 84484; 85025; 93005; 99285

== ENCOUNTER 2021-05-18 00:37 | Emergency (ER) | payer MEDICAID ==
[~2021-05-18] VITALS: Ht 167.6 cm; Wt 240.0 kg
[2021-05-18 03:43] LABS: BASOPHILS % 0.4 % (0.0-2.0); EOSINOPHILS % 0.1 % (0.0-5.0); HEMATOCRIT. 41.9 % (42.0-52.0); HEMOGLOBIN. 14.3 g/dL (14.0-18.0); LYMPHOCYTES % 23.5 % (20.0-50.0); MEAN CORPUSCULAR HEMOGLOBIN 31.3 pg (28.0-32.0); MEAN CORPUSCULAR VOLUME 91.9 fL (80.0-94.0); MEAN PLATELET VOLUME 8.5 fl (7.4-10.4); MONOCYTES % 8.5 % (2.0-8.0); NEUTROPHILS % 67.5 % (40.0-76.0); PLATELET 270 x1000/uL (130-400); RED BLOOD CELL COUNT 4.56 mill/uL (4.7-6.1); RED CELL DISTRIBUTION WIDTH 15.3 % (11.6-14.6)
[2021-05-18 03:56] LABS: CHLORIDE 107 mEq/L (98-107)
[2021-05-18 04:28] VITALS: BP 175/110
== END 2021-05-18 04:30 | disposition home or self-care (01) ==
LOC: ER 00:37
DX: R07.89 Other chest pain (principal); F15.10 Other stimulant abuse, uncomplicated; Z79.899 Other long term (current) drug therapy
CPT/HCPCS: 36415; 71045; 80053; 84484; 85025; 93005; 99285

== ENCOUNTER 2021-05-18 06:01 | Emergency (ER) | payer MEDICAID ==
[~2021-05-18] VITALS: Ht 167.6 cm; Wt 105.0 kg
[2021-05-18 06:47] LABS: BASOPHILS % 0.4 % (0.0-2.0); EOSINOPHILS % 0.1 % (0.0-5.0); HEMATOCRIT. 41.9 % (42.0-52.0); HEMOGLOBIN. 13.9 g/dL (14.0-18.0); LYMPHOCYTES % 15.7 % (20.0-50.0); MEAN CORPUSCULAR HEMOGLOBIN 30.6 pg (28.0-32.0); MEAN CORPUSCULAR VOLUME 91.9 fL (80.0-94.0); MEAN PLATELET VOLUME 8.3 fl (7.4-10.4); MONOCYTES % 10.1 % (2.0-8.0); NEUTROPHILS % 73.7 % (40.0-76.0); PLATELET 264 x1000/uL (130-400); RED BLOOD CELL COUNT 4.56 mill/uL (4.7-6.1); RED CELL DISTRIBUTION WIDTH 15.3 % (11.6-14.6)
[2021-05-18 06:50] LABS: CHLORIDE 107 mEq/L (98-107)
[2021-05-18 10:48] VITALS: BP 166/102
== END 2021-05-18 10:49 | disposition home or self-care (01) ==
LOC: ER 06:01
DX: F15.90 Other stimulant use, unspecified, uncomplicated (principal); R07.89 Other chest pain; Z79.899 Other long term (current) drug therapy
CPT/HCPCS: 36415; 80053; 84484; 85025; 93005; 99285

== ENCOUNTER 2021-05-21 01:20 | Emergency (ER) | payer MEDICAID ==
[~2021-05-21] VITALS: Ht 167.6 cm; Wt 109.0 kg
[2021-05-21 02:30] VITALS: BP 150/108
[2021-05-21] MEDS ORDERED: ASPIRIN 325MG EC TABLET PO ONE (02:30)
[2021-05-21] MEDS ORDERED: HYDROCODONE/ACETAMINOPHEN 5/325MG TABLET PO ONE (02:30)
== END 2021-05-21 03:33 | disposition home or self-care (01) ==
LOC: ER 01:20
DX: U07.1 COVID-19 (principal); R07.89 Other chest pain; F17.200 Nicotine dependence, unspecified, uncomplicated; Z79.899 Other long term (current) drug therapy
CPT/HCPCS: 93005; 99283

== ENCOUNTER 2021-05-25 00:05 | Emergency (ER) | payer MEDICAID ==
[~2021-05-25] VITALS: Ht 167.6 cm; Wt 133.0 kg
[2021-05-25 00:40] LABS: BASOPHILS % 0.4 % (0.0-2.0); EOSINOPHILS % 0.1 % (0.0-5.0); HEMATOCRIT. 40.4 % (42.0-52.0); HEMOGLOBIN. 13.8 g/dL (14.0-18.0); LYMPHOCYTES % 20.9 % (20.0-50.0); MEAN CORPUSCULAR HEMOGLOBIN 31.4 pg (28.0-32.0); MEAN CORPUSCULAR VOLUME 91.9 fL (80.0-94.0); MEAN PLATELET VOLUME 8.2 fl (7.4-10.4); MONOCYTES % 5.5 % (2.0-8.0); NEUTROPHILS % 73.1 % (40.0-76.0); PLATELET 304 x1000/uL (130-400); RED BLOOD CELL COUNT 4.39 mill/uL (4.7-6.1); RED CELL DISTRIBUTION WIDTH 15.6 % (11.6-14.6)
[2021-05-25 00:58] LABS: CHLORIDE 106 mEq/L (98-107)
[2021-05-25] MEDS ORDERED: IBUPROFEN 600MG TABLET PO ONE (01:30)
[2021-05-25 01:57] VITALS: BP 148/102
== END 2021-05-25 02:30 | disposition left against medical advice (07) ==
LOC: ER 00:05
DX: R07.89 Other chest pain (principal); Z53.21 Procedure and treatment not carried out due to patient leaving prior to being seen by health care provider
CPT/HCPCS: 36415; 71045; 80053; 83880; 84484; 85025; 93005; 99285

== ENCOUNTER 2021-05-25 08:30 | Emergency (ER) | payer MEDICAID ==
[~2021-05-25] VITALS: Ht 167.6 cm; Wt 109.0 kg
[2021-05-25] MEDS ORDERED: ASPIRIN 325MG EC TABLET PO ONE (09:15)
[2021-05-25 09:50] LABS: BASOPHILS % 0.5 % (0.0-2.0); EOSINOPHILS % 0.1 % (0.0-5.0); HEMATOCRIT. 41.1 % (42.0-52.0); HEMOGLOBIN. 13.9 g/dL (14.0-18.0); LYMPHOCYTES % 14.5 % (20.0-50.0); MEAN CORPUSCULAR VOLUME 91.6 fL (80.0-94.0); MEAN PLATELET VOLUME 8.5 fl (7.4-10.4); MONOCYTES % 5.9 % (2.0-8.0); PLATELET 297 x1000/uL (130-400); RED BLOOD CELL COUNT 4.49 mill/uL (4.7-6.1)
[2021-05-25 09:55] LABS: CHLORIDE 104 mEq/L (98-107)
[2021-05-25 12:53] VITALS: BP 157/116
[2021-05-25] MEDS ORDERED: MAGNESIUM/ALUMINUM HYDROXIDE/SIMETHICONE 30ML UDC PO STA (13:23)
[2021-05-25] MEDS ORDERED: ACETAMINOPHEN 325MG TABLET PO ONE (13:30)
[2021-05-25] MEDS ORDERED: IBUPROFEN 600MG TABLET PO ONE (13:30)
== END 2021-05-25 14:25 | disposition left against medical advice (07) ==
LOC: ER 08:30
DX: R07.89 Other chest pain (principal)
CPT/HCPCS: 36415; 71045; 80053; 83880; 84484; 85025; 85379; 99284

== ENCOUNTER 2021-06-10 00:44 | Emergency (ER) | payer MEDICAID ==
[~2021-06-10] VITALS: Ht 167.6 cm; Wt 96.0 kg
[2021-06-10] MEDS ORDERED: ACETAMINOPHEN 500MG TABLET PO ONE (01:15)
[2021-06-10 01:26] VITALS: BP 132/100
== END 2021-06-10 01:35 | disposition home or self-care (01) ==
LOC: ER 00:44
DX: M25.562 Pain in left knee (principal); M25.561 Pain in right knee; F15.129 Other stimulant abuse with intoxication, unspecified
CPT/HCPCS: 99282

== ENCOUNTER 2021-06-10 05:38 | Emergency (ER) | payer MEDICAID ==
[~2021-06-10] VITALS: Ht 167.6 cm; Wt 91.0 kg
[2021-06-10] MEDS ORDERED: IBUPROFEN 600MG TABLET PO STA (05:56)
[2021-06-10 06:18] LABS: BASOPHILS % 0.4 % (0.0-2.0); HEMATOCRIT. 43.1 % (42.0-52.0); HEMOGLOBIN. 14.7 g/dL (14.0-18.0); LYMPHOCYTES % 14.4 % (20.0-50.0); MEAN CORPUSCULAR HEMOGLOBIN 30.9 pg (28.0-32.0); MEAN CORPUSCULAR VOLUME 90.5 fL (80.0-94.0); MEAN PLATELET VOLUME 8.5 fl (7.4-10.4); MONOCYTES % 5.7 % (2.0-8.0); NEUTROPHILS % 79.5 % (40.0-76.0); PLATELET 243 x1000/uL (130-400); RED BLOOD CELL COUNT 4.76 mill/uL (4.7-6.1); RED CELL DISTRIBUTION WIDTH 16.3 % (11.6-14.6)
[2021-06-10 06:36] LABS: CHLORIDE 108 mEq/L (98-107)
[2021-06-10 06:40] LABS: ETHANOL BLOOD < 10 mg/dL
[2021-06-10 11:16] VITALS: BP 170/89
== END 2021-06-10 11:20 | disposition home or self-care (01) ==
LOC: ER 05:38
DX: M79.10 Myalgia, unspecified site (principal); R00.0 Tachycardia, unspecified; F15.10 Other stimulant abuse, uncomplicated
CPT/HCPCS: 36415; 80053; 80320; 85025; 99283; G0480

== ENCOUNTER 2021-06-12 06:55 | Emergency (ER) | payer MEDICAID ==
[~2021-06-12] VITALS: Ht 170.2 cm; Wt 91.0 kg
[2021-06-12] MEDS ORDERED: MAGNESIUM/ALUMINUM HYDROXIDE/SIMETHICONE 30ML UDC PO STA (07:13)
[2021-06-12] MEDS ORDERED: LORAZEPAM 1MG TABLET PO ONE (07:15)
[2021-06-12] MEDS ORDERED: FAMOTIDINE 20MG TABLET PO SCH (07:15)
[2021-06-12 08:25] LABS: BASOPHILS % 0.3 % (0.0-2.0); HEMATOCRIT. 42.5 % (42.0-52.0); HEMOGLOBIN. 14.4 g/dL (14.0-18.0); LYMPHOCYTES % 16.9 % (20.0-50.0); MEAN CORPUSCULAR VOLUME 91.4 fL (80.0-94.0); MEAN PLATELET VOLUME 8.7 fl (7.4-10.4); MONOCYTES % 6.6 % (2.0-8.0); NEUTROPHILS % 76.2 % (40.0-76.0); PLATELET 242 x1000/uL (130-400); RED BLOOD CELL COUNT 4.65 mill/uL (4.7-6.1); RED CELL DISTRIBUTION WIDTH 16.1 % (11.6-14.6)
[2021-06-12 08:32] LABS: CHLORIDE 104 mEq/L (98-107); PROTHROMBIN TIME 10.9 sec (9.6-11.0)
[2021-06-12 08:36] LABS: ETHANOL BLOOD 16 mg/dL
[2021-06-12] MEDS ORDERED: SIME80TA15 MT (09:55)
[2021-06-12] MEDS ORDERED: FAMO-135 MT (09:55)
[2021-06-12] MEDS ORDERED: POTASSIUM CHLORIDE 20MEQ TABLET SR PO ONE (10:00)
[2021-06-12 10:58] LABS: CLARITY URINE CLEAR (CLEAR); COLOR URINE YELLOW (YELLOW); KETONES URINE 1+ (NEGATIVE); LEUKOCYTE ESTERASE URINE NEGATIVE (NEGATIVE); NITRITE URINE NEGATIVE (NEGATIVE); OCCULT BLOOD URINE NEGATIVE (NEGATIVE); PH URINE 5.5 (4.5-8.0); PROTEIN URINE 1+ (NEGATIVE); SPECIFIC GRAVITY URINE 1.021 (1.005-1.030)
[2021-06-12 11:01] VITALS: BP 183/113
== END 2021-06-12 11:07 | disposition home or self-care (01) ==
LOC: ER 07:02
DX: R10.9 Unspecified abdominal pain (principal); F15.10 Other stimulant abuse, uncomplicated; E66.9 Obesity, unspecified; Z68.31 Body mass index [BMI] 31.0-31.9, adult
CPT/HCPCS: 36415; 74176; 80053; 80320; 81003; 83690; 85025; 85610; 86850; 86900; 86901; 93005; 99285; Z7610; G0480

== ENCOUNTER 2021-09-25 08:15 | Emergency (ER) | payer MEDICAID ==
[~2021-09-25] VITALS: Ht 167.6 cm; Wt 109.0 kg
[~2021-09-25 08:15] MED LIST changes: +FAMO-135 MT; +SIME80TA15 MT
[2021-09-25 08:23] VITALS: BP 168/120
== END 2021-09-25 18:57 | disposition left against medical advice (07) ==
LOC: ER 08:22
DX: R10.9 Unspecified abdominal pain (principal); F15.10 Other stimulant abuse, uncomplicated; F17.210 Nicotine dependence, cigarettes, uncomplicated
CPT/HCPCS: 99281

== ENCOUNTER 2021-12-15 06:27 | Emergency (ER) | payer MEDICAID ==
[~2021-12-15] VITALS: Ht 167.6 cm; Wt 95.0 kg
[2021-12-15 06:31] VITALS: BP 170/120
[2021-12-15 08:15] LABS: BASOPHILS % 0.6 % (0.0-2.0); CHLORIDE 106 mEq/L (98-107); HEMATOCRIT. 44.3 % (42.0-52.0); LYMPHOCYTES % 15.2 % (20.0-50.0); MEAN CORPUSCULAR HEMOGLOBIN 32.1 pg (28.0-32.0); MEAN CORPUSCULAR VOLUME 94.6 fL (80.0-94.0); MEAN PLATELET VOLUME 8.5 fl (7.4-10.4); MONOCYTES % 6.1 % (2.0-8.0); NEUTROPHILS % 78.1 % (40.0-76.0); PLATELET 249 x1000/uL (130-400); RED BLOOD CELL COUNT 4.68 mill/uL (4.7-6.1); RED CELL DISTRIBUTION WIDTH 15.7 % (11.6-14.6)
[2021-12-15 08:23] LABS: ETHANOL BLOOD 26 mg/dL
[2021-12-15 08:41] LABS: CLARITY URINE CLEAR (CLEAR); COLOR URINE YELLOW (YELLOW); KETONES URINE TRACE (NEGATIVE); LEUKOCYTE ESTERASE URINE NEGATIVE (NEGATIVE); NITRITE URINE NEGATIVE (NEGATIVE); OCCULT BLOOD URINE NEGATIVE (NEGATIVE); PROTEIN URINE 1+ (NEGATIVE); UROBILINOGEN URINE 0.2 E.U./dL (0.2-1.0)
[2021-12-15] MEDS ORDERED: ACETAMINOPHEN 325MG TABLET PO ONE (08:45)
[2021-12-15 09:04] LABS: *AMPHETAMINES SCREEN URINE PRESUMTIVE POSITIVE (NEGATIVE); *BARBITURATES SCREEN URINE NEGATIVE (NEGATIVE); *BENZODIAZEPINES SCREEN URINE NEGATIVE (NEGATIVE); *COCAINE SCREEN URINE NEGATIVE (NEGATIVE); CANNABINOID URINE SCREEN NEGATIVE (NEGATIVE); METHADONE URINE SCREEN NEGATIVE (NEGATIVE); OPIATES URINE SCREEN NEGATIVE (NEGATIVE); PHENCYCLIDINE URINE SCREEN NEGATIVE (NEGATIVE)
== END 2021-12-15 08:50 | disposition home or self-care (01) ==
LOC: ER 06:27
DX: R07.89 Other chest pain (principal); F15.10 Other stimulant abuse, uncomplicated
CPT/HCPCS: 36415; 71045; 80053; 80305; 80320; 81003; 82962; 85025; 93005; 99285; G0480

== ENCOUNTER 2021-12-15 09:51 | Emergency (ER) | payer MEDICAID ==
[~2021-12-15] VITALS: Ht 167.6 cm; Wt 109.0 kg
[2021-12-15] MEDS ORDERED: IBUPROFEN 400MG TABLET PO ONE (10:00)
[2021-12-15] MEDS ORDERED: LORAZEPAM 0.5MG TABLET PO ONE (10:15)
[2021-12-15] MEDS ORDERED: AMLODIPINE 10MG TABLET PO ONE (11:00)
[2021-12-15] MEDS ORDERED: AMLODIPINE 10MG TABLET PO NR (12:45)
[2021-12-15 12:54] VITALS: BP 174/117
== END 2021-12-15 12:57 | disposition home or self-care (01) ==
LOC: ER 09:51
DX: I10 Essential (primary) hypertension (principal); R07.89 Other chest pain; F15.10 Other stimulant abuse, uncomplicated
CPT/HCPCS: 93005; 99284

== ENCOUNTER 2021-12-30 02:18 | Emergency (ER) | payer MEDICAID ==
[~2021-12-30] VITALS: Ht 172.7 cm; Wt 86.1 kg
[2021-12-30 05:21] LABS: BASOPHILS % 0.4 % (0.0-2.0); CHLORIDE 105 mEq/L (98-107); EOSINOPHILS % 0.3 % (0.0-5.0); HEMATOCRIT. 43.1 % (42.0-52.0); HEMOGLOBIN. 14.5 g/dL (14.0-18.0); LYMPHOCYTES % 21.5 % (20.0-50.0); MEAN CORPUSCULAR HEMOGLOBIN 32.2 pg (28.0-32.0); MEAN CORPUSCULAR VOLUME 95.8 fL (80.0-94.0); MEAN PLATELET VOLUME 8.5 fl (7.4-10.4); MONOCYTES % 10.5 % (2.0-8.0); NEUTROPHILS % 67.3 % (40.0-76.0); PLATELET 221 x1000/uL (130-400); RED CELL DISTRIBUTION WIDTH 15.8 % (11.6-14.6)
[2021-12-30 05:32] LABS: ETHANOL BLOOD 30 mg/dL
[2021-12-30] MEDS ORDERED: KETOROLAC 30MG/ML VIAL IV NR (05:45)
[2021-12-30 06:27] LABS: *AMPHETAMINES SCREEN URINE PRESUMTIVE POSITIVE (NEGATIVE); *BARBITURATES SCREEN URINE NEGATIVE (NEGATIVE); *BENZODIAZEPINES SCREEN URINE PRESUMTIVE POSITIVE (NEGATIVE); *COCAINE SCREEN URINE NEGATIVE (NEGATIVE); CANNABINOID URINE SCREEN NEGATIVE (NEGATIVE); METHADONE URINE SCREEN NEGATIVE (NEGATIVE); OPIATES URINE SCREEN NEGATIVE (NEGATIVE); PHENCYCLIDINE URINE SCREEN NEGATIVE (NEGATIVE)
[2021-12-30 06:40] LABS: CLARITY URINE CLOUDY (CLEAR); COLOR URINE YELLOW (YELLOW); KETONES URINE 2+ (NEGATIVE); LEUKOCYTE ESTERASE URINE NEGATIVE (NEGATIVE); NITRITE URINE NEGATIVE (NEGATIVE); OCCULT BLOOD URINE NEGATIVE (NEGATIVE); PH URINE 5.5 (4.5-8.0); PROTEIN URINE TRACE (NEGATIVE); SPECIFIC GRAVITY URINE 1.025 (1.005-1.030)
[2021-12-30 06:54] VITALS: BP 148/103
== END 2021-12-30 07:02 | disposition home or self-care (01) ==
LOC: ER 02:18
DX: R07.89 Other chest pain (principal); R00.0 Tachycardia, unspecified; F15.10 Other stimulant abuse, uncomplicated; F16.10 Hallucinogen abuse, uncomplicated; F13.10 Sedative, hypnotic or anxiolytic abuse, uncomplicated; R10.9 Unspecified abdominal pain
CPT/HCPCS: 36415; 71045; 80053; 80305; 80320; 81003; 83690; 83880; 85025; 96374; 99284; J1885; G0480

== ENCOUNTER 2022-02-05 01:47 | Emergency (ER) | payer MEDICAID ==
[~2022-02-05] VITALS: Ht 167.6 cm; Wt 100.0 kg
[2022-02-05] MEDS ORDERED: LORAZEPAM 1MG TABLET PO ONE (04:00)
[2022-02-05] MEDS ORDERED: ACETAMINOPHEN 500MG TABLET PO ONE (04:00)
[2022-02-05 04:26] LABS: BASOPHILS % 1.2 % (0.0-2.0); EOSINOPHILS % 0.2 % (0.0-5.0); HEMATOCRIT. 45.9 % (42.0-52.0); HEMOGLOBIN. 15.9 g/dL (14.0-18.0); LYMPHOCYTES % 21.5 % (20.0-50.0); MEAN CORPUSCULAR HEMOGLOBIN 32.4 pg (28.0-32.0); MEAN CORPUSCULAR VOLUME 93.7 fL (80.0-94.0); NEUTROPHILS % 71.1 % (40.0-76.0); RED CELL DISTRIBUTION WIDTH 14.9 % (11.6-14.6)
[2022-02-05] MEDS ORDERED: ASPIRIN 81MG TABLET PO ONE (04:30)
[2022-02-05] MEDS ORDERED: SODIUM CHLORIDE 0.9% 1,000 ML IV ONE (04:30)
[2022-02-05 04:41] LABS: CHLORIDE 103 mEq/L (98-107)
[2022-02-05 04:52] LABS: ETHANOL BLOOD 131 mg/dL
[2022-02-05 04:59] LABS: MEAN PLATELET VOLUME 8.9 fl (7.4-10.4); PLATELET 237 x1000/uL (130-400)
[2022-02-05] MEDS ORDERED: IBUPROFEN 600MG TABLET PO ONE (06:15)
[2022-02-05 07:44] LABS: CLARITY URINE CLEAR (CLEAR); COLOR URINE YELLOW (YELLOW); KETONES URINE TRACE (NEGATIVE); LEUKOCYTE ESTERASE URINE NEGATIVE (NEGATIVE); NITRITE URINE NEGATIVE (NEGATIVE); OCCULT BLOOD URINE NEGATIVE (NEGATIVE); PH URINE 6.5 (4.5-8.0); PROTEIN URINE 1+ (NEGATIVE); SPECIFIC GRAVITY URINE 1.016 (1.005-1.030); UROBILINOGEN URINE 0.2 E.U./dL (0.2-1.0)
[2022-02-05 07:47] LABS: *AMPHETAMINES SCREEN URINE PRESUMTIVE POSITIVE (NEGATIVE); *BARBITURATES SCREEN URINE NEGATIVE (NEGATIVE); *BENZODIAZEPINES SCREEN URINE NEGATIVE (NEGATIVE); *COCAINE SCREEN URINE NEGATIVE (NEGATIVE); CANNABINOID URINE SCREEN NEGATIVE (NEGATIVE); METHADONE URINE SCREEN NEGATIVE (NEGATIVE); OPIATES URINE SCREEN NEGATIVE (NEGATIVE); PHENCYCLIDINE URINE SCREEN NEGATIVE (NEGATIVE)
[2022-02-05] MEDS ORDERED: LORAZEPAM 2MG/ML CPJ IV ONE (08:15)
[2022-02-05 09:00] VITALS: BP 174/106
== END 2022-02-05 09:15 | disposition home or self-care (01) ==
LOC: ER 01:47
DX: R07.89 Other chest pain (principal); R51.9 Headache, unspecified; R00.0 Tachycardia, unspecified; F15.10 Other stimulant abuse, uncomplicated
CPT/HCPCS: 36415; 71045; 80053; 80305; 80320; 81003; 84484; 85025; 93005; 96374; 99285; J2060; J7030; Z7610; G0480

== ENCOUNTER 2022-03-29 02:02 | Emergency (ER) | payer MEDICAID ==
[~2022-03-29] VITALS: Ht 167.6 cm; Wt 100.0 kg
[2022-03-29] MEDS ORDERED: ACETAMINOPHEN 325MG TABLET PO STA (08:41)
[2022-03-29 10:06] LABS: BASOPHILS % 0.3 % (0.0-2.0); EOSINOPHILS % 0.1 % (0.0-5.0); HEMATOCRIT. 42.2 % (42.0-52.0); LYMPHOCYTES % 14.3 % (20.0-50.0); MEAN CORPUSCULAR HEMOGLOBIN 31.2 pg (28.0-32.0); MEAN CORPUSCULAR VOLUME 94.1 fL (80.0-94.0); MEAN PLATELET VOLUME 8.6 fl (7.4-10.4); MONOCYTES % 9.2 % (2.0-8.0); NEUTROPHILS % 76.1 % (40.0-76.0); PLATELET 262 x1000/uL (130-400); RED BLOOD CELL COUNT 4.48 mill/uL (4.7-6.1); RED CELL DISTRIBUTION WIDTH 15.9 % (11.6-14.6)
[2022-03-29 10:11] LABS: CHLORIDE 104 mEq/L (98-107)
[2022-03-29 10:19] LABS: ETHANOL BLOOD < 10 mg/dL
[2022-03-29 14:01] VITALS: BP 169/100
== END 2022-03-29 14:02 | disposition home or self-care (01) ==
LOC: ER 02:02
DX: R07.89 Other chest pain (principal); Z79.899 Other long term (current) drug therapy
CPT/HCPCS: 36415; 71045; 80053; 80320; 83880; 84484; 85025; 93005; 99285; G0480